=== PATIENT | female | born 1940 | race Caucasian/White ===

== ENCOUNTER 2017-02-20 09:25 | Inpatient (IN) ==
[2017-02-20] MEDS ORDERED: 0.9 % SODIUM CHLORIDE 250 ML IV SCH ×5 (09:45→14:20)
[2017-02-20 10:45] LABS: ALT/SGPT 6 U/l (0-40); Albumin/Globulin Ratio 1.7 (1.0-2.3); Alkaline Phosphatase 66 U/L (39-117); Blood Urea Nitrogen 17 mg/dl (8-23)
[2017-02-20 10:57] LABS: Basophils # (Auto) 0.1 K/mcL (0.0-0.3); Basophils % (Auto) 1.2 % (0.0-2.0); Eosinophils # (Auto) 0.4 K/mcL (0.0-0.7); Eosinophils % (Auto) 5.1 % (0.0-7.0); Granulocytes % (Auto) 75.6 % (38.0-78.0); Lymphocytes # (Auto) 1.1 K/mcL (1.5-4.8); Lymphocytes % (Auto) 15.1 % (15.5-49.0); Mean Cell Volume 95.9 fL (80.0-100.0); Mean Corpuscular HGB Conc 34.6 g/dL (31.0-36.0); Mean Corpuscular Hemoglobin 33.2 pg (26.0-34.0); Monocytes # (Auto) 0.2 K/mcL (0.1-0.9); Platelet Count 273 K/mcL (140-440); RBC 1.51 M/mcL (4.00-5.20); Red Cell Distribution Width 14.7 % (11.5-14.5)
[2017-02-20] MEDS ORDERED: ACETAMINOPHEN 325 MG TABLET PO ONE (11:20)
--- NOTE | 2017-02-20 11:47 | Emergency Department Note ---
Weakness HPI - General Chief complaint: Weakness Stated complaint: Weakness Time Seen by Provider: 02/20/17 09:58 Source: patient Mode of arrival: ambulatory Limitations: no limitations - History of Present Illness HPI Narrative: A 77-year-old female was sent over by nephrology because of a 5 point drop in hemoglobin found at last dialysis. She denies any blood or black stool. Her last labs it is normocytic anemia with a hemoglobin of 5.3 and MCV of 94. She denies any bleeding or bruising anywhere. She is not on a blood thinner. She feels weak and lightheaded since last week. She continues to have IBS symptoms of constipation versus diarrhea. No dysuria belly pain fever chills nausea vomiting. Notable recent kidney biopsy [address] Kuhn. I personally discussed the case with Dr. Harrison, the sequencing machine operator who sent her over - Related Data Home Medications Medication Instructions Recorded Confirmed lorazepam 1 mg tablet 1 mg PO .COMPLEX tab 09/14/14 02/20/17 lovastatin 40 mg tablet 40 mg PO QHS tab 09/14/14 02/20/17 nifedipine ER 30 mg 30 mg PO QDAY tab 09/14/14 02/20/17 tablet,extended release omega-3 fatty acids-fish oil 684 2 cap PO BID cap 09/14/14 02/20/17 mg-1,200 mg capsule,delayed release paroxetine 20 mg tablet 10 mg PO QDAY tab 09/14/14 02/20/17 propranolol 40 mg tablet 60 mg PO BID tab 09/14/14 02/20/17 Doxazosin Mesylate [Cardura] 1 mg PO BID 02/20/17 02/20/17 Omeprazole [PriLOSEC] 20 mg PO BIDAC 02/20/17 02/20/17 cloNIDine HCL [Catapres] 0.05 mg PO BID 02/20/17 02/20/17 Previous Rx's Medication Instructions Recorded enalapril maleate 20 mg tablet 10 mg PO QDAY #45 tab 01/24/16 calcium acetate 667 mg capsule 667 mg PO .TID with meals #270 cap 08/07/16 gabapentin 100 mg capsule 100 mg PO QHS #30 cap 11/09/16 furosemide 20 mg tablet 40 mg PO QDAY 30 Days #60 tab 11/10/16 sodium bicarbonate 650 mg tablet 1,300 mg PO BID 30 Days #120 tab 12/18/16 Allergies Allergy/AdvReac Type Severity Reaction Status Date / Time Tetracycline Allergy Severe Rash Verified 02/20/17 09:34 Hydralazine AdvReac Intermediate Other Verified 02/20/17 09:34 hydrocodone AdvReac Mild Other Verified 02/20/17 09:34 [From Lorcet (hydrocodone)] levofloxacin [From Levaquin] AdvReac Confusion Verified 02/20/17 09:34 Review of Systems All systems ED: reviewed and negative except as stated. Past Medical History - Past Medical History Attestation: Yes: The following information was validated with the patient. Medical history: Reports: arthritis, diabetes, GI bleed, hypertension, renal disease (On dialysis twice per week) Surgical history ED: Reports: cholecystectomy, hysterectomy, other (bladder, recent kidney biopsy) - Social History smoking status: Former smoker Physical Exam No acute distress. Resting comfortably. Normocephalic atraumatic. Conjunctive are clear sclerae nonicteric. No nasal discharge or congestion. Oropharynx is pink and moist. Heart is regular rate and rhythm no murmur appreciated. Lungs are clear to auscultation bilaterally without wheezes rales rhonchi or respiratory distress. Abdomen soft nontender nondistended. No peritoneal signs or guarding. Rectal exam shows old external hemorrhoid not actively bleeding. Fecal occult blood is negative. She has osteoarthritic changes to her hands mild to moderate. No pedal edema. Alert oriented able answer questions appropriately Limitations: no limitations Course Vital Signs Temperature 97.4 F 02/20/17 09:26 Respiratory Rate 14 02/20/17 09:26 Blood Pressure 149/49 02/20/17 09:26 Temperature 99.3 F H 02/21/17 04:01 Pulse Rate 62 02/21/17 06:01 Respiratory Rate 13 02/21/17 06:01 Blood Pressure 159/73 02/21/17 06:01 Pulse Oximetry (%) 99 02/21/17 06:01 Weakness - Lab Data Lab results reviewed: Yes I reviewed the patient's lab results. Result diagrams: 02/21/17 05:35 02/21/17 05:35 Lab Results 02/20/17 02/20/17 02/20/17 Range/Units 09:55 09:55 11:36 WBC 7.0 (4.5-11.0) K/mcL RBC 1.51 L (4.00-5.20) M/mcL Hgb 5.0 L* (12.0-15.0) g/dL Hct 14.4 L* (36.0-48.0) % MCV 95.9 (80.0-100.0) fL MCH 33.2 (26.0-34.0) pg MCHC 34.6 (31.0-36.0) g/dL RDW 14.7 H (11.5-14.5) % Plt Count 273 (140-440) K/mcL MPV 7.6 (7.4-10.4) fL Gran % 75.6 (38.0-78.0) % Lymph % (Auto) 15.1 L (15.5-49.0) % Citrus % (Auto) 3.0 (1.0-12.0) % Eos % (Auto) 5.1 (0.0-7.0) % Baso % (Auto) 1.2 (0.0-2.0) % Gran # 5.3 (1.8-8.0) K/mcL Lymph # (Auto) 1.1 L (1.5-4.8) K/mcL Citrus # (Auto) 0.2 (0.1-0.9) K/mcL Eos # (Auto) 0.4 (0.0-0.7) K/mcL Baso # (Auto) 0.1 (0.0-0.3) K/mcL Sodium 135 (133-145) mmol/L Potassium 3.3 (3.3-5.1) mmol/L Chloride 93 L (96-108) mmol/L Carbon Dioxide 30 (22-30) mmol/L Anion Gap 12.0 (8-16) BUN 17 (8-23) mg/dl Creatinine 1.8 H (0.6-1.1) mg/dl GFR Calculation 27 Glucose 137 H (70-105) mg/dL Calcium 8.3 L (8.6-10.4) mg/dl Total Bilirubin 0.3 (0.0-1.0) mg/dL AST 13 (0-37) U/l ALT 6 (0-40) U/l Alkaline Phosphatase 66 (39-117) U/L Total Protein 6.4 (5.9-8.4) gm/dL Albumin 4.0 (3.2-5.2) gm/dL Globulin 2.4 (2.2-3.7) gm/dL Albumin/Globulin Ratio 1.7 (1.0-2.3) Urine Color Straw Urine Appearance Clear Urine pH 8.0 (5.0-9.0) Ur Specific [place] 1.006 (1.000-1.035) Urine Protein 100 A (NEG) mg/dL Urine Glucose (UA) Negative (NEG) mg/dL Urine Ketones Neg (NEG) mg/dL Urine Occult Blood Neg (<0.03) mg/dL Urine Nitrate Neg (NEG) Urine Bilirubin Neg (NEG) mg/dL Urine Urobilinogen Neg (NEG) mg/dL Ur Leukocyte Esterase Neg (NEG) /uL Urine RBC 0 (0-1) /hpf Urine WBC < 1 (0-4) /hpf Ur Squamous Epith Cells 0 (0-4) /hpf Urine Bacteria 0 (0) /hpf Urine Mucus Few (0) /hpf Ur Culture Indicated? No - Radiology Data Radiology results reviewed: Yes I reviewed the patient's radiology results. Chest x-ray shows minimal vascular congestion CT scan of the abdomen pelvis without contrast shows no acute finding-no internal hemorrhage Disposition Pt seen by DESK REPRESENTATIVE/PA only: No Clinical Impression: Chronic kidney disease, stage IV (severe) Anemia Qualifiers: Anemia type: unspecified type Qualified Code(s): D64.9 - Anemia, unspecified Summary: Initially ordered 4 units of blood type and screen to go ahead and transfuse. We are avoiding using O- blood because the possibility of inducing antibodies, she has a possible donor match for transplant In the meantime we are giving her fluids and doing laboratory Discussed her case with Dr. Deondre Damon, our hospitalist, as well-she agrees to take the patient for further care and evaluation Disposition: Xfer As Inpt ([facility]) Condition: Fair
[2017-02-20 12:10] LABS: Appearance,Urine CLEAR; Bacteria,Urine 0 /hpf (0); Bilirubin,Urine NEG (NEG); Color,Urine STRAW; Glucose,Urine (UA) NEGATIVE (NEG); Leukocyte Esterase,Urine NEG /uL (NEG); Mucus,Urine FEW /hpf (0); Nitrate,Urine NEG (NEG); Protein,Urine 100 mg/dL (NEG); Specific Gravity,Urine 1.006 (1.000-1.035); Urine Blood NEG mg/dL (<0.03); Urine RBC 0 /hpf (0-1); Urine Squamous Epithelial Cell 0 /hpf (0-4); Urine WBC < 1 /hpf (0-4); Urobilinogen,Urine NEG (NEG)
--- NOTE | 2017-02-20 12:30 | Internal Med History&Physical ---
Medical - H&P: HPI Patient information: Note initiated : 02/20/17 at 12:26 pm Service Date, if different from initiated Date: [] Patient: Yessy Valderrama 77 y/o F admitted on for Weakness. Chief Complaint: [] History of present illness: Ms. 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 She had dialysis today, and apparently her labs showed her hemoglobin had dropped from 9 down to 5. Nephrology sent her over to be evaluated and ultimately admitted. The patient notes that she has been feeling quite weak and tired for about 1 week. She also reportedly had a kidney biopsy a few days ago. Her CAT scan from the ER did not show any signs of bleeding. She also reports that she was admitted here to the hospital last month with both diverticulitis and a stomach ulcer, and was started on Prilosec. I have a verbal report that her Epogen was held recently over concerns about possible renal cancer, but the patient is unaware of this. She states she does not take iron anymore. She denies any abdominal pain, nausea or vomiting or hemoptysis, or change in bowel habits. She denies bright red blood per rectum or melena. She says her bowel movements have always been irregular, but they are generally brown, and occur about every other day. She thinks she has been a little more short of breath the last few days, but says she is chronically short of breath with doing things like climbing stairs. Otherwise, she denies recent fever or chills, headaches or dizziness, new eye or ear symptoms, sore throat or cough, swollen glands, chest pain or palpitations, GI symptoms, dysuria. In spite of needing dialysis twice a week, she still drinks a fair amount of fluids during the day, and says she makes good urine. Medical History Prepyloric ulcer diagnosed on January 26, 2017. Diverticulitis (Acute), colon polyps diagnosed on colonoscopy October 19, 2016. Myelodysplastic syndrome. 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- Medicine Pathology, with focal global glomerulosclerosis, moderate tubular atrophy and interstitial fibrosis Edema (Chronic) Renal malignant neoplasm (Suspected) Hyponatremia (Acute) Hypokalemia (Acute) Gastroenteritis (Acute) Chronic kidney disease, stage IV (severe) (Chronic) S.Creat trend over the last one mth is 1.5-1.8-2.4-2.2-2.4-2.6-2.7 bun elevated 97-45-99-59-64-79-80 she has nephrotic range proteinuria she has monoclonal gammopathy and her KATIANA titer was mildly positive, repeat test was negative she also has h/o uncontrolled HTN renal biopsy shows arteriosclerosis from HTN, 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 and IF discussed with the pt renal function stable with no uremic symptoms dialysis options discussed, also discussed transplant options Hypertensive renal disease (Chronic) Diabetes mellitus (Chronic) She is on metformin for insulin resistance Anemia (Chronic)-baseline hemoglobin around 9.5, hematocrit 28 Secondary hyperparathyroidism of renal origin (Chronic) Hypercalcemia (Chronic) improved since indapamide was held she does have monoclonal gammopathy and she is following with oncology for this Hyponatremia (Chronic) intermittent low sodium levels, was severely low when she had vomiting and diarrhea Chronic kidney disease, stage III (moderate) (Chronic) History of bladder surgery (Acute) Renal failure (Acute 06/20/14) Progressive Renal Failure Proteinuria (Chronic 06/20/14) Insulin resistance (Acute)-nephrology reported history of type 2 diabetes, but patient is quite adamant that she just had insulin resistance, which she believes resolved. Hypertension, essential (Chronic 06/20/14) Will benefit from ACEI or ARB to help with proteinuria Surgical History Hx of biopsy (Chronic) 05/09/2015-[facility], Right kidney History of hysterectomy (Acute) History of cholecystectomy (Acute) History of surgery (Chronic 07/11/15) Bilateral upper extremity vein mapping Medication List calcium acetate 667 mg PO .TID with meals clonidine HCl 0.05 mg (1/2 x 0.1 mg) PO TID 30 days doxazosin 3 mg (1.5 x 2 mg) PO QDAY (order 1 mg p.o. twice daily) enalapril maleate 10 mg (1/2 x 20 mg) PO QDAY furosemide 40 mg (2 x 20 mg) PO QDAY 30 days gabapentin 100 mg PO QHS lorazepam 1 mg (patient reports she takes a half of a milligram 5 times a day) lovastatin 40 mg PO QHS nifedipine ER 30 mg PO QDAY omega-3 fatty acids-fish oil 684-1,200 mg 2 caps PO BID paroxetine 20 mg. Patient reports she takes 10 mg every morning, 20 mg nightly. propranolol 60 mg PO BID sodium bicarbonate 1,300 mg (2 x 650 mg) PO BID 30 days Omeprazole 20 mg p.o. twice daily Allergies/Adverse Reactions Tetracycline Allergy (Severe, Verified 02/03/17 09:12) Rash Hydralazine Adverse Reaction (Intermediate, Verified 02/03/17 09:12) Other acetaminophen [From Lorcet (hydrocodone)] Adverse Reaction (Mild, Verified 02/03 09:12) Other hydrocodone [From Lorcet (hydrocodone)] Adverse Reaction (Mild, Verified 09:12) Other levofloxacin [From Levaquin] Adverse Reaction (Verified 02/03/17 09:12) Confusion Family History Maternal Grandfather Chronic Kidney Disease Paternal Grandfather Type 1 diabetes mellitus Acute myocardial infarction Unknown Type 2 diabetes mellitus Father Malignant neoplasm-head and neck Acute myocardial infarction Paternal Grandmother Cerebrovascular accident Mother Cerebrovascular accident Social History Patient has been smoking since around age 32, up to 1 pack per day, she quit 8 months ago. She says she drinks alcohol about once a week. She does not use drugs. She lives alone. She has 2 daughters that live in [place]. Medical - H&P: Meds Home Medications Medication Instructions Recorded Confirmed Type lorazepam 1 mg tablet 1 mg PO .COMPLEX tab 09/14/14 02/20/17 History lovastatin 40 mg tablet 40 mg PO QHS tab 09/14/14 02/20/17 History nifedipine ER 30 mg 30 mg PO QDAY tab 09/14/14 02/20/17 History tablet,extended release omega-3 fatty acids-fish oil 684 2 cap PO BID cap 09/14/14 02/20/17 History mg-1,200 mg capsule,delayed release propranolol 40 mg tablet 60 mg PO BID tab 09/14/14 02/20/17 History enalapril maleate 20 mg tablet 10 mg PO QDAY #45 tab 01/24/16 02/20/17 Rx calcium acetate 667 mg capsule 667 mg PO .TID with meals #270 cap 08/07/1602/20 Rx gabapentin 100 mg capsule 100 mg PO QHS #30 cap 11/09/16 02/20/17 Rx furosemide 20 mg tablet 40 mg PO QDAY 30 Days #60 tab 11/10/16 02/20/17 Rx sodium bicarbonate 650 mg tablet 1,300 mg PO BID 30 Days #120 tab 12/18/1602/20 Rx Doxazosin Mesylate [Cardura] 1 mg PO BID 02/20/17 02/20/17 History Omeprazole [Prilosec] 20 mg PO BIDAC 02/20/17 02/20/17 History Acetaminophen [Tylenol] 650 mg PO Q6HP PRN tablet 02/21/17 Rx LORazepam [Ativan] 0.5 mg PO Q5H tablet 02/21/17 Rx Omeprazole [Prilosec] 20 mg PO BIDAC capsule 02/21/17 Rx PARoxetine HCL [Paxil] 10 mg PO QAM #1 tablet 02/21/17 Rx PARoxetine HCL [Paxil] 20 mg PO QHS #1 tab 02/21/17 Rx cloNIDine HCL [Catapres] 0.05 mg PO TID tablet 02/21/17 Rx Allergies Allergy/AdvReac Type Severity Reaction Status Date / Time Tetracycline Allergy Severe Rash Verified 02/20/17 09:34 Hydralazine AdvReac Intermediate Other Verified 02/20/17 09:34 hydrocodone AdvReac Mild Other Verified 02/20/17 09:34 [From Lorcet (hydrocodone)] levofloxacin [From Levaquin] AdvReac Confusion Verified 02/20/17 09:34 Medical - H&P: Exam - Constitutional Vitals: Temp Pulse Resp BP Pulse Ox 97.4 F 79 16 153/54 91 02/20/17 09:26 02/20/17 12:01 02/20/17 12:01 02/20/17 12:01 02/20/17 12:01 On exam, she is a well-developed well-nourished female in no acute distress. Head: Normocephalic, atraumatic. Eyes: PERRLA, EOMI, anicteric. Ears: TMs and canals are clear. Pharynx: Teeth are in good repair. Pharynx is clear. Mucosa appears normal. Neck: Is supple. She has soft bilateral carotid bruits. Jugular venous pressure is about 5 cm. No thyromegaly or lymphadenopathy is noted. Cardiac exam shows regular rate and rhythm with normal S1 and S2. There is a 2/ 6 systolic murmur noted about midway down the left sternal border. No rubs or gallops are noted. Lungs: She has a few crackles at the left base. She has decreased breath sounds at the right base, with scattered wheezes. Clear above. Abdomen: Is soft and nontender without obvious masses. Bowel sounds are active. There is no guarding or rebound. Extremities: Show no cyanosis, clubbing, edema. There is a small bruise noted over the right lower clark. Neurologic: Patient is alert and oriented, exam is grossly nonfocal. Skin exam does not show any worrisome lesions. Medical - H&P: Reslt - Labs CBC & Chem 7: 02/21/17 10:11 02/21/17 05:35 Labs: Short CBC 02/20/17 Range/Units 09:55 WBC 7.0 (4.5-11.0) K/mcL Hgb 5.0 L* (12.0-15.0) g/dL Hct 14.4 L* (36.0-48.0) % Plt Count 273 (140-440) K/mcL BMP 02/20/17 09:55 Sodium 135 Potassium 3.3 Chloride 93 L Carbon Dioxide 30 BUN 17 Creatinine 1.8 H Glucose 137 H Calcium 8.3 L Liver Function 02/20/17 Range/Units 09:55 Total Bilirubin 0.3 (0.0-1.0) mg/dL AST 13 (0-37) U/l ALT 6 (0-40) U/l Alkaline Phosphatase 66 (39-117) U/L Albumin 4.0 (3.2-5.2) gm/dL Urine 02/20/17 Range/Units 11:36 Urine Color Straw Urine Appearance Clear Urine pH 8.0 (5.0-9.0) Ur Specific [place] 1.006 (1.000-1.035) Urine Protein 100 A (NEG) mg/dL Urine Glucose (UA) Negative (NEG) mg/dL February 20: Chest x-ray: FINDINGS: The heart is mildly enlarged, but unchanged. Mediastinum is unremarkable. Pulmonary vessels are borderline distended and there is minimal interstitial edema. No infiltrates Tiny bilateral pleural effusions noted CT of the abdomen: IMPRESSION: 1. Multiple cysts throughout the kidney: Both are simple but some are hyperdense - as previously seen. There is no evidence of hemorrhage or other complication following CT-guided biopsy of the lesion in the inferior right kidney three days prior. 2. Small ventral hernia, above the symphysis pubis, containing small bowel bowel - as previously seen 3. Sigmoid diverticulosis, but no evidence of diverticulitis February 17: Kidney biopsy, right: Shows hemorrhagic fibrous tissue, suggestive of a cyst with hemorrhagic degeneration. No evidence of malignancy. 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 Hematologic. Patient presents with acute drop in her hemoglobin, associated with mild symptoms of fatigue and dyspnea. Etiology of her anemia is not immediately clear, but likely multifactorial. Probable etiologies include bone marrow dysfunction related to chronic kidney disease, recent peptic ulcer, low iron intake. Stool is currently guaiac negative, so suggest no acute GI bleed. She did have recent colonoscopy and upper endoscopy. -Admit to transfuse to hemoglobin of greater than 7. -Guaiac all stools. [place]-resume proton pump inhibitor. -Consider follow-up with GI, as she says she is due for follow-up upper endoscopy this her next month. 2. Renal. End-stage renal disease. She is followed by nephrology. She may be somewhat volume overloaded at this time. Case was reviewed with Dr. Harrison. We will give 2 units of blood tonight, followed by Jam. We will decide after that if she is handling volume well, and if she should have more blood. 3. CODE STATUS: Patient signed a DNR order recently, but now says she would rather be a full code. She reports her son, Jhonatan, will act as her POA. 4. Cardiac. Chest x-ray suggestive of possible mild pulmonary vascular congestion. We will follow her volume status closely, as above. 5. DVT prophylaxis: In view of her severe anemia, I will withhold heparin at this time. We can use SCDs for now. review with nephrology tomorrow. 6. History of chronic hip and back pain, and what patient describes as a possible neuropathy. Continue gabapentin. 7. Psychiatric. Patient reports history of panic disorder. She is treated with Paxil and scheduled 5 times a day Ativan, which seems an unusual regimen, but the patient is quite insistent that she has been stable on this for a long time. 8. Pulmonary. Chest x-ray suggests pulmonary fibrosis, but patient is quite insistent she does not have this. 9. Reported history of insulin resistance and possible early diabetes. Patient also denies that she is ever been diagnosed with diabetes. 10. Hypertension. Blood pressure is actually running quite high this evening. Continue her usual medications, and add as needed clonidine. This visit took approximately 65 minutes, to review the patient's case with the ER MD, review her old records and test results, interview and examine her, and write orders. I also touched base briefly with Dr. Harrison of nephrology.
[2017-02-20] MEDS ORDERED: ALBUTEROL SULFATE 2.5 MG/3 ML NEBULIZER NEB PRN ×2 (12:56→14:20)
[2017-02-20] MEDS ORDERED: DOCUSATE SODIUM 100 MG CAPSULE PO PRN ×2 (12:56→14:20)
[2017-02-20] MEDS ORDERED: ACETAMINOPHEN 325 MG TABLET PO PRN ×2 (12:56→14:20)
[2017-02-20] MEDS ORDERED: ONDANSETRON 4 MG/2 ML VIAL IV PRN ×2 (12:56→14:20)
[2017-02-20] MEDS ORDERED: FUROSEMIDE 100 MG/10 ML VIAL IV SCH (12:56)
[2017-02-20] MEDS: cloNIDine HCL 0.1 MG TABLET PO SCH ×3 (15:38→22:13)
[2017-02-20] MEDS ORDERED: cloNIDine HCL 0.1 MG TABLET PO PRN (16:28)
[2017-02-20] MEDS: FUROSEMIDE 100 MG/10 ML VIAL IV SCH ×2 (16:44→22:12)
[2017-02-20] MEDS: CALCIUM ACETATE 667 MG CAPSULE PO SCH (16:45)
--- NOTE | 2017-02-20 16:58 | XRay Report ---
CLINICAL INFORMATION: Wheezing and shortness of breath COMPARISON: None. FINDINGS: The heart is mildly enlarged. Mediastinum and pulmonary vessels are normal. The lungs are clear. Small bilateral pleural effusions IMPRESSION: Mild cardiomegaly. Mild bilateral pleural effusions Interpreted and Authenticated by: Sunday Kuhn 02/20/17
--- NOTE | 2017-02-20 17:56 | Cat Scan Report ---
CLINICAL INFORMATION: Three days status post biopsy of lesion - inferior right kidney. Increasing flank pain and decreasing hematocrit COMPARISON: Preprocedure abdomen and pelvic CT from 01/19/2017. TECHNIQUE: 0.625 mm helical slices were obtained from the mid heart through the subtrochanteric regions. Following reconstruction, 2.5 mm sagittal, coronal and axial reformatted images were processed and reviewed at bone and soft tissue windows.The exam was performed using radiation dose optimization techniques including, but not limited to, automated exposure control, adjustment of the mA and/or kV according to patient size and use of iterative reconstruction technique. FINDINGS: Lung bases show no abnormality - no effusion. Visualized heart is mildly enlarged. Images through the abdomen with scattered simple cysts within the noncontrasted liver which are stable. There are multiple cysts throughout both kidneys most of which are simple but some are hyperdense. There are identical to the previous prebiopsy film. There is no evidence of perinephric hemorrhage or other postbiopsy complication. The spleen and pancreas are normal in size and configuration. Heavy calcific plaque noted in the abdominal aorta and branches, but caliber is normal. There is mild left adrenal hyperplasia which is unchanged Stomach, small and large bowel show mild symmetric dilatation compatible with mild ileus. Sigmoid diverticulosis again noted. No free air, adenopathy or free fluid. Pelvic images show hysterectomy changes. There is a 2.5 cm diverticulum projecting the right urinary bladder. Ventral wall abdominal hernia lower pelvic region is unchanged. Bone windows show stable degenerative changes in the lumbar spine IMPRESSION: 1. Multiple cysts throughout the kidney: Both are simple but some are hyperdense - as previously seen. There is no evidence of hemorrhage or other complication following CT-guided biopsy of the lesion in the inferior right kidney three days prior. 2. Small ventral hernia, above the symphysis pubis, containing small bowel bowel - as previously seen 3. Sigmoid diverticulosis, but no evidence of diverticulitis Interpreted and Authenticated by: Sunday Kuhn 02/20/17
[2017-02-20 19:07] LABS: Mean Cell Volume 93.4 fL (80.0-100.0); Mean Corpuscular HGB Conc 34.6 g/dL (31.0-36.0); Mean Corpuscular Hemoglobin 32.3 pg (26.0-34.0); Platelet Count 186 K/mcL (140-440); RBC 1.91 M/mcL (4.00-5.20); Red Cell Distribution Width 15.1 % (11.5-14.5)
[2017-02-20 19:11] LABS: Haptoglobin 169 mg/dl (30-200)
[2017-02-20 19:12] LABS: Anisocytosis FEW (NONE SEEN); Eosinophils % (Manual) 6 % (0-7); Lymphocytes % 13 % (15-49); Monocytes % (Manual) 6 % (1-12); Platelet Estimate NORMAL (NORMAL); RBC Morphology ABNORM (NORMAL); Segmented Neutrophils % 75 % (38-78)
[2017-02-20] MEDS: LORazepam 1 MG TABLET PO SCH (20:19)
[2017-02-20] MEDS: SODIUM BICARBONATE 650 MG TABLET PO SCH (20:19)
[2017-02-20] MEDS: OMEPRAZOLE 20 MG CAPSULE PO SCH (20:19)
[2017-02-20] MEDS: FISH OIL 1,000 MG CAPSULE PO SCH (20:19)
[2017-02-20] MEDS: PROPRANOLOL 40 MG TABLET PO SCH (20:19)
[2017-02-20] MEDS ORDERED: SIMVASTATIN 20 MG TABLET PO SCH (21:00)
[2017-02-20] MEDS ORDERED: GABAPENTIN 100 MG CAPSULE PO SCH (21:00)
[2017-02-20] MEDS ORDERED: HEPARIN 5,000 UNIT/ML VIAL SQ SCH (21:00)
[2017-02-20] MEDS: DOXAZOSIN MESYLATE 1 MG PO SCH (23:54)
[2017-02-21 06:46] LABS: ALT/SGPT 6 U/l (0-40); Albumin 3.5 gm/dL (3.2-5.2); Albumin/Globulin Ratio 1.5 (1.0-2.3); Alkaline Phosphatase 56 U/L (39-117); Bilirubin,Direct 0.2 mg/dL (0.0-0.3); Blood Urea Nitrogen 39 mg/dl (8-23); Gamma Glutamyl Transpeptidase 22 U/L (5-36); Magnesium 1.5 mg/dL (1.6-2.5); Uric Acid 4.6 mg/dL (2.5-8.0)
[2017-02-21 06:59] LABS: Basophils # (Auto) 0.1 K/mcL (0.0-0.3); Basophils % (Auto) 1.8 % (0.0-2.0); Eosinophils # (Auto) 0.5 K/mcL (0.0-0.7); Granulocytes % (Auto) 68.1 % (38.0-78.0); Lymphocytes % (Auto) 14.7 % (15.5-49.0); Mean Cell Volume 92.8 fL (80.0-100.0); Mean Corpuscular HGB Conc 34.1 g/dL (31.0-36.0); Mean Corpuscular Hemoglobin 31.6 pg (26.0-34.0); Monocytes # (Auto) 0.5 K/mcL (0.1-0.9); Monocytes % (Auto) 8.4 % (1.0-12.0); Platelet Count 190 K/mcL (140-440); RBC 2.88 M/mcL (4.00-5.20); Red Cell Distribution Width 14.2 % (11.5-14.5)
[2017-02-21] MEDS ORDERED: OMEPRAZOLE 20 MG CAPSULE PO SCH (07:30)
--- NOTE | 2017-02-21 07:48 | Nephrology Consult Note ---
History of Present Illness - Reason for Consult Patient information: Note initiated : 02/21/17 at 7:42 am Service Date, if different from initiated Date: [] Patient: Yessy Valderrama 77 y/o F admitted on 02/20/17 for Weakness. Chief Complaint: [] - Chief Complaint weakness; symptomatic anemia - History of Present Illness 77 years old female, on in-center hemodialysis, admitted with symptomatic anemia. She reports having EGD and colonoscopy about one month back when she melena. She reported that she was found to have peptic ulcer. She is on PPIs. Her medical record also documents h/o "myelodysplastic syndrome" and monoclonal gammopathy although she denied that she follows with project inspector. She was sent to ER after hemoglobin was noted to be 5.3 g/gl (down from about 10 g/dl in early last month). She denied hematemesis, melena, hematochezia or vaginal bleeding. She also had biopsy of renal cyst last week (no renal cell cancer reported on biopsy, showed hemorrhagic cyst) She is receiving third unit of PRBCs. Yesterday, her post-dialysis weight was about 1 kg above her dry weight target. She was given Lasix iv and has responded to that since she has residual renal function. Review of Systems Constitutional: as per HPI Past History Past medical history: Medical History Prepyloric gastric ulcer. Diverticulitis. Myelodysplastic syndrome. Hypertension. Diabetes mellitus. Anemia. Secondary hyperparathyroidism. Monoclonal gammopathy. Proteinuria. End stage renal disease. Renal cyst Past surgical history: Surgical History / Procedures: Renal biopsy - twice. EGD / colonoscopy. Right arm AV fistula Past family history: Family History Maternal Grandfather Chronic Kidney Disease Paternal Grandfather Type 1 diabetes mellitus Acute myocardial infarction Unknown Type 2 diabetes mellitus Father Malignant neoplasm-head and neck Acute myocardial infarction Paternal Grandmother Cerebrovascular accident Mother Cerebrovascular accident Past social history: Social History Patient has been smoking since around age 32, up to 1 pack per day, she quit 8 months ago. She says she drinks alcohol about once a week. She does not use drugs. She lives alone. She has 2 daughters that live in [place]. Medications and Allergies Home Medications Medication Instructions Recorded Confirmed Type lorazepam 1 mg tablet 1 mg PO .COMPLEX tab 09/14/14 02/20/17 History lovastatin 40 mg tablet 40 mg PO QHS tab 09/14/14 02/20/17 History nifedipine ER 30 mg 30 mg PO QDAY tab 09/14/14 02/20/17 History tablet,extended release omega-3 fatty acids-fish oil 684 2 cap PO BID cap 09/14/14 02/20/17 History mg-1,200 mg capsule,delayed release paroxetine 20 mg tablet 10 mg PO QDAY tab 09/14/14 02/20/17 History propranolol 40 mg tablet 60 mg PO BID tab 09/14/14 02/20/17 History enalapril maleate 20 mg tablet 10 mg PO QDAY #45 tab 01/24/16 02/20/17 Rx calcium acetate 667 mg capsule 667 mg PO .TID with meals #270 cap 08/07/1602/20 Rx gabapentin 100 mg capsule 100 mg PO QHS #30 cap 11/09/16 02/20/17 Rx furosemide 20 mg tablet 40 mg PO QDAY 30 Days #60 tab 11/10/16 02/20/17 Rx sodium bicarbonate 650 mg tablet 1,300 mg PO BID 30 Days #120 tab 12/18/1602/20 Rx Doxazosin Mesylate [Cardura] 1 mg PO BID 02/20/17 02/20/17 History Omeprazole [PriLOSEC] 20 mg PO BIDAC 02/20/17 02/20/17 History cloNIDine HCL [Catapres] 0.05 mg PO BID 02/20/17 02/20/17 History Allergies Allergy/AdvReac Type Severity Reaction Status Date / Time Tetracycline Allergy Severe Rash Verified 02/20/17 09:34 Hydralazine AdvReac Intermediate Other Verified 02/20/17 09:34 hydrocodone AdvReac Mild Other Verified 02/20/17 09:34 [From Lorcet (hydrocodone)] levofloxacin [From Levaquin] AdvReac Confusion Verified 02/20/17 09:34 Exam - Vital Signs Vital signs: Temp Pulse Resp BP Pulse Ox 99.3 F H 62 13 159/73 99 02/21/17 04:01 02/21/17 06:01 02/21/17 06:01 02/21/17 06:01 02/21/17 06:01 - General Appearance General appearance: well-developed, well-nourished, appears started age EENT: PERRL Neck: no JVD, no thyromegaly Cardiology: no murmurs, no rub, no gallops, regular rhythm Gastrointestinal: no tenderness Neurologic: no focal deficit, no asterixis Results - Lab Results 02/21/17 05:35 02/21/17 05:35 Most recent lab results Calcium 8.8 mg/dl (8.6-10.4) 02/21/17 05:35 Phosphorus 4.3 mg/dL (2.7-4.5) 02/21/17 05:35 Magnesium 1.5 mg/dL (1.6-2.5) L 02/21/17 05:35 Assessment and Plan (1) Anemia ESRD: s/p HD yesterday about patient HD center. She has tolerated PRBCs well. No signs or symptoms of fluid overload. Next dialysis planned for 02/23/17 Anemia: she could have low-grade GI blood loss despite negative heme checks vs poor bone marrow response to Aranesp that she receives at dialysis. s/p PRBCs. Hb has improved BP control is acceptable at present Continue Phoslo for control of hyperphosphatemia Stable for discharge from renal stand point. Plan would be for her follow up at dialysis center on 02/23/17. Check H/H. Out patient hematology evaluation Status: Chronic Qualifiers: Anemia type: unspecified type Qualified Code(s): D64.9 - Anemia, unspecified
[2017-02-21] MEDS ORDERED: PARoxetine 20 MG TABLET PO SCH (09:00)
[2017-02-21] MEDS ORDERED: LISINOPRIL 10 MG TABLET PO SCH (09:00)
[2017-02-21] MEDS ORDERED: DOXAZOSIN 4 MG TABLET PO SCH ×2 (09:00→21:00)
[2017-02-21] MEDS ORDERED: NIFEdipine 30 MG TAB.XL.24H PO SCH (09:00)
[2017-02-21] MEDS: cloNIDine HCL 0.1 MG TABLET PO SCH ×2 (09:25→09:34)
[2017-02-21] MEDS ORDERED: DOXAZOSIN 1 MG TABLET PO SCH (09:30)
[2017-02-21] MEDS: PROPRANOLOL 40 MG TABLET PO SCH (09:31)
[2017-02-21] MEDS: FISH OIL 1,000 MG CAPSULE PO SCH (09:32)
[2017-02-21] MEDS: SODIUM BICARBONATE 650 MG TABLET PO SCH (09:33)
[2017-02-21] MEDS: CALCIUM ACETATE 667 MG CAPSULE PO SCH ×2 (09:34→12:44)
[2017-02-21] MEDS: LORazepam 1 MG TABLET PO SCH (09:35)
[2017-02-21] MEDS: OMEPRAZOLE 20 MG CAPSULE PO SCH (09:35)
[2017-02-21] MEDS: DOXAZOSIN MESYLATE 1 MG PO SCH (10:02)
--- NOTE | 2017-02-21 10:13 | XRay Report ---
CLINICAL INFORMATION: CHF COMPARISON: 02/20/2017 FINDINGS: The heart is mildly enlarged, but unchanged. Mediastinum is unremarkable. Pulmonary vessels are borderline distended and there is minimal interstitial edema. No infiltrates Tiny bilateral pleural effusions noted IMPRESSION: Mild CHF or volume overload Interpreted and Authenticated by: Sunday Kuhn 02/21/17
[2017-02-21] MEDS ORDERED: LORazepam 0.5 MG TABLET PO SCH (12:00)
--- NOTE | 2017-02-21 12:34 | Discharge Summary ---
Medical - DS: Prov Patient information: Note initiated : 02/21/17 at 12:21 pm Service Date, if different from initiated Date: [] Patient: Yessy Valderrama 77 y/o F admitted on 02/20/17 for Weakness. Chief Complaint: [] Date of admission: 02/20/17 12:40 Discharge date: 02/21/17 Primary care physician: Vasu Lazo Admitting clinician: Mary Carmen Greene Consults: Dr Harrison, nephrology Attending physician on discharge: Mary Carmen Greene Medical - DS: Meds - Discharge Medications Prescriptions: PARoxetine HCL [Paxil] 20 mg PO QHS #1 tab PARoxetine HCL [Paxil] 10 mg PO QAM #1 tablet Active and Home Medications: Discharge medications: Same as on admission. Continue Prilosec. Consider iron supplementation. Previous home Medications: lorazepam 1 mg tablet 1 mg PO patient reports she takes 1/2 mg 5 times per day lovastatin 40 mg tablet 40 mg PO QHS tab 09/14/14 [History Confirmed 02/20/17 Last Taken 02/20/17] nifedipine ER 30 mg tablet,extended release 30 mg PO QDAY tab 09/14/14 [ History Confirmed 02/20/17 Last Taken 02/20/17] omega-3 fatty acids-fish oil 684 mg-1,200 mg capsule,delayed release 2 cap PO BID cap 09/14/14 [History Confirmed 02/20/17 Last Taken 02/20/17] paroxetine 20 mg tablet --patient reports she takes 10 mg every morning, 20 mg every afternoon propranolol 40 mg tablet 60 mg PO BID tab 09/14/14 [History Confirmed 02/20/17 Last Taken 02/20/17] enalapril maleate 20 mg tablet 10 mg PO QDAY #45 tab 01/24/16 [Rx Confirmed Last Taken 02/20/17] calcium acetate 667 mg capsule 667 mg PO .TID with meals #270 cap 08/07/16 [Rx Confirmed 02/20/17 Last Taken 02/20/17] gabapentin 100 mg capsule 100 mg PO QHS #30 cap 11/09/16 [Rx Confirmed 02/20/17 Last Taken 02/20/17] furosemide 20 mg tablet 40 mg PO QDAY 30 Days #60 tab 11/10/16 [Rx Confirmed Last Taken 02/20/17] sodium bicarbonate 650 mg tablet 1,300 mg PO BID 30 Days #120 tab 12/18/16 [Rx Confirmed 02/20/17 Last Taken 02/20/17] Doxazosin Mesylate [Cardura] 1 mg PO BID 02/20/17 [History Confirmed 02/20/17 Last Taken 02/20/17] Omeprazole [PriLOSEC] 20 mg PO BIDAC 02/20/17 [History Confirmed 02/20/17 Last Taken 02/20/17] cloNIDine HCL [Catapres] 0.05 mg PO BID 02/20/17 [History Confirmed 02/20/17 Last Taken 02/20/17] Medical - DS: Hosp Hospital course: Mr. Valderrama is a 77 year old F February 20, 2017:History of present illness: Ms. 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 She had dialysis today, and apparently her labs showed her hemoglobin had dropped from 9 down to 5. Nephrology sent her over to be evaluated and ultimately admitted. The patient notes that she has been feeling quite weak and tired for about 1 week. She also reportedly had a kidney biopsy a few days ago. Her CAT scan from the ER did not show any signs of bleeding. She also reports that she was admitted here to the hospital last month with both diverticulitis and a stomach ulcer, and was started on Prilosec. I have a verbal report that her Epogen was held recently over concerns about possible renal cancer, but the patient is unaware of this. She states she does not take iron anymore. She denies any abdominal pain, nausea or vomiting or hemoptysis, or change in bowel habits. She denies bright red blood per rectum or melena. She says her bowel movements have always been irregular, but they are generally brown, and occur about every other day. She thinks she has been a little more short of breath the last few days, but says she is chronically short of breath with doing things like climbing stairs. Otherwise, she denies recent fever or chills, headaches or dizziness, new eye or ear symptoms, sore throat or cough, swollen glands, chest pain or palpitations, GI symptoms, dysuria. In spite of needing dialysis twice a week, she still drinks a fair amount of fluids during the day, and says she makes good urine. February 21: Patient was admitted and transfused 3 units of packed red blood cells. She was given 80 mg of Lasix after the first and second units, and responded with good urine output. She diuresed approximately 1800 mL over the last 2 days. Today, she states she is feeling stronger and more like herself. She did not have any apparent reaction to yesterday's treatments. She was also evaluated by Dr. Harrison of nephrology today, and we both feel that she is stable for discharge. Admission hemoglobin was 7.1, with hematocrit of 20.7. She had labs twice today , both showing hemoglobin of 9-9.6 with hematocrit of 27. Stool was guaiac negative. Prilosec was resumed for her recent history of duodenal ulcer. She will be discharged home today. She is to follow-up with nephrology on Wednesday and have a repeat CBC at that time. She should also follow-up with GI as they have discussed possible follow-up upper endoscopy. Nephrology also thought she might warrant hematology evaluation given the severity of her anemia. Today, she denies fever chills, chest pain or shortness of breath, GI or complaints. On exam, she is awake and alert and in good spirits. Cardiac exam shows regular rate and rhythm. Lungs have a few crackles at the bases. Abdomen is soft and nontender. Extremities show no edema. Assessment and plan: #1. Hematologic. Patient presents with acute drop in her hemoglobin, associated with mild symptoms of fatigue and dyspnea. Etiology of her anemia is not immediately clear, but likely multifactorial. Probable etiologies include bone marrow dysfunction related to chronic kidney disease, recent peptic ulcer, low iron intake. Stool is currently guaiac negative, so suggest no acute GI bleed. She did have recent colonoscopy and upper endoscopy. -Status post transfusion 3 units packed red blood cells. -resume proton pump inhibitor. -Consider follow-up with GI, as she says she is due for follow-up upper endoscopy this her next month. 2. Renal. End-stage renal disease. She is followed by nephrology. She appeared somewhat volume overloaded on admission, but responded well to Lasix. BUN and creatinine are increased today. She is to follow-up with nephrology in 2 days. they will recheck her hemoglobin as well. 3. CODE STATUS: Patient signed a DNR order recently, but now says she would rather be a full code. She reports her son, Jhonatan, will act as her POA. 4. Cardiac. Chest x-ray suggestive of possible mild pulmonary vascular congestion. She is clinically euvolemic. 5. DVT prophylaxis: In view of her severe anemia, I held heparin . We can use SCDs for now. 6. History of chronic hip and back pain, and what patient describes as a possible neuropathy. Continue gabapentin. 7. Psychiatric. Patient reports history of panic disorder. She is treated with Paxil and scheduled 5 times a day Ativan, which seems an unusual regimen, but the patient is quite insistent that she has been stable on this for a long time. 8. Pulmonary. Chest x-ray suggests pulmonary fibrosis, but patient is quite insistent she does not have this. 9. Reported history of insulin resistance and possible early diabetes. Patient also denies that she is ever been diagnosed with diabetes. 10. Hypertension. Blood pressure was quite high last night, but is running close to normal this morning. Discharge diagnosis: Severe anemia of uncertain cause. Status post transfusion. Volume overloa - Time Spent with Patient Total time spent providing and/or coordinating discharge services: Greater than 30 minutes Medical - DS: Exam - Constitutional Vitals: Vital Signs Temp Pulse Pulse Resp BP BP Pulse Ox 02/21/17 12:00 98.5 F 21 137/57 94 02/21/17 07:54 98.5 F 60 12 95 02/21/17 07:01 64 19 138/69 98 02/21/17 06:01 62 13 159/73 99 02/21/17 05:00 63 17 155/65 100 02/21/17 04:01 99.3 F H 18 153/66 99 02/21/17 03:01 59 L 16 153/65 100 02/21/17 02:01 14 151/55 02/21/17 01:01 60 16 148/57 97 02/21/17 00:35 60 18 141/50 97 02/21/17 00:23 63 19 138/57 94 02/21/17 00:21 63 16 116/105 95 02/21/17 00:01 98.6 F 62 16 145/53 99 02/20/17 23:01 65 18 144/56 99 02/20/17 22:01 65 18 138/52 99 02/20/17 21:01 68 21 143/53 99 02/20/17 20:01 98.4 F 15 147/56 99 02/20/17 19:01 65 26 H 154/53 96 02/20/17 18:14 70 15 161/56 98 02/20/17 17:35 21 165/54 98 02/20/17 17:32 19 88/45 97 02/20/17 17:01 19 175/75 97 02/20/17 16:31 21 168/71 97 02/20/17 16:06 99.0 F H 20 02/20/17 16:01 20 174/63 02/20/17 15:33 98.3 F 22 161/117 93 02/20/17 15:31 21 180/64 94 02/20/17 15:29 13 180/59 93 02/20/17 15:03 17 161/117 95 02/20/17 14:31 20 165/137 94 02/20/17 14:01 99.0 F H 19 185/70 97 02/20/17 13:31 15 176/64 99 02/20/17 13:14 21 177/67 99 02/20/17 12:56 20 175/66 97 02/20/17 12:53 99.1 F H 79 14 183/65 95 02/20/17 12:40 99.0 F H 70 16 175/66 97 Intake and Output 02/20/17 02/21/17 02/21/17 21:59 05:59 13:59 Intake Total 620 / 620 596 / 596 500 / 500 Output Total 1600 / 1600 950 / 950 1425 / 1425 Balance -980 / -980 -354 / -354 -925 / -925 Intake: IV 500 / 500 Oral 620 / 620 Blood Product 596 / 596 Output: Urine Catheter Amount 1600 / 1600 950 / 950 1425 / 1425 Other: # Bowel Movements 0 Weight 134 lb 6 oz Medical - DS: Data Labs on day of discharge: Labs from last 24 hours 02/21/17 02/21/17 02/21/17 10:11 05:35 05:35 WBC 6.5 RBC 2.88 L Hgb 9.6 L 9.1 L Hct 27.6 L 26.7 L MCV 92.8 MCH 31.6 MCHC 34.1 RDW 14.2 Plt Count 190 MPV 7.8 Gran % 68.1 Lymph % (Auto) 14.7 L [place] % (Auto) 8.4 Eos % (Auto) 7.0 Baso % (Auto) 1.8 Gran # 4.4 Lymph # (Auto) 1.0 L [place] # (Auto) 0.5 Eos # (Auto) 0.5 Baso # (Auto) 0.1 Total Counted Seg Neutrophils % Band Neutrophils % Lymphocytes % Monocytes % (Manual) Eosinophils % (Manual) Platelet Estimate RBC Morphology Anisocytosis Haptoglobin Sodium 139 Potassium 4.0 Chloride 96 Carbon Dioxide 28 Anion Gap 15.0 BUN 39 H Creatinine 3.5 H GFR Calculation 12 Glucose 115 H Uric Acid 4.6 Calcium 8.8 Phosphorus 4.3 Magnesium 1.5 L Total Bilirubin 1.2 H Direct Bilirubin 0.2 GGT 22 AST 12 ALT 6 Alkaline Phosphatase 56 Lactate Dehydrogenase 212 Total Protein 5.8 L Albumin 3.5 Globulin 2.3 Albumin/Globulin Ratio 1.5 Triglycerides 159 H 02/21/17 02/20/17 02/20/17 05:35 23:05 17:58 WBC RBC Hgb TNP 7.1 L Hct Not Reportable 20.7 L* MCV MCH MCHC RDW Plt Count MPV Gran % Lymph % (Auto) [place] % (Auto) Eos % (Auto) Baso % (Auto) Gran # Lymph # (Auto) [place] # (Auto) Eos # (Auto) Baso # (Auto) Total Counted Seg Neutrophils % Band Neutrophils % Lymphocytes % Monocytes % (Manual) Eosinophils % (Manual) Platelet Estimate RBC Morphology Anisocytosis Haptoglobin 169 Sodium Potassium Chloride Carbon Dioxide Anion Gap BUN Creatinine GFR Calculation Glucose Uric Acid Calcium Phosphorus Magnesium Total Bilirubin Direct Bilirubin GGT AST ALT Alkaline Phosphatase Lactate Dehydrogenase Total Protein Albumin Globulin Albumin/Globulin Ratio Triglycerides 02/20/17 02/20/17 17:58 17:58 WBC 5.6 RBC 1.91 L Hgb 6.2 L* TNP Hct 17.8 L* TNP MCV 93.4 MCH 32.3 MCHC 34.6 RDW 15.1 H Plt Count 186 MPV 7.8 Gran % Lymph % (Auto) [place] % (Auto) Eos % (Auto) Baso % (Auto) Gran # Lymph # (Auto) [place] # (Auto) Eos # (Auto) Baso # (Auto) Total Counted 100 Seg Neutrophils % 75 Band Neutrophils % Not Reportable Lymphocytes % 13 L Monocytes % (Manual) 6 Eosinophils % (Manual) 6 Platelet Estimate Normal RBC Morphology Abnorm A Anisocytosis Few A Haptoglobin Sodium Potassium Chloride Carbon Dioxide Anion Gap BUN Creatinine GFR Calculation Glucose Uric Acid Calcium Phosphorus Magnesium Total Bilirubin Direct Bilirubin GGT AST ALT Alkaline Phosphatase Lactate Dehydrogenase Total Protein Albumin Globulin Albumin/Globulin Ratio Triglycerides February 21: Chest x-ray: Continues to suggest mild CHF. February 20: Chest x-ray: FINDINGS: The heart is mildly enlarged, but unchanged. Mediastinum is unremarkable. Pulmonary vessels are borderline distended and there is minimal interstitial edema. No infiltrates Tiny bilateral pleural effusions noted CT of the abdomen: IMPRESSION: 1. Multiple cysts throughout the kidney: Both are simple but some are hyperdense - as previously seen. There is no evidence of hemorrhage or other complication following CT-guided biopsy of the lesion in the inferior right kidney three days prior. 2. Small ventral hernia, above the symphysis pubis, containing small bowel bowel - as previously seen 3. Sigmoid diverticulosis, but no evidence of diverticulitis Urinalysis: Showed 100 mg of protein, but was otherwise normal. Nasal MRSA screen was negative. February 17: Kidney biopsy, right: Shows hemorrhagic fibrous tissue, suggestive of a cyst with hemorrhagic degeneration. No evidence of malignancy. Medical - DS: A/P - Patient/Caregiver Discharge Instructions Activity: increase activity as tolerated Diet: Renal Additional Instructions: 1. Severe anemia. You were given 3 units of red blood cells. Please follow-up with your practice clinician on Wednesday, and have a repeat blood test done. Please continue taking Prilosec for year history of stomach ulcer. Please consider referral to a line maintenance technician to look further into your anemia. Call your doctor or come back to the emergency room for increasing weakness, shortness of breath, signs of bleeding. #2. On admission you had signs of excess fluid in your lungs. Please review with your kidney doctor how much fluid you should drink every day. Please weigh yourself every morning after emptying your bladder and keep a diary. Take this with you to your doctor's appointments. Notify your doctors of more than a 2 pound weight gain. Prescriptions: PARoxetine HCL [Paxil] 20 mg PO QHS #1 tab PARoxetine HCL [Paxil] 10 mg PO QAM #1 tablet - Problem Maintenance (1) Acute pure red cell anemia Status: Acute (2) Pulmonary vascular congestion Status: Acute (3) Chronic kidney disease, stage IV (severe) Status: Chronic Comment: From nephrology:S.Creat trend over the last one mth is 1.5-1.8-2.4-2.2-2.4-2.6-2.7 bun elevated 50-27-75-59-64-79-80 she has nephrotic range proteinuria she has monoclonal gammopathy and her KATIANA titer was mildly positive, repeat test was negative she also has h/o uncontrolled HTN renal biopsy shows arteriosclerosis from HTN, 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 and IF discussed with the pt renal function stable with no uremic symptoms dialysis options discussed, also discussed transplant options advised home HD nurse to call the pt and educate about options will cut back on lasix and follow in 4 weeks (4) Insulin resistance Status: Acute (5) Hypertension, essential Status: Chronic Comment: BPs overall better Pt will keep a BP log and bring along to next visit no med changes at this time Will benefit from ACEI or ARB to help with proteinuria - Follow up Plan Follow up with: Emanuel Harrison MD [Physician] - Vasu Lazo MD [Primary Care Provider] - Disposition: Home, Self-Care Prognosis: Good Rehab Potential: Good I certify that the patient requires SNF services: No Overall status at discharge: patient is progressing back to baseline Medical - DS: Qual - VTE Deep Vein Thrombosis/Pulmonary Embolism Present on Admission: No
== END 2017-02-21 15:00 | disposition home or self-care (01) | DRG 808 ==
LOC: ED 09:25 → ICU 12:40
PROVIDERS: ADMIT Internal Medicine; ATTEND Internal Medicine

== ENCOUNTER 2017-12-08 08:29 | Inpatient (IN) ==
[2017-12-08] MEDS ORDERED: DOXAZOSIN 1 MG TABLET PO SCH (09:00)
--- NOTE | 2017-12-08 09:05 | Emergency Department Note ---
General Adult HPI - General Chief complaint: Weakness Stated complaint: Weakness Time Seen by Provider: 12/08/17 08:55 Source: EMS Mode of arrival: EMS Limitations: no limitations - History of Present Illness HPI Narrative: This is a dialysis patient of Dr. Champagne who did have her last dialysis yesterday and since then has developed some black diarrhea and feels extremely weak. She feels weak to the point it is hard to walk. She did start Coumadin a month or so ago for a pulmonary embolus. Her stool is black and guaiac positive. She has no abdominal pain. No nausea or vomiting. She has slight but minimal shortness of breath and minimal cough. - Related Data Home Medications Medication Instructions Recorded Confirmed lovastatin 40 mg tablet 40 mg PO QHS tab 09/14/14 12/08/17 nifedipine ER 30 mg 30 mg PO QDAY tab 09/14/14 12/08/17 tablet,extended release omega-3 fatty acids-fish oil 684 2 cap PO BID cap 09/14/14 12/08/17 mg-1,200 mg capsule,delayed release Doxazosin Mesylate [Cardura] 1 mg PO BID 02/20/17 12/08/17 paroxetine 20 mg tablet 30 mg PO QDAY tab 06/22/17 12/08/17 omeprazole 20 mg capsule,delayed 20 mg PO QDAY cap 10/05/17 12/08/17 release propranolol 40 mg tablet 30 mg PO BID tab 11/25/17 12/08/17 Previous Rx's Medication Instructions Recorded gabapentin 100 mg capsule 100 mg PO QHS #30 cap 11/09/16 Acetaminophen [Tylenol] 650 mg PO Q6HP PRN tab 02/21/17 LORazepam [Ativan] 0.5 mg PO Q5H tab 02/21/17 calcium acetate 667 mg capsule 667 mg PO .TID with meals #270 cap 09/13/17 sodium bicarbonate 650 mg tablet 1,300 mg PO BID 30 Days #120 tab 10/05/17 clonidine HCl 0.1 mg tablet 0.05 mg PO TID tab 11/01/17 Warfarin [Coumadin] 5 mg PO DAILY #15 tab 11/22/17 furosemide 80 mg tablet 80 mg PO QDAY #30 tab 11/25/17 Allergies Allergy/AdvReac Type Severity Reaction Status Date / Time Tetracycline Allergy Severe Rash Verified 12/08/17 08:30 Hydralazine AdvReac Intermediate Other Verified 12/08/17 08:30 hydrocodone AdvReac Mild Other Verified 12/08/17 08:30 [From Lorcet (hydrocodone)] levofloxacin [From Levaquin] AdvReac Confusion Verified 12/08/17 08:30 Review of Systems All systems ED: reviewed and negative except as stated. 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) Nephrosclerosis (Chronic) Edema (Chronic) Renal malignant neoplasm (Suspected) Hyponatremia (Acute) Hypokalemia (Acute) Gastroenteritis (Acute) Chronic kidney disease, stage IV (severe) (Chronic) Hypertensive renal disease (Chronic) Diabetes mellitus (Chronic) Anemia (Chronic) Secondary hyperparathyroidism of renal origin (Chronic) Hypercalcemia (Chronic) Hyponatremia (Chronic) Chronic kidney disease, stage III (moderate) (Chronic) History of bladder surgery (Acute) Renal failure (Acute 06/20/14) Proteinuria (Chronic 06/20/14) Insulin resistance (Acute) Hypertension, essential (Chronic 06/20/14) Past Surgical History (Last Reviewed 11/25/17 @ 16:00 by Ekaterina Mijares MD) Hx of biopsy (Chronic) History of hysterectomy (Acute) History of cholecystectomy (Acute) History of surgery (Chronic 07/11/15) Family History (Last Reviewed 11/25/17 @ 16:00 by Ekaterina Mijares MD) Maternal Grandfather Chronic Kidney Disease Paternal Grandfather Type 1 diabetes mellitus Acute myocardial infarction Unknown Type 2 diabetes mellitus Father Malignant neoplasm Acute myocardial infarction Paternal Grandmother Cerebrovascular accident Mother Cerebrovascular accident Medical history: Reports: DM, hypertension, renal disease Surgical history ED: Reports: cholecystectomy, hysterectomy, other (bladder, recent kidney biopsy) - Social History smoking status: Current every day smoker Physical Exam Limitations: no limitations General appearance: alert Head: atraumatic Eye: Present: normal appearance ENT: normal exam, mucous membranes moist Neck: Present: normal inspection Chest: Present: normal inspection Respiratory: Present: normal lung sounds bilaterally Cardiovascular: Present: regular rate, normal rhythm, normal heart sounds Abdominal: Present: soft. Absent: distention, tenderness Rectal: Present: normal inspection, normal rectal tone, heme (+) stool, black stool. Absent: hemorrhoids, mass, tenderness Neurological: Present: alert Psychiatric: Present: normal affect, normal mood Skin: Present: warm, dry, intact Course Vital Signs Temperature 96.9 F L 12/08/17 08:30 Pulse Rate 74 12/08/17 08:30 Respiratory Rate 14 12/08/17 08:30 Blood Pressure 120/50 12/08/17 08:30 Pulse Oximetry (%) 100 12/08/17 08:30 Temperature 96.9 F L 12/08/17 08:30 Pulse Rate 80 12/08/17 10:47 Respiratory Rate 19 12/08/17 10:46 Blood Pressure 129/49 12/08/17 10:46 Pulse Oximetry (%) 94 12/08/17 10:47 Medical Decision Making - [facility] Narrative Medical decision making narrative: This patient has a GI bleed and will be admitted to the hospital by the hospitalist with Dr. Hernandez and Dr. Mijares consulting. We will reverse her INR with vitamin K and 2 units of FFP. She will be given Protonix IV 80 mg and a drip. Will type and cross 3 units of packed red cells for transfusion. - Lab Data Lab results reviewed: Yes I reviewed the patient's lab results. Result diagrams: 12/08/17 08:51 12/08/17 08:51 Lab Results 12/08/17 12/08/17 12/08/17 Range/Units 08:51 08:51 08:51 WBC 9.9 (4.5-11.0) K/mcL RBC 1.45 L (4.00-5.20) M/mcL Hgb 4.7 L* (12.0-15.0) g/dL Hct 14.0 L* (36.0-48.0) % MCV 96.3 (80.0-100.0) fL MCH 32.6 (26.0-34.0) pg MCHC 33.8 (31.0-36.0) g/dL RDW 13.3 (11.5-14.5) % Plt Count 257 (140-440) K/mcL MPV 8.2 (7.4-10.4) fL Gran % 75.8 (38.0-78.0) % Lymph % (Auto) 12.6 L (15.5-49.0) % [place] % (Auto) 8.8 (1.0-12.0) % Eos % (Auto) 1.7 (0.0-7.0) % Baso % (Auto) 1.1 (0.0-2.0) % Gran # 7.5 (1.8-8.0) K/mcL Lymph # (Auto) 1.2 L (1.5-4.8) K/mcL [place] # (Auto) 0.9 (0.1-0.9) K/mcL Eos # (Auto) 0.2 (0.0-0.7) K/mcL Baso # (Auto) 0.1 (0.0-0.3) K/mcL PT 40.8 H (11.9-14.5) sec INR 4.1 H (0.9-1.1) Sodium 136 (133-145) mmol/L Potassium 4.1 (3.3-5.1) mmol/L Chloride 97 (96-108) mmol/L Carbon Dioxide 22 (22-30) mmol/L Anion Gap 17.0 H (8-16) BUN 69 H (8-23) mg/dl Creatinine 3.1 H (0.6-1.1) mg/dl GFR Calculation 14 Glucose 126 H (70-105) mg/dL Calcium 8.4 L (8.6-10.4) mg/dl Total Bilirubin 0.3 (0.0-1.0) mg/dL AST 19 (0-37) U/l ALT 12 (0-40) U/l Alkaline Phosphatase 42 (39-117) U/L Total Protein 5.5 L (5.9-8.4) gm/dL Albumin 3.2 (3.2-5.2) gm/dL Globulin 2.3 (2.2-3.7) gm/dL Albumin/Globulin Ratio 1.4 (1.0-2.3) Disposition Pt seen by TAX [employer]M 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
[2017-12-08 09:49] LABS: ALT/SGPT 12 U/l (0-40); Albumin 3.2 gm/dL (3.2-5.2); Albumin/Globulin Ratio 1.4 (1.0-2.3); Alkaline Phosphatase 42 U/L (39-117); Blood Urea Nitrogen 69 mg/dl (8-23)
[2017-12-08 10:31] LABS: Basophils # (Auto) 0.1 K/mcL (0.0-0.3); Basophils % (Auto) 1.1 % (0.0-2.0); Eosinophils # (Auto) 0.2 K/mcL (0.0-0.7); Eosinophils % (Auto) 1.7 % (0.0-7.0); Granulocytes % (Auto) 75.8 % (38.0-78.0); Lymphocytes # (Auto) 1.2 K/mcL (1.5-4.8); Lymphocytes % (Auto) 12.6 % (15.5-49.0); Mean Cell Volume 96.3 fL (80.0-100.0); Mean Corpuscular HGB Conc 33.8 g/dL (31.0-36.0); Mean Corpuscular Hemoglobin 32.6 pg (26.0-34.0); Monocytes # (Auto) 0.9 K/mcL (0.1-0.9); Monocytes % (Auto) 8.8 % (1.0-12.0); Platelet Count 257 K/mcL (140-440); RBC 1.45 M/mcL (4.00-5.20); Red Cell Distribution Width 13.3 % (11.5-14.5)
[2017-12-08] MEDS ORDERED: 0.9 % SODIUM CHLORIDE 250 ML IV SCH ×2 (10:45→11:00)
[2017-12-08] MEDS ORDERED: PHYTONADIONE 10 MG in 0.9 % SODIUM CHLORIDE 50 ML IV ONE ×3 (10:47→12:15)
[2017-12-08] MEDS ORDERED: PANTOPRAZOLE 40 MG VIAL IV ONE (11:17)
[2017-12-08] MEDS ORDERED: PANTOPRAZOLE 80 MG in 0.9 % SODIUM CHLORIDE 100 ML IV SCH (11:30)
[2017-12-08] MEDS ORDERED: PHYTONADIONE 10 MG/ML AMPUL SQ ONE (12:04)
[2017-12-08 12:11] LABS: Appearance,Urine CLEAR; Bacteria,Urine FEW /hpf (0); Bilirubin,Urine NEG (NEG); Color,Urine STRAW; Glucose,Urine (UA) NEGATIVE (NEG); Leukocyte Esterase,Urine NEG /uL (NEG); Mucus,Urine FEW /hpf (0); Protein,Urine 100 mg/dL (NEG); Specific Gravity,Urine 1.009 (1.000-1.035); Urine Blood NEG mg/dL (<0.03); Urine RBC < 1 /hpf (0-1); Urine Squamous Epithelial Cell 1 /hpf (0-4); Urine Transitional Epi Cells < 1 /hpf (0-2); Urine WBC 1 /hpf (0-4); Urobilinogen,Urine NEG (NEG)
[2017-12-08] MEDS ORDERED: ACETAMINOPHEN 325 MG TABLET PO PRN (12:30)
[2017-12-08] MEDS ORDERED: CALCIUM ACETATE 667 MG PO SCH ×2 (12:30→13:08)
[2017-12-08] MEDS ORDERED: LORazepam 0.5 MG TABLET PO SCH (12:30)
--- NOTE | 2017-12-08 12:48 | Internal Med History&Physical ---
<ManidrissRamiro - Last Filed: 12/08/17 13:44> Medical - H&P: HPI Patient information: Note initiated : 12/08/17 at 12:36 pm Service Date, if different from initiated Date: [] Patient: Yessy Valderrama 77 y/o F admitted on for Weakness. Chief Complaint: ["I feel so weak I can barely get up"] History of present illness: Ms. Valderrama is a 77 year old F with a past medical history of smoking, probable pulmonary embolism diagnosed and treated less than a month ago, rheumatoid arthritis, chronic kidney disease, diverticulitis and gastric ulcers. Pt presented to the ED today for extreme weakness which began yesterday upon standing up after her dialysis appointment. Pt stated that when she stood up she felt dizzy, lightheaded and had a hard time walking. While at the dialysis center she was given iron and 2 electrolyte drinks which she said normally give her diarrhea. Pt had difficulty getting to her car but was able to get home and stayed in bed because she felt too weak to get up. Pt currently lives alone and is normally very active and tends a garden daily. Pt rated her weakness at a 9/ 10 without improvement since yesterday. Pt had also been having some diarrhea since yesterday after her dialysis appointment. Pt described diarrhea as dark and tarry. Pt labs were significant for a Hgb of 4.7. ED performed a guaiac test which was positive for occult blood. This clinical picture is consistent with an active upper GI bleed. Pt said she had had some changes in vision and dizziness in connection with feeling weak. Pt said she had had some palpitations this morning and had been thirsty. Pt has anxiety, joint pain, chronic cough due to smoking, but denied any dyspnea, nausea, vomiting, belly pain or chest pain. Pt also denied any use of NSAID medications. Pt will be admitted to the hospital in consult with GI due to probable GI bleed and critically low H&H which are likely precipitating her weakness. Review of systems: Positive as stated in HPI but was otherwise negative for the 13 systems reviewed. 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) Nephrosclerosis (Chronic) Edema (Chronic) Renal malignant neoplasm (Suspected) Hyponatremia (Acute) Hypokalemia (Acute) Gastroenteritis (Acute) Chronic kidney disease, stage IV (severe) (Chronic) Hypertensive renal disease (Chronic) Diabetes mellitus (Chronic) Anemia (Chronic) Secondary hyperparathyroidism of renal origin (Chronic) Hypercalcemia (Chronic) Hyponatremia (Chronic) Chronic kidney disease, stage III (moderate) (Chronic) History of bladder surgery (Acute) Renal failure (Acute 06/20/14) Proteinuria (Chronic 06/20/14) Insulin resistance (Acute) Hypertension, essential (Chronic 06/20/14) Anxiety Surgical history: Past Surgical History (Last Reviewed 11/25/17 @ 16:00 by Ekaterina Mijares MD) Hx of biopsy (Chronic) History of hysterectomy (Acute) History of cholecystectomy (Acute) History of surgery (Chronic 07/11/15) Surgical bladder sling implantation Pertinent family history: Family History (Last Reviewed 11/25/17 @ 16:00 by Ekaterina Mijares MD) Maternal Grandfather Chronic Kidney Disease Paternal Grandfather Type 1 diabetes mellitus Acute myocardial infarction Unknown Type 2 diabetes mellitus Father Malignant neoplasm Acute myocardial infarction Paternal Grandmother Cerebrovascular accident Mother Cerebrovascular accident Social history: Social History (Last Reviewed 11/25/17 @ 16:00 by Ekaterina Mijares MD) Pt smokes about .5 packs/day Social EtOH use , lives with daughter who is PICU nurse Functional capacity: independent ambulation Drug use: none Medical - H&P: Meds Home Medications Medication Instructions Recorded Confirmed Type lovastatin 40 mg tablet 40 mg PO QHS tab 09/14/14 12/08/17 History nifedipine ER 30 mg 30 mg PO QDAY tab 09/14/14 12/08/17 History tablet,extended release omega-3 fatty acids-fish oil 684 2 cap PO BID cap 09/14/14 12/08/17 History mg-1,200 mg capsule,delayed release gabapentin 100 mg capsule 100 mg PO QHS #30 cap 11/09/16 12/08/17 Rx Doxazosin Mesylate [Cardura] 1 mg PO BID 02/20/17 12/08/17 History Acetaminophen [Tylenol] 650 mg PO Q6HP PRN tab 02/21/17 12/08/17 Rx LORazepam [Ativan] 0.5 mg PO Q5H tab 02/21/17 12/08/17 Rx paroxetine 20 mg tablet 30 mg PO QDAY tab 06/22/17 12/08/17 History calcium acetate 667 mg capsule 667 mg PO .TID with meals #270 cap 09/13/1712/08 Rx omeprazole 20 mg capsule,delayed 20 mg PO QDAY cap 10/05/17 12/08/17 History release sodium bicarbonate 650 mg tablet 1,300 mg PO BID 30 Days #120 tab 10/05/1712/08 Rx clonidine HCl 0.1 mg tablet 0.05 mg PO TID tab 11/01/17 12/08/17 Rx Warfarin [Coumadin] 5 mg PO DAILY #15 tab 11/22/17 12/08/17 Rx furosemide 80 mg tablet 80 mg PO QDAY #30 tab 11/25/17 12/08/17 Rx propranolol 40 mg tablet 30 mg PO BID tab 11/25/17 12/08/17 History Allergies Allergy/AdvReac Type Severity Reaction Status Date / Time Tetracycline Allergy Severe Rash Verified 12/08/17 08:30 Hydralazine AdvReac Intermediate Other Verified 12/08/17 08:30 hydrocodone AdvReac Mild Other Verified 12/08/17 08:30 [From Lorcet (hydrocodone)] levofloxacin [From Levaquin] AdvReac Confusion Verified 12/08/17 08:30 Medical - H&P: Exam - Constitutional Vitals: Temp Pulse Resp BP Pulse Ox 96.9 F L 83 20 122/84 96 12/08/17 08:30 12/08/17 12:11 12/08/17 12:11 12/08/17 12:11 12/08/17 12:11 Exam: General: Mrs. Valderrama is a pleasant appearing 77yo F who appears pale and tired. She is A&Ox4 and appears in NO acute distress. - Head Head exam: Present: atraumatic, normal inspection, normocephalic - Eye Eye exam: Present: PERRL Pupils: Present: PERRL Additional comments: Pale conjunctiva - ENT ENT exam: Present: mucous membranes moist - Expanded ENT Exam Mouth exam: Present: normal external inspection Teeth exam: Present: normal external inspection - Neck Additional comments: Trachea is midline with no lymphadenopathy or thyromegaly. - Respiratory Respiratory exam: Present: normal respiratory exam, CTAB - Cardiovascular Cardiovascular exam: Present: RRR Additional comments: No murmurs were appreciated - GI/Abdominal Additional comments: Soft, NTND, no guarding or pain on light or deep palpation. Bowel sounds in all 4 quadrants. - Rectal Additional comments: Per ED: positive guaiac test for occult blood and in stool - Extremities Exam Additional comments: 2+ peripheral pulses in upper and lower extremities. - Neurological Exam Neurological exam: Present: alert, CN II-XII intact, oriented X3 Medical - H&P: Reslt - Labs CBC & Chem 7: 12/08/17 08:51 12/08/17 08:51 Labs: Short CBC 12/08/17 Range/Units 08:51 WBC 9.9 (4.5-11.0) K/mcL Hgb 4.7 L* (12.0-15.0) g/dL Hct 14.0 L* (36.0-48.0) % Plt Count 257 (140-440) K/mcL BMP 12/08/17 08:51 Sodium 136 Potassium 4.1 Chloride 97 Carbon Dioxide 22 BUN 69 H Creatinine 3.1 H Glucose 126 H Calcium 8.4 L Liver Function 12/08/17 Range/Units 08:51 Total Bilirubin 0.3 (0.0-1.0) mg/dL AST 19 (0-37) U/l ALT 12 (0-40) U/l Alkaline Phosphatase 42 (39-117) U/L Albumin 3.2 (3.2-5.2) gm/dL Urine 12/08/17 Range/Units 11:15 Urine Color Straw Urine Appearance Clear Urine pH 7.0 (5.0-9.0) Ur Specific [place] 1.009 (1.000-1.035) Urine Protein 100 A (NEG) mg/dL Urine Glucose (UA) Negative (NEG) mg/dL Medical - H&P: A/P - Narrative A/P Narrative: Assessment 1) GI bleed - likely upper GI due to history and clinical presentation 2) Anemia, acute - secondary to blood loss 3) Weakness/Fatigue secondary to anemia/blood loss 4) HTN 5) Anxiety 6) End stage renal disease - Followed by Dr. Mijares 7) Tobacco use disorder Plan 1) Transfuse with blood products, 3 units ordered, monitor fluid balance closely , give Lasix between units, follow with H&H. 1) Medical management with PPI 1) Consult GI for endoscopy 1) Coumadin held, follow up coags, DVT prophylaxis SCD while IR subtherapeutic 2) Same as 1 3) Same as 1 & 2. 4) Manage with current HTN Meds 5) Treat anxiety prn 6) Followed by Dr. Mijares 7) [place] Pt on smoking cessation <José Luis Mcdonnell - Last Filed: 12/08/17 14:07> Medical - H&P: HPI Patient information: Note initiated : 12/08/17 at 1:37 pm Service Date, if different from initiated Date: [] Patient: Yessy Valderrama 77 y/o F admitted on 12/08/17 for Weakness. Chief Complaint: [] History of present illness: Ms. Valderrama is a 77 year old F Medical - H&P: Exam - Constitutional Vitals: Temp Pulse Resp BP Pulse Ox 98.5 F 79 9 L 138/63 91 12/08/17 12:21 12/08/17 13:00 12/08/17 13:00 12/08/17 13:00 12/08/17 13:00 Medical - H&P: Reslt - Labs CBC & Chem 7: 12/08/17 08:51 12/08/17 08:51 Labs: Short CBC 12/08/17 Range/Units 08:51 WBC 9.9 (4.5-11.0) K/mcL Hgb 4.7 L* (12.0-15.0) g/dL Hct 14.0 L* (36.0-48.0) % Plt Count 257 (140-440) K/mcL BMP 12/08/17 08:51 Sodium 136 Potassium 4.1 Chloride 97 Carbon Dioxide 22 BUN 69 H Creatinine 3.1 H Glucose 126 H Calcium 8.4 L Liver Function 12/08/17 Range/Units 08:51 Total Bilirubin 0.3 (0.0-1.0) mg/dL AST 19 (0-37) U/l ALT 12 (0-40) U/l Alkaline Phosphatase 42 (39-117) U/L Albumin 3.2 (3.2-5.2) gm/dL Urine 12/08/17 Range/Units 11:15 Urine Color Straw Urine Appearance Clear Urine pH 7.0 (5.0-9.0) Ur Specific [place] 1.009 (1.000-1.035) Urine Protein 100 A (NEG) mg/dL Urine Glucose (UA) Negative (NEG) mg/dL Medical - H&P: A/P - Narrative A/P Narrative: ppx: SCD
[2017-12-08] MEDS ORDERED: LORazepam 0.5 MG TABLET PO ONE (13:49)
[2017-12-08] MEDS ORDERED: 0.9 % SODIUM CHLORIDE 10 ML SYRINGE IV SCH (14:00)
[2017-12-08] MEDS ORDERED: cloNIDine HCL 0.1 MG TABLET PO SCH (15:00)
[2017-12-08] MEDS ORDERED: FUROSEMIDE 20 MG/2 ML VIAL IV ONE (15:38)
[2017-12-08] MEDS: 0.9 % SODIUM CHLORIDE 10 ML SYRINGE IV SCH ×2 (15:39→21:40)
[2017-12-08] MEDS: cloNIDine HCL 0.1 MG TABLET PO SCH ×2 (15:40→21:05)
[2017-12-08] MEDS ORDERED: KETAMINE 10 MG/ML ML IV PRN (15:57)
[2017-12-08] MEDS ORDERED: PROPOFOL 200 MG/20 ML VIAL IV SCH (16:00)
[2017-12-08] MEDS ORDERED: MIDAZOLAM 2 MG/2 ML VIAL IV SCH (16:00)
--- NOTE | 2017-12-08 16:32 | Nephrology Consult Note ---
History of Present Illness - Reason for Consult Patient information: Note initiated : 12/08/17 at 4:28 pm Service Date, if different from initiated Date: [] Patient: Yessy Valderrama 77 y/o F admitted on 12/08/17 for Weakness. Chief Complaint: [] Consult date: 12/08/17 end stage renal disease Requesting physician: Jhonatan Muñoz - Chief Complaint weakness - History of Present Illness Patient is a 77 y/o pleasant white female with PMH of ESRD with non compliance to dialysis who is admitted with severe anemia, UGI bleed Patient has been feeling weak, progressive over days, called EMS today and was profoundly weak, on evaluation was found to have Hb of 4.7 and positive guaic stools Patient was seen in the ER last month and was started on coumadin for probable PE, VQ scan with intermediate probability She reported to our lens cementer yesterday that she has been taking high dose aspirin for aches and pain (which she refused today but did say she took some this morning) she has been non compliant to dialysis but did go yesterday where she received IV iron and aranesp for her anemia of CKD she denies worsening SOB, CP, no edema her INR was at 4.0 today she will get hospitalised, requested Dr Muñoz to call GI given her history and positive sandra history she will get RBC transfusion and ffp as well Review of Systems All systems PM: reviewed and no additional remarkable complaints except as stated (as in HPI) Past History Past medical history: dm TYPE 2 HTN ESRD from above 2 anemia of CKD secondary hyperparathyroidism COPD chronic arthritis, low back pain IBS Past surgical history: h/o hystrectomy, h/o cholecystectomy h/o AVF surgery Past family history: father had malignancy, CAD, mother had CVA Past social history: Lives alone smokes cig, drinks alcohol few times a week Medications and Allergies Home Medications Medication Instructions Recorded Confirmed Type lovastatin 40 mg tablet 40 mg PO QHS tab 09/14/14 12/08/17 History nifedipine ER 30 mg 30 mg PO QDAY tab 09/14/14 12/08/17 History tablet,extended release omega-3 fatty acids-fish oil 684 2 cap PO BID cap 09/14/14 12/08/17 History mg-1,200 mg capsule,delayed release gabapentin 100 mg capsule 100 mg PO QHS #30 cap 11/09/16 12/08/17 Rx Doxazosin Mesylate [Cardura] 1 mg PO BID 02/20/17 12/08/17 History Acetaminophen [Tylenol] 650 mg PO Q6HP PRN tab 02/21/17 12/08/17 Rx LORazepam [Ativan] 0.5 mg PO Q5H tab 02/21/17 12/08/17 Rx paroxetine 20 mg tablet 30 mg PO QDAY tab 06/22/17 12/08/17 History calcium acetate 667 mg capsule 667 mg PO .TID with meals #270 cap 09/13/1712/08 Rx omeprazole 20 mg capsule,delayed 20 mg PO QDAY cap 10/05/17 12/08/17 History release sodium bicarbonate 650 mg tablet 1,300 mg PO BID 30 Days #120 tab 10/05/1712/08 Rx clonidine HCl 0.1 mg tablet 0.05 mg PO TID tab 11/01/17 12/08/17 Rx Warfarin [Coumadin] 5 mg PO DAILY #15 tab 11/22/17 12/08/17 Rx furosemide 80 mg tablet 80 mg PO QDAY #30 tab 11/25/17 12/08/17 Rx propranolol 40 mg tablet 30 mg PO BID tab 11/25/17 12/08/17 History Allergies Allergy/AdvReac Type Severity Reaction Status Date / Time Tetracycline Allergy Mild Rash Verified 12/08/17 16:03 Hydralazine AdvReac Intermediate Tingling Verified 12/08/17 16:03 hydrocodone AdvReac Mild "makes me Verified 12/08/17 16:03 [From Lorcet (hydrocodone)] hyper" levofloxacin [From Levaquin] AdvReac Mild Confusion Verified 12/08/17 16:03 Exam - Vital Signs Vital signs: Temp Pulse Resp BP Pulse Ox 100.0 F H 81 16 95/52 92 12/08/17 15:31 12/08/17 16:08 12/08/17 16:08 12/08/17 16:04 12/08/17 16:08 - General Appearance General appearance: appears started age, chronically ill, frail EENT: mucous membranes moist Neck: no JVD Respiratory: clear Cardiology: no rub, no edema, regular rate, regular rhythm Gastrointestinal: no tenderness, no guarding Integumentary: warm and dry Neurologic: alert and oriented x3 Musculoskeletal: no erythema Psychiatric: mood/affect appropriate Results - Lab Results 12/08/17 08:51 12/08/17 08:51 Most recent lab results Calcium 8.4 mg/dl (8.6-10.4) L 12/08/17 08:51 Assessment and Plan (1) Anemia severe anemia from UGI bleed receiving prbc transfusion, EGD willbe done as well BP fluctuating ESRD: no acute indication for dialysis if issues with volume overload please inform and will dialyse elevated INR: will receive FFP for this Will request Dr Boyd to follow from tomorrow Status: Acute (2) Upper GI bleed Status: Acute
[2017-12-08] MEDS ORDERED: PROPOFOL 20 ML IV ONE (16:38)
[2017-12-08] MEDS ORDERED: PROPOFOL 0 ML IV ONE (16:38)
[2017-12-08] MEDS ORDERED: MIDAZOLAM 2 MG/2 ML VIAL ONE (16:39)
--- NOTE | 2017-12-08 16:54 | Event Note ---
discuss with patient regarding CTA to confirm or rule out PE in hopes to avoid further anticoagulation. CTA could be performed just prior to hemodialysis.
[2017-12-08] MEDS: LORazepam 0.5 MG TABLET PO SCH ×2 (18:22→22:59)
[2017-12-08] MEDS: CALCIUM ACETATE 667 MG CAPSULE PO SCH (18:23)
[2017-12-08] MEDS: ACETAMINOPHEN 325 MG TABLET PO PRN (20:58)
[2017-12-08] MEDS ORDERED: PROPRANOLOL 40 MG TABLET PO SCH (21:00)
[2017-12-08] MEDS ORDERED: LOVASTATIN 40 MG PO SCH (21:00)
[2017-12-08] MEDS ORDERED: DOXAZOSIN MESYLATE 1 MG PO SCH (21:00)
[2017-12-08] MEDS ORDERED: GABAPENTIN 100 MG CAPSULE PO SCH (21:00)
[2017-12-08] MEDS ORDERED: SODIUM BICARBONATE 650 MG TABLET PO SCH (21:00)
[2017-12-08] MEDS: GABAPENTIN 100 MG CAPSULE PO SCH (21:03)
[2017-12-08] MEDS: SODIUM BICARBONATE 650 MG TABLET PO SCH (21:03)
[2017-12-08] MEDS: SIMVASTATIN 20 MG TABLET PO SCH (21:03)
[2017-12-08] MEDS: DOXAZOSIN 1 MG TABLET PO SCH (21:09)
[2017-12-08] MEDS: PROPRANOLOL 40 MG TABLET PO SCH (21:15)
[2017-12-09] MEDS: LORazepam 0.5 MG TABLET PO SCH ×4 (03:52→19:09)
[2017-12-09] MEDS: 0.9 % SODIUM CHLORIDE 10 ML SYRINGE IV SCH ×5 (05:48→23:00)
[2017-12-09 06:10] LABS: ALT/SGPT 13 U/l (0-40); Albumin/Globulin Ratio 1.4 (1.0-2.3); Alkaline Phosphatase 42 U/L (39-117); Bilirubin,Direct 0.2 mg/dL (0.0-0.3); Blood Urea Nitrogen 70 mg/dl (8-23); Gamma Glutamyl Transpeptidase 20 U/L (5-36); Uric Acid 5.4 mg/dL (2.5-8.0)
[2017-12-09 07:14] LABS: Basophils # (Auto) 0.1 K/mcL (0.0-0.3); Basophils % (Auto) 1.3 % (0.0-2.0); Eosinophils # (Auto) 0.1 K/mcL (0.0-0.7); Eosinophils % (Auto) 1.9 % (0.0-7.0); Granulocytes % (Auto) 69.8 % (38.0-78.0); Lymphocytes # (Auto) 1.2 K/mcL (1.5-4.8); Lymphocytes % (Auto) 16.6 % (15.5-49.0); Mean Cell Volume 91.3 fL (80.0-100.0); Mean Corpuscular HGB Conc 31.8 g/dL (31.0-36.0); Mean Corpuscular Hemoglobin 29.1 pg (26.0-34.0); Monocytes # (Auto) 0.7 K/mcL (0.1-0.9); Monocytes % (Auto) 10.4 % (1.0-12.0); Platelet Count 207 K/mcL (140-440); Red Cell Distribution Width 16.8 % (11.5-14.5)
--- NOTE | 2017-12-09 07:23 | Internal Med Progress Note ---
Medical - PN: Subj Patient information: Note initiated : 12/09/17 at 7:14 am Service Date, if different from initiated Date: [] Patient: Yessy Valderrmaa a 77 y/o F admitted on 12/08/17 for Weakness. Chief Complaint: [] Interval history: Ms. Valderrama is a 77 year old F with a past medical history of smoking, probable pulmonary embolism diagnosed and treated less than a month ago, rheumatoid arthritis, chronic kidney disease, diverticulitis and gastric ulcers. Pt presented to the ED today for extreme weakness which began yesterday upon standing up after her dialysis appointment. Pt stated that when she stood up she felt dizzy, lightheaded and had a hard time walking. While at the dialysis center she was given iron and 2 electrolyte drinks which she said normally give her diarrhea. Pt had difficulty getting to her car but was able to get home and stayed in bed because she felt too weak to get up. Pt currently lives alone and is normally very active and tends a garden daily. Pt rated her weakness at a 9/ 10 without improvement since yesterday. Pt had also been having some diarrhea since yesterday after her dialysis appointment. Pt described diarrhea as dark and tarry. Pt labs were significant for a Hgb of 4.7. ED performed a guaiac test which was positive for occult blood. This clinical picture is consistent with an active upper GI bleed. 12/09 EGD last night found large diverticulum likely source but unable to find any active bleeding. No bleeding overnight. Occasional headache not unusual for her. Weakness. Review of Systems: denies fever/chills/nausea/vomiting/chest or abdominal pain/cough/dyspnea/ diarrhea. Otherwise see above. - Constitutional Vitals: Vital Signs Temp Pulse Resp BP Pulse Ox 98.6 F 72 15 137/94 93 12/09/17 04:03 12/09/17 06:05 12/09/17 02:32 12/09/17 04:03 12/09/17 06:05 Period Temp Pulse Resp BP Sys/Gallardo Pulse Ox Last 24 Hr 96.9 F-100.0 F 51-87 9-28 74-163/40-106 81-100 Intake and Output 12/08/17 12/09/17 12/09/17 21:59 05:59 13:59 Intake Total 868 / 868 925 / 925 Output Total 550 / 550 1150 / 1150 Balance 318 / 318 -225 / -225 Weight 56.518 kg 56.518 kg Intake & Output: Intake & Output 12/08/17 12/09/17 12/09/17 21:59 05:59 13:59 Intake Total 868 / 868 925 / 925 Output Total 550 / 550 1150 / 1150 Balance 318 / 318 -225 / -225 Weight 56.518 kg 56.518 kg Intake: Oral 600 / 600 Blood Product 868 / 868 325 / 325 Output: Urine Catheter Amount 550 / 550 1150 / 1150 Other: Urine Appearance Clear Clear Uretheral (Ybarra) Clear Clear Urine Color Pale Pale Uretheral (Ybarra) Pale Pale Urine Odor Normal Exam: General: Alert, Awake, No acute Distress HEENT: EOMI, CV: RRR, No murmurs, normal s1/s2 Pulm: Clear b/l, no wheezing/rhonchi/rales Abd: soft, nontender, +BS x4 Ext: no clubbing/cyanosis/edema Neuro: Alert, no focal deficits, moves all extremities Skin: warm/dry, pale Medical - PN: Obj Da - Labs CBC & Chem 7: 12/09/17 03:58 12/09/17 03:58 Labs: Abnormal Lab Results 12/09/17 12/08/17 12/08/17 03:58 11:15 08:51 RBC Hgb Hct Lymph % (Auto) Lymph # (Auto) PT 40.8 H INR 4.1 H Anion Gap BUN 70 H Creatinine 3.5 H Glucose Calcium Phosphorus 4.8 H Total Bilirubin 1.4 H Total Protein 5.1 L Albumin 3.0 L Globulin 2.1 L Triglycerides 176 H Urine Protein 100 A Urine Bacteria Few A 12/08/17 12/08/17 08:51 08:51 RBC 1.45 L Hgb 4.7 L* Hct 14.0 L* Lymph % (Auto) 12.6 L Lymph # (Auto) 1.2 L PT INR Anion Gap 17.0 H BUN 69 H Creatinine 3.1 H Glucose 126 H Calcium 8.4 L Phosphorus Total Bilirubin Total Protein 5.5 L Albumin Globulin Triglycerides Urine Protein Urine Bacteria Meds: Medications Acetaminophen (Tylenol) 650 mg PO Q6HP PRN PRN Reason: PAIN/FEVER > 101 Last Admin: 12/08/17 20:58 Dose: 650 mg Calcium Acetate (Phoslo) 667 mg PO TIDCC [facility] Last Admin: 12/08/17 18:23 Dose: Not Given Clonidine HCl (Catapres) 0.05 mg PO TID [facility] Last Admin: 12/08/17 21:05 Dose: 0.05 mg Doxazosin Mesylate (Cardura) 2 mg PO HS [facility] Last Admin: 12/08/17 21:09 Dose: 2 mg Doxazosin Mesylate (Cardura) 1 mg PO DAILY [facility] Furosemide (Lasix) 80 mg PO QDAY [facility] Gabapentin (Neurontin) 100 mg PO QHS [facility] Last Admin: 12/08/17 21:03 Dose: 100 mg Lorazepam (Ativan) 0.5 mg PO Q5H [facility] Last Admin: 12/09/17 03:52 Dose: 0.5 mg Nifedipine (Procardia Xl) 30 mg PO QDAY [facility] Pantoprazole Sodium (Protonix) 40 mg IV DAILY [facility] Paroxetine HCl (Paxil) 30 mg PO QDAY [facility] Pneumococcal Polyvalent Vaccine (Pneumovax 23) 0.5 ml IM .ONCE ONE Stop: 12/09/17 10:01 Propranolol HCl (Inderal) 30 mg PO BID [facility] Last Admin: 12/08/17 21:15 Dose: 30 mg Simvastatin (Zocor) 20 mg PO HS [facility] Last Admin: 12/08/17 21:03 Dose: 20 mg Sodium Bicarbonate (Sodium Bicarbonate) 1,300 mg PO BID [facility] Last Admin: 12/08/17 21:03 Dose: 1,300 mg Sodium Chloride (Saline Flush) 10 ml IV Q8 [facility] Last Admin: 12/09/17 05:48 Dose: 10 ml Medical - PN: A/P - Time Spent With Patient Total time spent is greater than 50% in coordination of care (as documented) at patient's floor/unit and/or counseling patient: - Narrative A/P Narrative: Assessment 1) GI bleed - likely upper GI due to history and clinical presentation 2) Anemia, acute - secondary to blood loss -7.6 <s/p 3 PRBC (12/08)< 4.7 3) Weakness/Fatigue secondary to anemia/blood loss 4) HTN 5) Anxiety 6) End stage renal disease - Followed by Dr. Mijares 7) Tobacco use disorder ) PE diagnosis recently via V/Q "intermediate" but CT noted to have chronic bronchitis findings Plan -monitor H&H -GI following -ppi -discuss with pt doing CTA just prior to HD to determine PE status - Coumadin held - Manage with current HTN Meds - Treat anxiety prn - Followed by Dr. Mijares - [place] Pt on smoking cessation -ppx: [facility] - PN: Qual - VTE Deep Vein Thrombosis/Pulmonary Embolism Present on Admission: No
--- NOTE | 2017-12-09 07:24 | Nephrology Progress Note ---
Subjective Patient information: Note initiated : 12/09/17 at 7:22 am Yessy Valderrama is a 77-year-old female admitted on 12/08/17. Chief Complaint: Weakness Principal diagnosis: End stage renal disease Interval history: Last hemodialysis on 12/07/17 Pertinent ROS: No melena overnight No shortness of breath No edema Ybarra catheter Pale skin No confusion Objective - Vital Signs Vital signs: Vital Signs Temp Pulse Pulse Resp BP BP Pulse Ox 12/09/17 06:05 72 93 12/09/17 04:03 98.6 F 76 137/94 93 12/09/17 02:56 74 141/70 95 12/09/17 02:32 74 15 133/106 97 12/09/17 01:04 77 16 145/62 93 12/09/17 00:20 78 18 126/78 95 12/09/17 00:00 96 12/08/17 22:04 80 18 132/65 94 12/08/17 21:53 80 94 12/08/17 21:45 83 123/66 95 12/08/17 21:19 85 120/58 92 12/08/17 20:58 85 16 125/94 93 12/08/17 20:16 82 24 H 131/63 94 12/08/17 20:01 98.9 F 81 20 131/61 93 12/08/17 19:46 81 17 120/64 94 12/08/17 19:32 81 22 132/55 96 12/08/17 19:16 81 18 134/57 95 12/08/17 19:06 80 93 12/08/17 19:01 84 19 132/70 96 12/08/17 18:53 83 23 H 93 12/08/17 18:46 79 20 121/61 93 12/08/17 18:31 77 22 118/65 93 12/08/17 18:16 78 24 H 90/68 95 12/08/17 18:01 14 114/73 12/08/17 17:46 22 120/83 12/08/17 17:35 87 18 112/65 97 12/08/17 17:26 100.0 F H 80 20 112/65 96 12/08/17 17:20 77 20 90/58 100 12/08/17 17:05 81 20 119/60 92 12/08/17 17:01 80 20 122/56 93 12/08/17 16:52 80 23 H 128/65 94 12/08/17 16:51 83 13 163/59 94 12/08/17 16:49 83 131/66 93 12/08/17 16:46 80 22 101/51 92 18 16:31 105/82 12/08/17 16:16 80 22 103/55 91 12/08/17 16:08 81 16 92 12/08/17 16:04 19 95/52 12/08/17 16:01 17 74/63 12/08/17 15:53 86 20 119/60 99 12/08/17 15:46 51 L 20 80/70 81 L 12/08/17 15:31 100.0 F H 80 20 110/52 94 12/08/17 15:16 80 19 107/57 96 12/08/17 15:02 81 89/42 94 12/08/17 15:01 83 80/52 93 12/08/17 14:47 81 28 H 91 12/08/17 14:31 83 13 109/57 90 12/08/17 14:16 81 25 H 106/49 95 12/08/17 14:01 87 15 91/73 96 12/08/17 13:46 80 18 103/61 95 12/08/17 13:31 81 22 111/63 93 12/08/17 13:24 81 20 98/53 97 12/08/17 13:10 98.5 F 84 17 98/53 92 12/08/17 13:05 98.8 F 81 20 98/53 94 12/08/17 13:01 99.5 F H 80 11 L 89/44 90 12/08/17 13:00 79 9 L 138/63 91 12/08/17 12:55 79 9 L 138/63 91 18 12:31 80 138/63 92 12/08/17 12:16 83 18 142/57 94 12/08/17 12:11 83 20 122/84 96 12/08/17 12:01 81 18 122/84 95 12/08/17 11:46 79 14 137/94 95 12/08/17 11:31 77 17 136/64 97 12/08/17 11:18 79 17 134/52 95 12/08/17 11:16 81 15 134/52 95 12/08/17 11:12 81 18 145/49 95 12/08/17 10:47 80 94 12/08/17 10:46 76 19 129/49 92 12/08/17 10:31 76 21 103/88 90 12/08/17 10:16 81 21 131/49 93 12/08/17 10:01 79 24 H 129/44 90 12/08/17 09:47 19 119/40 12/08/17 09:31 74 17 133/43 95 12/08/17 09:17 73 22 121/44 94 12/08/17 09:01 18 141/41 12/08/17 08:46 22 137/48 12/08/17 08:42 21 12/08/17 08:41 23 H 120/50 12/08/17 08:30 96.9 F L 74 14 120/50 100 Intake and Output 12/08/17 12/09/17 12/09/17 21:59 05:59 13:59 Intake Total 868 / 868 925 / 925 Output Total 550 / 550 1150 / 1150 Balance 318 / 318 -225 / -225 Intake: Oral 600 / 600 Blood Product 868 / 868 325 / 325 Output: Urine Catheter Amount 550 / 550 1150 / 1150 Other: Urine Appearance Clear Clear Uretheral (Ybarra) Clear Clear Urine Color Pale Pale Uretheral (Ybarra) Pale Pale Urine Odor Normal Weight 124 lb 9.6 oz 124 lb 9.6 oz Intake & Output: Intake & Output 12/08/17 12/09/17 12/09/17 21:59 05:59 13:59 Intake Total 868 / 868 925 / 925 Output Total 550 / 550 1150 / 1150 Balance 318 / 318 -225 / -225 Weight 124 lb 9.6 oz 124 lb 9.6 oz Intake: Oral 600 / 600 Blood Product 868 / 868 325 / 325 Output: Urine Catheter Amount 550 / 550 1150 / 1150 Other: Urine Appearance Clear Clear Uretheral (Ybarra) Clear Clear Urine Color Pale Pale Uretheral (Ybarra) Pale Pale Urine Odor Normal - General Appearance General appearance: appears started age, fatigue EENT: mucous membranes moist Neck: supple Respiratory: clear Cardiology: no edema, regular rate, regular rhythm Gastrointestinal: no tenderness Integumentary: no rash, warm and dry, ecchymotic Neurologic: no focal deficit, alert and oriented x3 Musculoskeletal: no deformities Psychiatric: mood/affect appropriate, cooperative - Lab 12/09/17 03:58 12/09/17 03:58 Most recent lab results Calcium 8.6 mg/dl (8.6-10.4) 12/09/17 03:58 Phosphorus 4.8 mg/dL (2.7-4.5) H 12/09/17 03:58 Magnesium 1.7 mg/dL (1.6-2.5) 12/09/17 03:58 Assessment and Plan (1) ESRD (end stage renal disease) on dialysis Yessy Valderrama is a 77-year-old female with end-stage renal disease on chronic hemodialysis (through right arm AV fistula, at [facility], on Wednesday and Saturdays, followed by Dr. Mijares), secondary hyperparathyroidism of renal origin, chronic anemia due to kidney disease, admitted on 12/08/17. Plan: Next hemodialysis tomorrow Status: Chronic Priority: Medium (2) Acute on chronic blood loss anemia Acute blood loss anemia from gastrointestinal bleeding associated with Coumadin anticoagulation on chronic anemia due to renal failure Received 3 units PRBC and 2 units FFP Plan: Keep Hb >7 Status: Acute Priority: Medium
[2017-12-09] MEDS: CALCIUM ACETATE 667 MG CAPSULE PO SCH ×3 (08:11→17:21)
[2017-12-09] MEDS: PANTOPRAZOLE 40 MG VIAL IV SCH (08:14)
[2017-12-09] MEDS ORDERED: FUROSEMIDE 80 MG TABLET PO SCH (09:00)
[2017-12-09] MEDS ORDERED: PARoxetine 20 MG TABLET PO SCH (09:00)
[2017-12-09] MEDS ORDERED: NIFEdipine 30 MG TAB.XL.24H PO SCH (09:00)
[2017-12-09] MEDS: cloNIDine HCL 0.1 MG TABLET PO SCH ×3 (09:13→20:30)
[2017-12-09] MEDS: ACETAMINOPHEN 325 MG TABLET PO PRN ×2 (09:14→19:19)
[2017-12-09] MEDS: DOXAZOSIN 1 MG TABLET PO SCH ×2 (09:15→20:39)
[2017-12-09] MEDS: NIFEdipine 30 MG TAB.XL.24H PO SCH (09:23)
[2017-12-09] MEDS: FUROSEMIDE 80 MG TABLET PO SCH (09:23)
[2017-12-09] MEDS: PARoxetine 20 MG TABLET PO SCH (09:23)
[2017-12-09] MEDS: SODIUM BICARBONATE 650 MG TABLET PO SCH ×2 (09:23→20:30)
[2017-12-09] MEDS: PROPRANOLOL 40 MG TABLET PO SCH ×2 (09:24→20:29)
[2017-12-09] MEDS ORDERED: methylPREDNISolone SOD SUCC 125 MG/2 ML VIAL IV ONE (09:54)
--- NOTE | 2017-12-09 09:56 | Operative Note ---
DATE OF OPERATION: 12/08/2017 PROCEDURE: Esophagogastroduodenoscopy. [employer]IST[employer] MANAGER: Sunday Mora MD ANESTHETIC USED: Propofol 110 mg IV, Versed 1 mg IV. HISTORY OF PRESENT ILLNESS: A 77-year-old white female with end-stage renal disease who has been on dialysis for more than a year now. The nephrology note is acknowledged in which patient is described as being somewhat noncompliant with her treatment. In any event, about a month ago she was thought to have had a pulmonary embolism based on an intermediate probability VQ scan. I believe there was no other corroborating evidence of the pulmonary embolism but in any event, the patient was started on warfarin therapy at that time. I see that she has baseline hemoglobin of about 9.5. She did go to dialysis yesterday and was very weak. She received intravenous iron and Aranesp at dialysis. However, she called the ambulance service and was brought in from home today because she had developed such severe weakness. Her hemoglobin was found to be only 4.7 today with INR 4. She denies abdominal pain. In the last day or two she has had black tarry stool. She tells me that she had an ulcer maybe a year or so ago, but does not remember having any obvious bleeding with that or this current sense of severe weakness. I believe she has had her prior endoscopy by Dr. Cooper. Again, she has no abdominal pain, no hematemesis, and no bright red blood per rectum. The patient is currently receiving the second of three planned packed red blood cell unit transfusion. She received 10 mg of vitamin K in the emergency room several hours ago, probably late morning. PREOPERATIVE DIAGNOSIS: POSTOPERATIVE DIAGNOSIS: A very large duodenal diverticulum with some altered blood around it, but no active bleeding identified, otherwise normal EGD. INFORMED CONSENT: Prior to the procedure the patient provided her own informed consent. The patient was evaluated and considered medically fit for endoscopy. DESCRIPTION OF PROCEDURE: With the patient in the left lateral decubitus position in the Intensive Care Unit, a gastroscope was advanced via the mouth to the esophagus under direct vision. The esophagus appears normal throughout its length without ulcer, stricture, mass, hiatal hernia, or varices. No Veronica-Kay tear. The stomach was endoscopically normal including retroflexed view. No arteriovenous malformations were seen. The pylorus is patent. The duodenal bulb appears normal. However, as I advanced the scope into the second and third portion of the duodenum, there are stringy strands of altered blood. The blood is actually in small quantity. It is mostly mixed with mucus and appears dark red and altered. There were no large clots. I irrigated the duodenum as best I could and found no active bleeding. At the second portion of the duodenum there is a massive diverticulum. This is perhaps 4 cm in diameter. It is a bit difficult access at first. When I did manage to advance the scope into the lumen of this large diverticulum there was more of the blood bloody mucus and strands of blood. I irrigated the lumen of the diverticulum completely and found no active bleeding from the site. It is not clear whether the blood originated from the diverticulum or whether the blood collected in the diverticulum. After several minutes of observation of the duodenum to the third portion and irrigation, I was satisfied that there is no further active bleeding. I did not see any definite arteriovenous malformations to the extent of the exam. COMPLICATIONS: None immediate. RECOMMENDATIONS AND FOLLOWUP: It is okay with GI if the proton pump inhibitor drip is discontinued in favor of once daily dosing. I will advance to full liquid diet, observe for further bleeding. Regarding the anticoagulation with Coumadin, perhaps a more definitive diagnosis of pulmonary embolism can be obtained before making a decision on further anticoagulation. We will have to review Dr. Pike's records regarding prior colonoscopies. JCM:kh Job ID: [id number] Doc ID: [id number] Sunday Mijares MD
[2017-12-09] MEDS ORDERED: PNEUMOCOCCAL 23-VAL P-SAC VAC 0.5 ML VIAL IM ONE (10:00)
[2017-12-09] MEDS: SIMVASTATIN 20 MG TABLET PO SCH (20:30)
[2017-12-09] MEDS: GABAPENTIN 100 MG CAPSULE PO SCH (20:30)
[2017-12-10] MEDS: LORazepam 0.5 MG TABLET PO SCH ×4 (01:11→14:58)
[2017-12-10] MEDS: ACETAMINOPHEN 325 MG TABLET PO PRN ×2 (04:15→10:54)
[2017-12-10] MEDS: 0.9 % SODIUM CHLORIDE 10 ML SYRINGE IV SCH (05:37)
[2017-12-10 05:44] LABS: ALT/SGPT 14 U/l (0-40); Albumin 3.3 gm/dL (3.2-5.2); Albumin/Globulin Ratio 1.4 (1.0-2.3); Alkaline Phosphatase 46 U/L (39-117); Bilirubin,Direct < 0.2 mg/dL (0.0-0.3); Blood Urea Nitrogen 69 mg/dl (8-23); Gamma Glutamyl Transpeptidase 22 U/L (5-36); Uric Acid 7.1 mg/dL (2.5-8.0)
--- NOTE | 2017-12-10 07:05 | Nephrology Progress Note ---
Subjective Patient information: Note initiated : 12/10/17 at 7:03 am Yessy Valderrama is a 77-year-old female admitted on 12/08/17 Chief Complaint: Weakness Principal diagnosis: End stage renal disease Interval history: Last hemodialysis on 12/07/17 Pertinent ROS: No melena overnight No shortness of breath No edema Ybarra catheter Pale skin No confusion Objective - Vital Signs Vital signs: Vital Signs Temp Pulse Resp BP Pulse Ox 12/10/17 06:11 67 15 97 12/10/17 06:01 65 16 146/80 96 12/10/17 05:07 17 12/10/17 05:01 71 18 145/67 98 12/10/17 04:07 66 20 98 12/10/17 04:01 98.8 F 19 159/74 98 12/10/17 03:12 66 13 100 12/10/17 03:03 66 16 151/74 100 12/10/17 02:02 67 17 131/67 99 12/10/17 01:15 72 18 100 12/10/17 01:01 71 17 153/78 100 12/10/17 00:01 99.1 F H 68 18 133/86 100 12/09/17 23:29 68 24 H 99 12/09/17 23:00 70 23 H 141/70 100 12/09/17 22:54 68 14 99 12/09/17 22:01 18 131/82 99 12/09/17 21:57 68 29 H 97 12/09/17 20:10 73 17 153/76 98 12/09/17 20:01 73 16 98 12/09/17 20:00 98.5 F 12/09/17 19:27 74 21 99 12/09/17 19:13 77 18 137/76 97 12/09/17 18:13 77 17 150/76 97 12/09/17 17:02 80 20 167/48 95 12/09/17 16:01 98.4 F 20 146/65 95 12/09/17 15:02 76 21 150/56 97 12/09/17 14:20 77 20 134/115 96 12/09/17 13:02 23 H 107/88 95 12/09/17 13:00 95 12/09/17 12:02 99.1 F H 73 21 152/54 93 12/09/17 11:01 67 20 142/53 94 12/09/17 10:01 69 18 150/57 95 12/09/17 09:02 73 18 164/57 91 12/09/17 08:46 18 167/58 93 12/09/17 08:42 74 91 Intake and Output 12/09/17 12/10/17 12/10/17 21:59 05:59 13:59 Intake Total 575 / 575 Output Total 698 / 698 490 / 490 40 / 40 Balance -123 / -123 -490 / -490 -40 / -40 Intake: Oral 575 / 575 Output: Urine Catheter Amount 548 / 548 490 / 490 40 / 40 Stool 150 / 150 Other: Meal Dinner Percent of Meal Consumed 100% Urine Appearance Clear Clear Clear Uretheral (Ybarra) Clear Urine Color Bright Yellow Pale Pale Uretheral (Ybarra) Pale Stool Color Black Stool Consistency Liquid Weight 123 lb 3.2 oz Intake & Output: Intake & Output 12/09/17 12/10/17 12/10/17 21:59 05:59 13:59 Intake Total 575 / 575 Output Total 698 / 698 490 / 490 40 / 40 Balance -123 / -123 -490 / -490 -40 / -40 Weight 123 lb 3.2 oz Intake: Oral 575 / 575 Output: Urine Catheter Amount 548 / 548 490 / 490 40 / 40 Stool 150 / 150 Other: Meal Dinner Percent of Meal Consumed 100% Urine Appearance Clear Clear Clear Uretheral (Ybarra) Clear Urine Color Bright Yellow Pale Pale Uretheral (Ybarra) Pale Stool Color Black Stool Consistency Liquid - General Appearance General appearance: chronically ill, fatigue EENT: mucous membranes moist Neck: supple Respiratory: clear Cardiology: no edema Gastrointestinal: no tenderness Integumentary: ecchymotic Neurologic: no focal deficit, alert and oriented x3 Musculoskeletal: no deformities Psychiatric: mood/affect appropriate, cooperative - Lab 12/10/17 03:53 12/10/17 03:53 Most recent lab results Calcium 9.5 mg/dl (8.6-10.4) 12/10/17 03:53 Phosphorus 5.2 mg/dL (2.7-4.5) H 12/10/17 03:53 Magnesium 1.6 mg/dL (1.6-2.5) 12/10/17 03:53 Assessment and Plan (1) ESRD (end stage renal disease) on dialysis Yessy Valderrama is a 77-year-old female with end-stage renal disease on chronic hemodialysis (through right arm AV fistula, at [facility], on Wednesday and Saturdays, followed by Dr. Mijares), secondary hyperparathyroidism of renal origin, chronic anemia due to kidney disease, admitted on 12/08/17. Plan: Hemodialysis today with Revaclear 400 dialyzer for 2.5 hours, QB/QD 400/ 800, dialysate (Potassium 3, Bicarbonate 33, Calcium 2.5, Sodium 140), UF None, Heparin None. The patient seen and evaluated during dialysis at 11:10. Status: Chronic Priority: Medium (2) Acute on chronic blood loss anemia Acute blood loss anemia from gastrointestinal bleeding associated with Coumadin anticoagulation on chronic anemia due to renal failure Received 3 units PRBC and 2 units FFP Plan: Keep Hb >7 Status: Acute Priority: Medium
--- NOTE | 2017-12-10 07:19 | Internal Med Progress Note ---
Medical - PN: Subj Patient information: Note initiated : 12/10/17 at 7:17 am Service Date, if different from initiated Date: [] Patient: Yessy Valderrama a 77 y/o F admitted on 12/08/17 for Weakness. Chief Complaint: [] Interval history: Ms. Valderrama is a 77 year old F with a past medical history of smoking, probable pulmonary embolism diagnosed and treated less than a month ago, rheumatoid arthritis, chronic kidney disease, diverticulitis and gastric ulcers. Pt presented to the ED today for extreme weakness which began yesterday upon standing up after her dialysis appointment. Pt stated that when she stood up she felt dizzy, lightheaded and had a hard time walking. While at the dialysis center she was given iron and 2 electrolyte drinks which she said normally give her diarrhea. Pt had difficulty getting to her car but was able to get home and stayed in bed because she felt too weak to get up. Pt currently lives alone and is normally very active and tends a garden daily. Pt rated her weakness at a 9/ 10 without improvement since yesterday. Pt had also been having some diarrhea since yesterday after her dialysis appointment. Pt described diarrhea as dark and tarry. Pt labs were significant for a Hgb of 4.7. ED performed a guaiac test which was positive for occult blood. This clinical picture is consistent with an active upper GI bleed. 12/09 EGD last night found large diverticulum likely source but unable to find any active bleeding. No bleeding overnight. Occasional headache not unusual for her. Weakness. 12/10 - Constitutional Vitals: Vital Signs Temp Pulse Resp BP Pulse Ox 98.8 F 67 15 146/80 97 12/10/17 04:01 12/10/17 06:11 12/10/17 06:11 12/10/17 06:01 12/10/17 06:11 Period Temp Pulse Resp BP Sys/Gallardo Pulse Ox Last 24 Hr 98.4 F-99.1 F 65-80 13-29 107-167/48-115 91-100 Intake and Output 12/09/17 12/10/17 12/10/17 21:59 05:59 13:59 Intake Total 575 / 575 Output Total 698 / 698 490 / 490 40 / 40 Balance -123 / -123 -490 / -490 -40 / -40 Weight 55.883 kg Intake & Output: Intake & Output 12/09/17 12/10/17 12/10/17 21:59 05:59 13:59 Intake Total 575 / 575 Output Total 698 / 698 490 / 490 40 / 40 Balance -123 / -123 -490 / -490 -40 / -40 Weight 55.883 kg Intake: Oral 575 / 575 Output: Urine Catheter Amount 548 / 548 490 / 490 40 / 40 Stool 150 / 150 Other: Meal Dinner Percent of Meal Consumed 100% Urine Appearance Clear Clear Clear Uretheral (Ybarra) Clear Urine Color Bright Yellow Pale Pale Uretheral (Ybarra) Pale Stool Color Black Stool Consistency Liquid Exam: General: Alert, Awake, No acute Distress HEENT: EOMI, CV: RRR, No murmurs, normal s1/s2 Pulm: Clear b/l, no wheezing/rhonchi/rales Abd: soft, nontender, +BS x4 Ext: no clubbing/cyanosis/edema Neuro: Alert, no focal deficits, moves all extremities Skin: warm/dry, pale Medical - PN: Obj Da - Labs CBC & Chem 7: 12/10/17 03:53 12/10/17 03:53 Labs: Abnormal Lab Results 12/10/17 12/10/17 12/09/17 03:53 03:53 03:58 RBC Hgb 8.8 L Hct 23.0 L RDW Lymph % (Auto) Lymph # (Auto) PT INR Anion Gap BUN 69 H 70 H Creatinine 3.9 H 3.5 H Glucose 126 H Calcium Phosphorus 5.2 H 4.8 H Total Bilirubin 1.4 H Total Protein 5.7 L 5.1 L Albumin 3.0 L Globulin 2.1 L Triglycerides 176 H Urine Protein Urine Bacteria 12/09/17 12/08/17 12/08/17 03:58 11:15 08:51 RBC 2.60 L Hgb 7.6 L Hct 23.8 L RDW 16.8 H Lymph % (Auto) Lymph # (Auto) 1.2 L PT 40.8 H INR 4.1 H Anion Gap BUN Creatinine Glucose Calcium Phosphorus Total Bilirubin Total Protein Albumin Globulin Triglycerides Urine Protein 100 A Urine Bacteria Few A 12/08/17 12/08/17 08:51 08:51 RBC 1.45 L Hgb 4.7 L* Hct 14.0 L* RDW Lymph % (Auto) 12.6 L Lymph # (Auto) 1.2 L PT INR Anion Gap 17.0 H BUN 69 H Creatinine 3.1 H Glucose 126 H Calcium 8.4 L Phosphorus Total Bilirubin Total Protein 5.5 L Albumin Globulin Triglycerides Urine Protein Urine Bacteria Meds: Medications Acetaminophen (Tylenol) 650 mg PO Q6HP PRN PRN Reason: PAIN/FEVER > 101 Last Admin: 12/10/17 04:15 Dose: 650 mg Calcium Acetate (Phoslo) 667 mg PO TIDCC [facility] Last Admin: 12/09/17 17:21 Dose: 667 mg Clonidine HCl (Catapres) 0.05 mg PO TID [facility] Last Admin: 12/09/17 20:30 Dose: 0.05 mg Doxazosin Mesylate (Cardura) 2 mg PO HS [facility] Last Admin: 12/09/17 20:39 Dose: 2 mg Doxazosin Mesylate (Cardura) 1 mg PO DAILY [facility] Last Admin: 12/09/17 09:15 Dose: 1 mg Furosemide (Lasix) 80 mg PO QDAY [facility] Last Admin: 12/09/17 09:23 Dose: 80 mg Gabapentin (Neurontin) 100 mg PO QHS [facility] Last Admin: 12/09/17 20:30 Dose: 100 mg Lisinopril (Zestril) 10 mg PO DAILY [facility] Lorazepam (Ativan) 0.5 mg PO Q5H [facility] Last Admin: 12/10/17 04:45 Dose: 0.5 mg Nifedipine (Procardia Xl) 30 mg PO QDAY [facility] Last Admin: 12/09/17 09:23 Dose: 30 mg Pantoprazole Sodium (Protonix) 40 mg IV DAILY [facility] Last Admin: 12/09/17 08:14 Dose: 40 mg Paroxetine HCl (Paxil) 30 mg PO QDAY [facility] Last Admin: 12/09/17 09:23 Dose: 30 mg Propranolol HCl (Inderal) 30 mg PO BID [facility] Last Admin: 12/09/17 20:29 Dose: 30 mg Simvastatin (Zocor) 20 mg PO HS [facility] Last Admin: 12/09/17 20:30 Dose: 20 mg Sodium Bicarbonate (Sodium Bicarbonate) 1,300 mg PO BID [facility] Last Admin: 12/09/17 20:30 Dose: 1,300 mg Sodium Chloride (Saline Flush) 10 ml IV Q8 [facility] Last Admin: 12/10/17 05:37 Dose: 10 ml Medical - PN: A/P - Time Spent With Patient Total time spent is greater than 50% in coordination of care (as documented) at patient's floor/unit and/or counseling patient: - Narrative A/P Narrative: Assessment 1) GI bleed: EGD with large duodenal diverticulum likely source 2) Anemia, acute - secondary to blood loss -8.8<7.6 <s/p 3 PRBC (12/08)< 4.7 3) Weakness/Fatigue secondary to anemia/blood loss 4) HTN 5) Anxiety 6) End stage renal disease - Followed by Dr. Mijares 7) Tobacco use disorder ) PE diagnosis recently via V/Q "intermediate" but CT noted to have chronic bronchitis findings Plan -monitor H&H -GI following -ppi -CTA just prior to HD today to determine PE status - Coumadin held - Manage with current HTN Meds - Treat anxiety prn - Nephro following - [place] Pt on smoking cessation -pt/ot -ppx: [facility] Medical - PN: Qual - VTE Deep Vein Thrombosis/Pulmonary Embolism Present on Admission: No
[2017-12-10] MEDS ORDERED: IOPAMIDOL 100 ML BOTTLE IV ONE (08:13)
--- NOTE | 2017-12-10 08:30 | Cat Scan Report ---
CLINICAL INFORMATION: Weakness COMPARISON: Previous chest CT scan dated 11/22/2017. Abdominal CT scan dated 11/17/2017. TECHNIQUE: Axial images obtained through the chest. 65 mL intravenous contrast was administered, and scanning was performed during pulmonary arterial phase. Sagittally and coronally reformatted images were obtained. MIP reformatted images. FINDINGS: Very small left pleural effusion. This is decreased since previous examination. There is minimal dependent atelectasis. Lungs are otherwise negative. No parenchymal consolidation. No evidence for pneumonia. No pulmonary parenchymal mass. There is no emphysema or honeycombing. No bronchiectasis. No pulmonary infarction Main pulmonary artery, right pulmonary artery, left pulmonary artery are negative. No intraluminal filling defects. No lobar, segmental, or subsegmental abnormalities. Examination is negative for pulmonary embolism. Thoracic aorta is negative. There is calcification. No aneurysmal dilatation. There is extensive coronary artery calcification. No pericardial effusion. No mediastinal or hilar adenopathy. No axillary adenopathy. Upper abdomen is abnormal. There are multiple low-density lesions in the liver. These were evaluated on 11/17/2017) are unchanged. These are felt to be hepatic cysts. No thoracic compression fracture. No lytic lesion. Sternum and ribs are negative. IMPRESSION: 1. Negative pulmonary CTA 2. There is small left pleural effusion, decreased 3. Extensive atherosclerotic calcifications including coronary artery calcification The exam was performed using radiation dose optimization techniques including, but not limited to, automated exposure control, adjustment of the mA and/or kV according to patient size and use of iterative reconstruction technique. Interpreted and Authenticated by: Sunday Moulton 12/10/17
[2017-12-10] MEDS: CALCIUM ACETATE 667 MG CAPSULE PO SCH ×2 (08:52→14:58)
[2017-12-10] MEDS ORDERED: LISINOPRIL 10 MG TABLET PO SCH (09:00)
[2017-12-10] MEDS ORDERED: ENALAPRIL 10 MG PO SCH (09:00)
[2017-12-10] MEDS ORDERED: FISH OIL 1,000 MG CAPSULE PO SCH (09:00)
[2017-12-10] MEDS ORDERED: PROPRANOLOL 40 MG TABLET PO SCH (09:00)
[2017-12-10] MEDS: DOXAZOSIN 1 MG TABLET PO SCH (09:04)
[2017-12-10] MEDS: cloNIDine HCL 0.1 MG TABLET PO SCH ×2 (09:04→14:59)
--- NOTE | 2017-12-10 09:04 | Internal Med Progress Note ---
Medical - PN: Subj Patient information: Note initiated : 12/10/17 at 9:02 am Service Date, if different from initiated Date: [] Patient: Yessy Valderrama a 77 y/o F admitted on 12/08/17 for Weakness. Chief Complaint: [] Interval history: Ms. Valderrama is a 77 year old F with a past medical history of smoking, probable pulmonary embolism diagnosed and treated less than a month ago, rheumatoid arthritis, chronic kidney disease, diverticulitis and gastric ulcers. Pt presented to the ED today for extreme weakness which began yesterday upon standing up after her dialysis appointment. Pt stated that when she stood up she felt dizzy, lightheaded and had a hard time walking. While at the dialysis center she was given iron and 2 electrolyte drinks which she said normally give her diarrhea. Pt had difficulty getting to her car but was able to get home and stayed in bed because she felt too weak to get up. Pt currently lives alone and is normally very active and tends a garden daily. Pt rated her weakness at a 9/ 10 without improvement since yesterday. Pt had also been having some diarrhea since yesterday after her dialysis appointment. Pt described diarrhea as dark and tarry. Pt labs were significant for a Hgb of 4.7. ED performed a guaiac test which was positive for occult blood. This clinical picture is consistent with an active upper GI bleed. 12/09 EGD last night found large diverticulum likely source but unable to find any active bleeding. No bleeding overnight. Occasional headache not unusual for her. Weakness. 12/10 Patient doing well no diarrhea no new complaints. Review of Systems: denies fever/chills/nausea/vomiting/chest or abdominal pain/cough/dyspnea/ diarrhea. Otherwise see above. - Constitutional Vitals: Vital Signs Temp Pulse Resp BP Pulse Ox 98.4 F 61 18 160/67 94 12/10/17 07:39 12/10/17 07:39 12/10/17 07:39 12/10/17 07:39 12/10/17 07:39 Period Temp Pulse Resp BP Sys/Gallardo Pulse Ox Last 24 Hr 98.4 F-99.1 F 61-80 13-29 107-167/48-115 93-100 Intake and Output 12/09/17 12/10/17 12/10/17 21:59 05:59 13:59 Intake Total 575 / 575 Output Total 698 / 698 490 / 490 165 / 165 Balance -123 / -123 -490 / -490 -165 / -165 Weight 55.883 kg Intake & Output: Intake & Output 12/09/17 12/10/17 12/10/17 21:59 05:59 13:59 Intake Total 575 / 575 Output Total 698 / 698 490 / 490 165 / 165 Balance -123 / -123 -490 / -490 -165 / -165 Weight 55.883 kg Intake: Oral 575 / 575 Output: Urine Catheter Amount 548 / 548 490 / 490 165 / 165 Stool 150 / 150 Other: Meal Dinner Percent of Meal Consumed 100% Urine Appearance Clear Clear Clear Uretheral (Ybarra) Clear Urine Color Bright Yellow Pale Pale Uretheral (Ybarra) Pale Stool Color Black Stool Consistency Liquid Exam: General: Alert, Awake, No acute Distress HEENT: EOMI, CV: RRR, No murmurs, normal s1/s2 Pulm: Clear b/l, no wheezing/rhonchi/rales Abd: soft, nontender, +BS x4 Ext: no clubbing/cyanosis/edema Neuro: Alert, no focal deficits, moves all extremities Skin: warm/dry, Medical - PN: Obj Da - Labs CBC & Chem 7: 12/10/17 03:53 12/10/17 03:53 Labs: Abnormal Lab Results 12/10/17 12/10/17 12/09/17 03:53 03:53 03:58 RBC Hgb 8.8 L Hct 23.0 L RDW Lymph % (Auto) Lymph # (Auto) PT INR Anion Gap BUN 69 H 70 H Creatinine 3.9 H 3.5 H Glucose 126 H Calcium Phosphorus 5.2 H 4.8 H Total Bilirubin 1.4 H Total Protein 5.7 L 5.1 L Albumin 3.0 L Globulin 2.1 L Triglycerides 176 H Urine Protein Urine Bacteria 12/09/17 12/08/17 12/08/17 03:58 11:15 08:51 RBC 2.60 L Hgb 7.6 L Hct 23.8 L RDW 16.8 H Lymph % (Auto) Lymph # (Auto) 1.2 L PT 40.8 H INR 4.1 H Anion Gap BUN Creatinine Glucose Calcium Phosphorus Total Bilirubin Total Protein Albumin Globulin Triglycerides Urine Protein 100 A Urine Bacteria Few A 12/08/17 12/08/17 08:51 08:51 RBC 1.45 L Hgb 4.7 L* Hct 14.0 L* RDW Lymph % (Auto) 12.6 L Lymph # (Auto) 1.2 L PT INR Anion Gap 17.0 H BUN 69 H Creatinine 3.1 H Glucose 126 H Calcium 8.4 L Phosphorus Total Bilirubin Total Protein 5.5 L Albumin Globulin Triglycerides Urine Protein Urine Bacteria Meds: Medications Acetaminophen (Tylenol) 650 mg PO Q6HP PRN PRN Reason: PAIN/FEVER > 101 Last Admin: 12/10/17 04:15 Dose: 650 mg Calcium Acetate (Phoslo) 667 mg PO TIDCC [facility] Last Admin: 12/10/17 08:52 Dose: 667 mg Clonidine HCl (Catapres) 0.05 mg PO TID [facility] Last Admin: 12/09/17 20:30 Dose: 0.05 mg Doxazosin Mesylate (Cardura) 2 mg PO HS [facility] Last Admin: 12/09/17 20:39 Dose: 2 mg Doxazosin Mesylate (Cardura) 1 mg PO DAILY [facility] Last Admin: 12/09/17 09:15 Dose: 1 mg Fish Oil (Fish Oil) 1,000 mg PO BID [facility] Furosemide (Lasix) 80 mg PO QDAY [facility] Last Admin: 12/09/17 09:23 Dose: 80 mg Gabapentin (Neurontin) 100 mg PO QHS [facility] Lisinopril (Zestril) 10 mg PO DAILY [facility] Lorazepam (Ativan) 0.5 mg PO Q5H [facility] Last Admin: 12/10/17 04:45 Dose: 0.5 mg Nifedipine (Procardia Xl) 30 mg PO QDAY [facility] Last Admin: 12/09/17 09:23 Dose: 30 mg Omeprazole (Prilosec) 20 mg PO ACB [facility] Pantoprazole Sodium (Protonix) 40 mg IV DAILY [facility] Last Admin: 12/09/17 08:14 Dose: 40 mg Paroxetine HCl (Paxil) 30 mg PO QDAY [facility] Last Admin: 12/09/17 09:23 Dose: 30 mg Propranolol HCl (Inderal) 60 mg PO BID [facility] Simvastatin (Zocor) [address] [facility] Last Admin: 12/09/17 20:30 Dose: 20 mg Sodium Bicarbonate (Sodium Bicarbonate) 1,300 mg PO BID [facility] Last Admin: 12/09/17 20:30 Dose: 1,300 mg Sodium Chloride (Saline Flush) 10 ml IV Q8 [facility] Last Admin: 12/10/17 05:37 Dose: 10 ml Medical - PN: A/P - Time Spent With Patient Total time spent is greater than 50% in coordination of care (as documented) at patient's floor/unit and/or counseling patient: - Narrative A/P Narrative: ssessment 1) GI bleed: EGD with large duodenal diverticulum likely source 2) Anemia, acute - secondary to blood loss -8.8<7.6 <s/p 3 PRBC (12/08)< 4.7 3) Weakness/Fatigue secondary to anemia/blood loss 4) HTN 5) Anxiety 6) End stage renal disease - Followed by Dr. Mijares 7) Tobacco use disorder ) PE diagnosis recently via V/Q "intermediate" but CT noted to have chronic bronchitis findings Plan -monitor H&H -GI following -ppi -CTA negative for PE no need to resume Coumadin - Manage with current HTN Meds - Treat anxiety prn - Nephro following - [place] Pt on smoking cessation -ppx: [facility] Medical - PN: Qual - VTE Deep Vein Thrombosis/Pulmonary Embolism Present on Admission: No
[2017-12-10] MEDS: PANTOPRAZOLE 40 MG VIAL IV SCH (09:06)
--- NOTE | 2017-12-10 09:06 | Discharge Summary ---
Medical - DS: Prov Patient information: Note initiated : 12/10/17 at 9:04 am Service Date, if different from initiated Date: [] Patient: Yessy Valderrama 77 y/o F admitted on 12/08/17 for Weakness. Chief Complaint: [] Date of admission: 12/08/17 13:05 Discharge date: 12/10/17 Primary care physician: Vasu Lazo Consults: 12/08/17 Consult to Physician [CONS] Stat Comment: Consulting Provider: Ekaterina Mijares Reason For Exam: Physician to Consult Consult to Physician [CONS] Stat Comment: Consulting Provider: José Luis Mcdonnell Reason For Exam: Physician to Consult Consult to Physician [CONS] Stat Comment: Consulting Provider: Sunday oMra Reason For Exam: Physician to Consult Medical - DS: Meds - Discharge Medications Active and Home Medications: Home Medications lovastatin 40 mg tablet 40 mg PO QHS tab 09/14/14 [History Confirmed 12/08/17 Last Taken 02/20/17] nifedipine ER 30 mg tablet,extended release 30 mg PO QDAY tab 09/14/14 [ History Confirmed 12/08/17 Last Taken 04/08/17] omega-3 fatty acids-fish oil 684 mg-1,200 mg capsule,delayed release 2 cap PO BID cap 09/14/14 [History Confirmed 12/08/17 Last Taken 02/20/17] Doxazosin Mesylate [Cardura] 1 mg PO BID 02/20/17 [History Confirmed 12/08/17 Last Taken 02/20/17] Acetaminophen [Tylenol] 650 mg PO Q6HP PRN tab 02/21/17 [Rx Confirmed 12/08/17 Last Taken Unknown] LORazepam [Ativan] 0.5 mg PO Q5H tab 02/21/17 [Rx Confirmed 12/08/17 Last Taken Unknown] paroxetine 20 mg tablet 30 mg PO QDAY tab 06/22/17 [History Confirmed 12/08/17 Last Taken Unknown] calcium acetate 667 mg capsule 667 mg PO .TID with meals #270 cap 09/13/17 [Rx Confirmed 12/08/17 Last Taken Unknown] omeprazole 20 mg capsule,delayed release 20 mg PO QDAY cap 10/05/17 [History Confirmed 12/08/17 Last Taken Unknown] sodium bicarbonate 650 mg tablet 1,300 mg PO BID 30 Days #120 tab 10/05/17 [Rx Confirmed 12/08/17 Last Taken Unknown] clonidine HCl 0.1 mg tablet 0.05 mg PO TID tab 11/01/17 [Rx Confirmed 12/08/17 Last Taken Unknown] Warfarin [Coumadin] 5 mg PO DAILY #15 tab 11/22/17 [Rx Confirmed 12/08/17 Last Taken Unknown] furosemide 80 mg tablet 80 mg PO QDAY #30 tab 11/25/17 [Rx Confirmed 12/08/17 Last Taken Unknown] Enalapril [Vasotec] 10 mg PO DAILY 12/09/17 [History Confirmed 12/09/17 Last Taken Unknown] Propranolol [Inderal] 60 mg PO BID 12/09/17 [History Confirmed 12/09/17 Last Taken Unknown] gabapentin 100 mg capsule 100 mg PO QHS #30 cap 12/09/17 [Rx Confirmed 12/09/17 Last Taken Unknown] Medical - DS: Hosp Hospital course: Ms. Valderrama is a 77 year old F with a past medical history of smoking, probable pulmonary embolism diagnosed and treated less than a month ago, rheumatoid arthritis, chronic kidney disease, diverticulitis and gastric ulcers. Pt presented to the ED today for extreme weakness which began yesterday upon standing up after her dialysis appointment. Pt stated that when she stood up she felt dizzy, lightheaded and had a hard time walking. While at the dialysis center she was given iron and 2 electrolyte drinks which she said normally give her diarrhea. Pt had difficulty getting to her car but was able to get home and stayed in bed because she felt too weak to get up. Pt currently lives alone and is normally very active and tends a garden daily. Pt rated her weakness at a 9/ 10 without improvement since yesterday. Pt had also been having some diarrhea since yesterday after her dialysis appointment. Pt described diarrhea as dark and tarry. Pt labs were significant for a Hgb of 4.7. ED performed a guaiac test which was positive for occult blood. This clinical picture is consistent with an active upper GI bleed. 12/09 EGD last night found large diverticulum likely source but unable to find any active bleeding. No bleeding overnight. Occasional headache not unusual for her. Weakness. 12/10 Patient doing well no diarrhea no new complaints. Stable for discharge Discharge diagnosis: GI bleed and anemia weakness fatigue - Time Spent with Patient Total time spent providing and/or coordinating discharge services: Greater than 30 minutes Medical - DS: Exam - Constitutional Vitals: Vital Signs Temp Pulse Resp BP Pulse Ox 12/10/17 07:39 98.4 F 61 18 160/67 94 12/10/17 06:11 67 15 97 12/10/17 06:01 65 16 146/80 96 12/10/17 05:07 17 12/10/17 05:01 71 18 145/67 98 12/10/17 04:07 66 20 98 12/10/17 04:01 98.8 F 19 159/74 98 12/10/17 03:12 66 13 100 12/10/17 03:03 66 16 151/74 100 12/10/17 02:02 67 17 131/67 99 12/10/17 01:15 72 18 100 12/10/17 01:01 71 17 153/78 100 12/10/17 00:01 99.1 F H 68 18 133/86 100 12/09/17 23:29 68 24 H 99 12/09/17 23:00 70 23 H 141/70 100 12/09/17 22:54 68 14 99 12/09/17 22:01 18 131/82 99 12/09/17 21:57 68 29 H 97 12/09/17 20:10 73 17 153/76 98 12/09/17 20:01 73 16 98 12/09/17 20:00 98.5 F 12/09/17 19:27 74 21 99 12/09/17 19:13 77 18 137/76 97 12/09/17 18:13 77 17 150/76 97 12/09/17 17:02 80 20 167/48 95 12/09/17 16:01 98.4 F 20 146/65 95 12/09/17 15:02 76 21 150/56 97 12/09/17 14:20 77 20 134/115 96 12/09/17 13:02 23 H 107/88 95 12/09/17 13:00 95 12/09/17 12:02 99.1 F H 73 21 152/54 93 12/09/17 11:01 67 20 142/53 94 12/09/17 10:01 69 18 150/57 95 Intake and Output 09/13/18 09/14/18 09/14/18 21:59 05:59 13:59 Intake Total 575 / 575 Output Total 698 / 698 490 / 490 165 / 165 Balance -123 / -123 -490 / -490 -165 / -165 Intake: Oral 575 / 575 Output: Urine Catheter Amount 548 / 548 490 / 490 165 / 165 Stool 150 / 150 Other: Meal Dinner Percent of Meal Consumed 100% Urine Appearance Clear Clear Clear Uretheral (Ybarra) Clear Urine Color Bright Yellow Pale Pale Uretheral (Ybarra) Pale Stool Color Black Stool Consistency Liquid Weight 55.883 kg Medical - DS: Data Labs on day of discharge: Labs from last 24 hours 12/10/17 12/10/17 03:53 03:53 Hgb 8.8 L Hct 23.0 L Sodium 142 Potassium 3.8 Chloride 102 Carbon Dioxide 25 Anion Gap 15.0 BUN 69 H Creatinine 3.9 H GFR Calculation 11 Glucose 126 H Uric Acid 7.1 Calcium 9.5 Phosphorus 5.2 H Magnesium 1.6 Total Bilirubin 0.6 Direct Bilirubin < 0.2 GGT 22 AST 17 ALT 14 Alkaline Phosphatase 46 Lactate Dehydrogenase 216 Total Protein 5.7 L Albumin 3.3 Globulin 2.4 Albumin/Globulin Ratio 1.4 Triglycerides 135 Medical - DS: A/P - Patient/Caregiver Discharge Instructions Activity: increase activity as tolerated Diet: Renal - Follow up Plan Follow up with: Vasu Lazo MD [Primary Care Provider] - Ekaterina Mijares MD [Physician] - Disposition: Home, Self-Care Prognosis: Fair Rehab Potential: Fair Medical - DS: Qual - VTE Deep Vein Thrombosis/Pulmonary Embolism Present on Admission: No
[2017-12-10] MEDS: PARoxetine 20 MG TABLET PO SCH (09:09)
[2017-12-10] MEDS: FUROSEMIDE 80 MG TABLET PO SCH (09:10)
[2017-12-10] MEDS: NIFEdipine 30 MG TAB.XL.24H PO SCH (09:10)
[2017-12-10] MEDS: SODIUM BICARBONATE 650 MG TABLET PO SCH (09:11)
[2017-12-10] MEDS ORDERED: GABAPENTIN 100 MG CAPSULE PO SCH (21:00)
[2017-12-11] MEDS ORDERED: OMEPRAZOLE 20 MG CAPSULE PO SCH (07:30)
== END 2017-12-10 15:16 | disposition home or self-care (01) | DRG 377 ==
LOC: ED 08:29 → ICU 13:00
PROVIDERS: ADMIT Internal Medicine; ATTEND Internal Medicine

== ENCOUNTER 2018-08-10 16:24 | Observation (INO) ==
[2018-08-10] MEDS ORDERED: 0.9 % SODIUM CHLORIDE 250 ML IV SCH (17:00)
[2018-08-10] MEDS ORDERED: 0.9 % SODIUM CHLORIDE 1,000 ML IV ONE (17:10)
[2018-08-10 17:23] LABS: Basophils # (Auto) 0.1 K/mcL (0.0-0.3); Basophils % (Auto) 1.3 % (0.0-2.0); Eosinophils # (Auto) 0.1 K/mcL (0.0-0.7); Eosinophils % (Auto) 1.9 % (0.0-7.0); Granulocytes % (Auto) 70.9 % (38.0-78.0); Lymphocytes % (Auto) 17.1 % (15.5-49.0); Mean Cell Volume 97.6 fL (80.0-100.0); Mean Corpuscular HGB Conc 33.9 g/dL (31.0-36.0); Monocytes # (Auto) 0.5 K/mcL (0.1-0.9); Monocytes % (Auto) 8.8 % (1.0-12.0); Platelet Count 298 K/mcL (140-440); RBC 2.34 M/mcL (4.00-5.20); Red Cell Distribution Width 17.3 % (11.5-14.5)
[2018-08-10 17:50] LABS: ALT/SGPT 7 U/l (0-40); Albumin/Globulin Ratio 1.1 (1.0-2.3); Alkaline Phosphatase 104 U/L (39-117); Blood Urea Nitrogen 82 mg/dl (8-23)
--- NOTE | 2018-08-10 18:10 | Emergency Department Note ---
GI Bleed HPI - General Chief complaint: Rectal Bleed Stated complaint: low Hgb, rectal bleeding Time Seen by Provider: 08/10/18 18:06 Source: patient Mode of arrival: ambulatory Limitations: no limitations - History of Present Illness HPI Narrative: This pleasant 78-year-old female comes emergency room with concern regarding rectal bleeding there is been persistent as well as weakness that is been progressive over the last 1 to 2 weeks. She has a history of her bowels bleeding from the lower bowel. She has a history of prolapse. She has had onset of worsening it seems of the prolapse for 4 days and continuing with protrusions including 3 days ago and bleeding ever since then. The prolapse comes in and out. There is some accompanying low back pain. She reports recently being on dialysis times the last 1 month getting peritoneal dialysis guided by Dr. Boyd, with the last being done today. She has some mild discomfort in her abdomen centrally. She feels quite thirsty. Her pain has at times been bad in the abdomen. REVIEW OF SYSTEMS: No fevers or chills. No chest pain No shortness of breath except with order related to the weakness. No nausea or vomiting has had a little looser stools recently. No dysuria. Does produce some urine. Has some chronic low back pain but has been worse of recent. Weakness has been quite significant but not specific lightheadedness or dizziness. Has some chronic anxiety and is treated for depression but does not feel depressed currently. - Related Data Home Medications Medication Instructions Recorded Confirmed lovastatin 40 mg tablet 40 mg PO QHS tab 09/14/14 08/08/18 nifedipine ER 30 mg 30 mg PO QDAY tab 09/14/14 08/08/18 tablet,extended release omega-3 fatty acids-fish oil 684 2 cap PO BID cap 09/14/14 08/08/18 mg-1,200 mg capsule,delayed release paroxetine 20 mg tablet 30 mg PO QDAY tab 06/22/17 08/08/18 omeprazole 20 mg capsule,delayed 20 mg PO QDAY cap 10/05/17 08/08/18 release Enalapril [Vasotec] 10 mg PO DAILY 12/09/17 08/08/18 Propranolol [Inderal] 60 mg PO BID 12/09/17 08/08/18 Previous Rx's Medication Instructions Recorded Acetaminophen [Tylenol] 650 mg PO Q6HP PRN tab 02/21/17 LORazepam [Ativan] 0.5 mg PO Q5H tab 02/21/17 gentamicin 0.1 % topical ointment 1 applic TOPICAL QDAY #30 g 04/01/18 clonidine HCl 0.1 mg tablet 0.05 mg PO TID #45 tab 04/26/18 gabapentin 100 mg capsule 100 mg PO QHS #30 cap 06/28/18 calcium acetate 667 mg capsule 667 mg PO .TID with meals #270 cap 07/06/18 levofloxacin 250 mg tablet 250 mg PO Q48H #4 tab 07/17/18 doxazosin 2 mg tablet See Rx Instructions .ROUTE 07/25/18 .COMPLEX #135 tab furosemide 80 mg tablet 80 mg PO QDAY #90 tab 07/25/18 sodium bicarbonate 650 mg tablet 1,300 mg PO BID #120 tab 07/26/18 Allergies Allergy/AdvReac Type Severity Reaction Status Date / Time tetracycline [Tetracycline] Allergy Mild Rash Verified 08/10/18 16:27 Hydralazine AdvReac Intermediate Tingling Verified 08/10/18 16:27 hydrocodone AdvReac Mild "makes me Verified 08/10/18 16:27 [From Lorcet (hydrocodone)] hyper" Past Medical History - Past Medical History [facility] Narrative: Medical History (Last Reviewed 08/08/18 @ 11:36 by Shelli Rose CMA) Interstitial fibrosis (Chronic) 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) Nephrosclerosis (Chronic) Edema (Chronic) Renal malignant neoplasm (Suspected) Hyponatremia (Acute) Hypokalemia (Acute) Gastroenteritis (Acute) Chronic kidney disease, stage IV (severe) (Chronic) Hypertensive renal disease (Chronic) Diabetes mellitus (Chronic) Anemia (Chronic) Secondary hyperparathyroidism of renal origin (Chronic) Hypercalcemia (Chronic) Hyponatremia (Chronic) Chronic kidney disease, stage III (moderate) (Chronic) History of hysterectomy (Acute) Renal failure (Acute 06/20/14) Proteinuria (Chronic 06/20/14) Insulin resistance (Acute) Hypertension, essential (Chronic 06/20/14) Past Surgical History (Last Updated 08/08/18 @ 11:39 by Shelli Rose CMA) Hx of biopsy (Chronic) History of cholecystectomy (Acute) History of bladder surgery (Acute) History of peritoneal dialysis (Acute) History of surgery (Chronic 07/11/15) Family History (Last Updated 08/08/18 @ 11:41 by Shelli Rose [facility]) Maternal Grandfather Chronic Kidney Disease Paternal Grandfather Type 1 diabetes mellitus Acute myocardial infarction Unknown Type 2 diabetes mellitus Father Malignant neoplasm Acute myocardial infarction Paternal Grandmother Cerebrovascular accident Hypertension Mother Cerebrovascular accident Hypertension Medical history: Reports: DM, hypertension, renal disease Psychiatric history: Reports: no psych history [employer] history: Reports: non-contributory Surgical history ED: Reports: cholecystectomy, hysterectomy, other (bladder, recent kidney biopsy) - Social History smoking status: Current every day smoker Physical Exam Limitations: no limitations General appearance: alert, in no apparent distress Head: atraumatic, normocephalic Eye: Present: EOMI Neck: Present: trachea midline. Absent: lymphadenopathy, thyromegaly Chest: Present: symmetric chest wall rise Respiratory: Present: normal lung sounds bilaterally. Absent: respiratory distress, wheezes, stridor, accessory muscle use, prolonged expiratory phase Cardiovascular: Present: regular rate, normal rhythm, irregular rhythm (at times.). Absent: systolic murmur, diastolic murmur Abdominal: Present: soft, tenderness. Absent: distention, guarding, rebound, rigidity, organomegaly, mass Abdominal tenderness: Present: epigastrium, dean umbilical, mild, moderate Rectal: Present: normal rectal tone, heme (+) stool. Absent: fecal impaction, hemorrhoids, mass, tenderness Extremities: Absent: pedal edema, pretibial edema, calf tenderness Back: Absent: CVA tenderness (R), CVA tenderness (L), spinous process tenderness Neurological: Present: alert, oriented X3 Psychiatric: Present: normal affect, normal mood Skin: Present: warm, dry Course Vital Signs Temperature 97.9 F 08/10/18 16:24 Pulse Rate 86 08/10/18 16:24 Respiratory Rate 20 08/10/18 16:24 Blood Pressure 170/68 08/10/18 16:24 Pulse Oximetry (%) 94 08/10/18 16:24 Temperature 97.9 F 08/10/18 16:24 Pulse Rate 91 H 08/10/18 21:07 Respiratory Rate 20 08/10/18 16:24 Blood Pressure 166/60 08/10/18 21:03 Pulse Oximetry (%) 91 08/10/18 21:07 GI Bleed - [facility] Narrative Medical decision making narrative: Patient with chronic renal failure and severe anemia coming in because of bleeding rectally and weakness. Multiple labs. Is demonstrating some significant abdominal pain but only on exam. White count is normal. Does not look acutely ill or of major concern in general appearance, able to smile and be appropriate and interactive chest pale. Type and cross for 2 units. 8:46 PM - Patient's abdominal pain has been significant intermittent but rather significant and severe. Because of this adding lactate CRP and CT scan without contrast. Daughter also reports that the abdominal pain has been there for a few days. She has a CT scan ordered outpatient tomorrow, ordered by Dr. Vigil. She has been so weak in the past day or 2 that she cannot even get up to go to the bathroom. Daughter has had to stay with her several times. Patient is requesting consideration to need to be longer-term cared for inpatient. 10:45 PM - I spoke with Dr. Hernandez regarding patient's bleeding at the request of hospitalist. He points out that she is quite stable including her average hemoglobin over the last last years been in the lower 8.2 range, she is hypertensive rather than hypotensive, and her amount of bleeding has been minimal. She has also had colonoscopies in the last year and a half with limited findings as well as an upper GI with a healed gastric ulcer. Therefore she is rather stable and he can assist in follow-up as needed without urgent intervention or preparation for colonoscopy overnight. 10:55 PM - hospitalist agrees to accept patient considering her self-care deficits and needing to be monitored on her weakness after replacement of blood. - Medical Records Medical records reviewed: Yes I reviewed the patient's medical records. - Lab Data Lab results reviewed: Yes I reviewed the patient's lab results. Result diagrams: 08/10/18 16:52 08/10/18 16:52 Lab Results 08/10/18 08/10/18 08/10/18 Range/Units 16:52 16:52 21:10 WBC 5.6 (4.5-11.0) K/mcL RBC 2.34 L (4.00-5.20) M/mcL Hgb 7.7 L (12.0-15.0) g/dL Hct 22.8 L (36.0-48.0) % POC Hct 22.0 L (36.0-48.0) % MCV 97.6 (80.0-100.0) fL MCH 33.1 (26.0-34.0) pg MCHC 33.9 (31.0-36.0) g/dL RDW 17.3 H (11.5-14.5) % Plt Count 298 (140-440) K/mcL MPV 8.0 (7.4-10.4) fL Gran % 70.9 (38.0-78.0) % Lymph % (Auto) 17.1 (15.5-49.0) % [place] % (Auto) 8.8 (1.0-12.0) % Eos % (Auto) 1.9 (0.0-7.0) % Baso % (Auto) 1.3 (0.0-2.0) % Gran # 4.0 (1.8-8.0) K/mcL Lymph # (Auto) 1.0 L (1.5-4.8) K/mcL [place] # (Auto) 0.5 (0.1-0.9) K/mcL Eos # (Auto) 0.1 (0.0-0.7) K/mcL Baso # (Auto) 0.1 (0.0-0.3) K/mcL VBG Lactic Acid 0.5 (0.5-2.0) mmol/L POC Sodium 134 (133-145) mmol/L Sodium 132 L (133-145) mmol/L POC Potassium 3.6 (3.3-5.1) mmol/L Potassium 3.7 (3.3-5.1) mmol/L POC Chloride 94 L (96-108) mmol/L Chloride 92 L (96-108) mmol/L Carbon Dioxide 24 (22-30) mmol/L POC Total CO2 24 (22-30) mmol/L Anion Gap 16.0 (8-16) POC BUN 84 H (8-23) mg/dl BUN 82 H (8-23) mg/dl Creatinine 6.2 H* (0.6-1.1) mg/dl POC Creatinine 6.9 H* (0.6-1.1) mg/dl GFR Calculation 6 Glucose 87 (70-105) mg/dL POC Glucose 82 (70-105) mg/dL Calcium 8.8 (8.6-10.4) mg/dl POC WB Ioniz Calcium 1.10 L (1.16-1.32) mmol/L Total Bilirubin 0.2 (0.0-1.0) mg/dL AST 11 (0-37) U/l ALT 7 (0-40) U/l Alkaline Phosphatase 104 (39-117) U/L C-Reactive Protein (0.0-0.8) mg/dl Total Protein 5.8 L (5.9-8.4) gm/dL Albumin 3.0 L (3.2-5.2) gm/dL Globulin 2.8 (2.2-3.7) gm/dL Albumin/Globulin Ratio 1.1 (1.0-2.3) 08/10/18 Range/Units 21:10 WBC (4.5-11.0) K/mcL RBC (4.00-5.20) M/mcL Hgb (12.0-15.0) g/dL Hct (36.0-48.0) % POC Hct 22.0 L (36.0-48.0) % MCV (80.0-100.0) fL MCH (26.0-34.0) pg MCHC (31.0-36.0) g/dL RDW (11.5-14.5) % Plt Count (140-440) K/mcL MPV (7.4-10.4) fL Gran % (38.0-78.0) % Lymph % (Auto) (15.5-49.0) % [place] % (Auto) (1.0-12.0) % Eos % (Auto) (0.0-7.0) % Baso % (Auto) (0.0-2.0) % Gran # (1.8-8.0) K/mcL Lymph # (Auto) (1.5-4.8) K/mcL [place] # (Auto) (0.1-0.9) K/mcL Eos # (Auto) (0.0-0.7) K/mcL Baso # (Auto) (0.0-0.3) K/mcL VBG Lactic Acid (0.5-2.0) mmol/L POC Sodium 135 (133-145) mmol/L Sodium (133-145) mmol/L POC Potassium 3.6 (3.3-5.1) mmol/L Potassium (3.3-5.1) mmol/L POC Chloride 98 (96-108) mmol/L Chloride (96-108) mmol/L Carbon Dioxide (22-30) mmol/L POC Total CO2 24 (22-30) mmol/L Anion Gap (8-16) POC BUN 83 H (8-23) mg/dl BUN (8-23) mg/dl Creatinine (0.6-1.1) mg/dl POC Creatinine 6.5 H* (0.6-1.1) mg/dl GFR Calculation Glucose (70-105) mg/dL POC Glucose 80 (70-105) mg/dL Calcium (8.6-10.4) mg/dl POC WB Ioniz Calcium 1.12 L (1.16-1.32) mmol/L Total Bilirubin (0.0-1.0) mg/dL AST (0-37) U/l ALT (0-40) U/l Alkaline Phosphatase (39-117) U/L C-Reactive Protein 1.3 H (0.0-0.8) mg/dl Total Protein (5.9-8.4) gm/dL Albumin (3.2-5.2) gm/dL Globulin (2.2-3.7) gm/dL Albumin/Globulin Ratio (1.0-2.3) - Radiology Data Radiology results reviewed: Yes I reviewed the patient's radiology results. - EKG Data EKG results narrative: No acute coronary syndrome findings. Borderline left axis deviation and borderline prolonged QT interval. This ECG will be read by a window shade cutter. Disposition Pt seen by ENGINEERING ILLUSTRATOR/PA only: No Clinical Impression: Pelvic pain, Chronic kidney disease with peritoneal dialysis as preferred modality, stage 5, Rectal bleeding, Rectal prolapse Anemia Qualifiers: Anemia type: due to chronic kidney disease Chronic kidney disease stage: on chronic dialysis Qualified Code(s): N18.6 - End stage renal disease; D63.1 - Anemia in chronic kidney disease; Z99.2 - Dependence on renal dialysis Disposition: Xfer As Inpt ([facility]) Condition: Fair Referrals: Vasu Lazo MD [Primary Care Provider] -
[2018-08-10] MEDS ORDERED: HYDROcodone/APAP 5/325MG TABLET PO ONE (18:53)
[2018-08-10] MEDS ORDERED: PROPRANOLOL 60 MG CAP.XL.24H PO ONE (21:46)
[2018-08-10 22:12] LABS: C-Reactive Protein 1.3 mg/dl (0.0-0.8)
[2018-08-10] MEDS ORDERED: LISINOPRIL 20 MG TABLET PO ONE (22:39)
--- NOTE | 2018-08-10 22:56 | Internal Med History&Physical ---
Medical - H&P: [facility] Patient information: Note initiated : 08/10/18 at 10:50 pm Service Date, if different from initiated Date: [] Patient: Yessy Valderrama a 78 y/o F admitted on for low Hgb, rectal bleeding. Chief Complaint: [] History of present illness: Ms. 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 Mccoy for low hemoglobin. Patient also has a headache history of rectal prolapse and follows with Dr. Vigil. she has been feeling very fatigued lately. She has bright red blood per rectum. 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 Patient says she has some bleeding from her right rectum daily for the past 3 to 4 days and she is been feeling weaker. Hemoglobin is checked several times and it remained stable in the upper sevens. She is getting blood in the ER. Blood pressure stable, only a little blood noted in the ED. Case was discussed with Dr. Hernandez from the ED. Patient denies any lightheadedness or chest pain or shortness of breath. CT abdomen pelvis is pending and patient was transferred over the floor pending the results of the CT; if there is anything concerning on the CT this will need to be further pursued before transferring over or discussed with the surgeon. Review of Systems: Pertinent positives as above. Denies headache/fever /chills/nausea/vomiting/chest or abdominal pain/cough/dyspnea/. 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) Nephrosclerosis (Chronic) Edema (Chronic) Renal malignant neoplasm (Suspected) Hyponatremia (Acute) Hypokalemia (Acute) Gastroenteritis (Acute) Chronic kidney disease, stage IV (severe) (Chronic) Hypertensive renal disease (Chronic) Diabetes mellitus (Chronic) Anemia (Chronic) Secondary hyperparathyroidism of renal origin (Chronic) Hypercalcemia (Chronic) Hyponatremia (Chronic) Chronic kidney disease, stage III (moderate) (Chronic) History of hysterectomy (Acute) Renal failure (Acute 06/20/14) Proteinuria (Chronic 06/20/14) Insulin resistance (Acute) Hypertension, essential (Chronic 06/20/14) Past Surgical History (Last Updated 08/08/18 @ 11:39 by Shelli Rose CMA) Hx of biopsy (Chronic) History of cholecystectomy (Acute) History of bladder surgery (Acute) History of peritoneal dialysis (Acute) History of surgery (Chronic 07/11/15) Family History (Last Updated 08/08/18 @ 11:41 by Shelli Rose CMA) Maternal Grandfather Chronic Kidney Disease Paternal Grandfather Type 1 diabetes mellitus Acute myocardial infarction Unknown Type 2 diabetes mellitus Father Malignant neoplasm Acute myocardial infarction Paternal Grandmother Cerebrovascular accident Hypertension Mother Cerebrovascular accident Hypertension Social History (Last Updated 08/10/18 @ 11:59 by Mimi Vigil MD) Patient smokes half pack of cigarettes per day Drinks alcohol socially And was with a cane Lives alone Medical - H&P: Meds Home Medications Medication Instructions Recorded Confirmed Type lovastatin 40 mg tablet 40 mg PO QHS tab 09/14/14 08/08/18 History nifedipine ER 30 mg 30 mg PO QDAY tab 09/14/14 08/08/18 History tablet,extended release omega-3 fatty acids-fish oil 684 2 cap PO BID cap 09/14/14 08/08/18 History mg-1,200 mg capsule,delayed release Acetaminophen [Tylenol] 650 mg PO Q6HP PRN tab 02/21/17 08/08/18 Rx LORazepam [Ativan] 0.5 mg PO Q5H tab 02/21/17 08/08/18 Rx paroxetine 20 mg tablet 30 mg PO QDAY tab 06/22/17 08/08/18 History omeprazole 20 mg capsule,delayed 20 mg PO QDAY cap 10/05/17 08/08/18 History release Enalapril [Vasotec] 10 mg PO DAILY 12/09/17 08/08/18 History Propranolol [Inderal] 60 mg PO BID 12/09/17 08/08/18 History gentamicin 0.1 % topical ointment 1 applic TOPICAL QDAY #30 g 04/01/18 08/08/18 Rx clonidine HCl 0.1 mg tablet 0.05 mg PO TID #45 tab 04/26/18 08/08/18 Rx gabapentin 100 mg capsule 100 mg PO QHS #30 cap 06/28/18 08/08/18 Rx calcium acetate 667 mg capsule 667 mg PO .TID with meals #270 cap 07/06/18 08/08/18 Rx levofloxacin 250 mg tablet 250 mg PO Q48H #4 tab 07/17/18 08/08/18 Rx doxazosin 2 mg tablet See Rx Instructions .ROUTE 07/25/18 08/08/18 Rx .COMPLEX #135 tab furosemide 80 mg tablet 80 mg PO QDAY #90 tab 07/25/18 08/08/18 Rx sodium bicarbonate 650 mg tablet 1,300 mg PO BID #120 tab 07/26/18 08/08/18 Rx Allergies Allergy/AdvReac Type Severity Reaction Status Date / Time tetracycline [Tetracycline] Allergy Mild Rash Verified 08/10/18 16:27 Hydralazine AdvReac Intermediate Tingling Verified 08/10/18 16:27 hydrocodone AdvReac Mild "makes me Verified 08/10/18 16:27 [From Lorcet (hydrocodone)] hyper" Medical - H&P: Exam - Constitutional Vitals: Temp Pulse Resp BP Pulse Ox 97.9 F 91 H 20 166/60 91 08/10/18 16:24 08/10/18 21:07 08/10/18 16:24 08/10/18 21:03 08/10/18 21:07 Exam: General: Alert, Awake, No acute Distress Eyes/N/T: EOMI, PEERL, DMM Head/Neck: neck supple, normocephalic atraumatic CV: RRR, No murmurs, normal s1/s2 Pulm: Clear b/l, no wheezing/rhonchi/rales Abd: soft, nontender, +BS x4 Ext: no clubbing/cyanosis/edema Neuro: Alert, no focal deficits, moves all extremities, CN 2-12 grossly intact, symmetrical strength b/l upper/lower, sensations intact b/l upper/lower Skin: warm/dry, pale Medical - H&P: Reslt - Labs CBC & Chem 7: 08/10/18 16:52 08/10/18 16:52 Labs: Short CBC 08/10/18 Range/Units 16:52 WBC 5.6 (4.5-11.0) K/mcL Hgb 7.7 L (12.0-15.0) g/dL Hct 22.8 L (36.0-48.0) % Plt Count 298 (140-440) K/mcL BMP 08/10/18 16:52 Sodium 132 L Potassium 3.7 Chloride 92 L Carbon Dioxide 24 BUN 82 H Creatinine 6.2 H* Glucose 87 Calcium 8.8 Liver Function 08/10/18 Range/Units 16:52 Total Bilirubin 0.2 (0.0-1.0) mg/dL AST 11 (0-37) U/l ALT 7 (0-40) U/l Alkaline Phosphatase 104 (39-117) U/L Albumin 3.0 L (3.2-5.2) gm/dL Medical - H&P: A/P - Narrative A/P Narrative: A: *Generalized weakness/deconditioning/inability to care for self: *Bright red blood per rectum: Hemodynamically stable *Anemia, acute on chronic from acute blood loss: Baseline hemoglobin runs 8-9's *History of rectal prolapse with bleeding: Follows with Dr. Vigil *ESRD: Peritoneal dialysis with Dr. Mendez *HYponatremia *HTN: *Anxiety/depression: *Tobacco abuse: *GERD: * P: -PRBC given in ED -monitor H&H -Monitor vital signs closely -Case was discussed with GI in the ED -We will talk with Dr. Vigil tomorrow -CT abdomen pending -Dr. Boyd for dialysis -Transfer to [facility] inpatient pending CT abdomen results -pt/ot -Case management for likely SNF placement -Smoking cessation counseling -ppx: [facility]
[2018-08-11] MEDS ORDERED: ONDANSETRON 4 MG/2 ML VIAL IV PRN (01:02)
[2018-08-11] MEDS ORDERED: PROMETHAZINE 25 MG TABLET PO PRN (01:02)
[2018-08-11] MEDS ORDERED: IPRATROPIUM/ALBUTEROL 3 ML AMPUL.NEB NEB PRN (01:02)
[2018-08-11] MEDS ORDERED: LABETALOL 5 MG/ML ML IV ONE ×3 (01:33→04:59)
[2018-08-11] MEDS: 0.9 % SODIUM CHLORIDE 10 ML SYRINGE IV SCH ×4 (01:40→20:27)
[2018-08-11] MEDS: LABETALOL 5 MG/ML ML IV PRN ×4 (01:40→05:38)
--- NOTE | 2018-08-11 06:30 | Nephrology Consult Note ---
History of Present Illness - Reason for Consult Patient information: Note initiated : 08/11/18 at 6:28 am Patient: Yessy Valderrama 78 y/o F admitted on 08/11/18 for low Hgb, rectal bleeding. Consult date: 08/11/18 end stage renal disease Requesting physician: José Luis Mcdonnell - Chief Complaint Rectal prolapse and bleeding - History of Present Illness Yessy Valderrama is a 78-year-old female with end stage renal disease due to diabetic nephropathy and hypertensive nephrosclerosis by kidney biopsy admitted on 08/10/18 for recurrent rectal prolapse associated with pain and bleeding. Review of Systems Constitutional: fatigue, no fever(s), no weight loss Nose, mouth and throat: no nasal congestion, no sore throat Cardiovascular: no chest pain, no palpatations Respiratory: no cough, no dyspnea Gastrointestinal: no abdominal pain, no nausea Genitourinary: no dysuria, no hematuria Musculoskeletal: no back pain, no joint swelling Integumentary: no rash, no wounds Neurological: no confusion, no focal weakness Psychiatric: no anxiety, no panic attacks Endocrine: no cold intolerance, no heat intolerance Hematologic/Lymphatic: no easy bleeding, no easy bruising Allergic/Immunologic: no tongue swelling, no uticaria Past History Past medical history: Medical History (Last Reviewed 08/08/18 @ 11:36 by Shelli Rose CMA) Interstitial fibrosis (Chronic) 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) Nephrosclerosis (Chronic) Edema (Chronic) Renal malignant neoplasm (Suspected) Hyponatremia (Acute) Hypokalemia (Acute) Gastroenteritis (Acute) Chronic kidney disease, stage IV (severe) (Chronic) Hypertensive renal disease (Chronic) Diabetes mellitus (Chronic) Anemia (Chronic) Secondary hyperparathyroidism of renal origin (Chronic) Hypercalcemia (Chronic) Hyponatremia (Chronic) Chronic kidney disease, stage III (moderate) (Chronic) History of hysterectomy (Acute) Renal failure (Acute 06/20/14) Proteinuria (Chronic 06/20/14) Insulin resistance (Acute) Hypertension, essential (Chronic 06/20/14) Past surgical history: Past Surgical History (Last Updated 08/08/18 @ 11:39 by Shelli Rose CMA) Hx of biopsy (Chronic) History of cholecystectomy (Acute) History of bladder surgery (Acute) History of peritoneal dialysis (Acute) History of surgery (Chronic 07/11/15) Past family history: Family History (Last Updated 08/08/18 @ 11:41 by Shelli Rose CMA) Maternal Grandfather Chronic Kidney Disease Paternal Grandfather Type 1 diabetes mellitus Acute myocardial infarction Unknown Type 2 diabetes mellitus Father Malignant neoplasm Acute myocardial infarction Paternal Grandmother Cerebrovascular accident Hypertension Mother Cerebrovascular accident Hypertension Past social history: Social History Current every day smoker Medications and Allergies Home Medications Medication Instructions Recorded Confirmed Type lovastatin 40 mg tablet 40 mg PO QHS tab 09/14/14 08/11/18 History nifedipine ER 30 mg 30 mg PO QDAY tab 09/14/14 08/11/18 History tablet,extended release omega-3 fatty acids-fish oil 684 2 cap PO BID cap 09/14/14 08/08/18 History mg-1,200 mg capsule,delayed release Acetaminophen [Tylenol] 650 mg PO Q6HP PRN tab 02/21/17 08/11/18 Rx paroxetine 20 mg tablet 30 mg PO QDAY tab 06/22/17 08/11/18 History omeprazole 20 mg capsule,delayed 20 mg PO QDAY cap 10/05/17 08/11/18 History release Enalapril [Vasotec] 10 mg PO DAILY 12/09/17 08/11/18 History Propranolol [Inderal] 60 mg PO BID 12/09/17 08/11/18 History gentamicin 0.1 % topical ointment 1 applic TOPICAL QDAY #30 g 04/01/18 08/11/18 Rx clonidine HCl 0.1 mg tablet 0.05 mg PO TID #45 tab 04/26/18 08/11/18 Rx gabapentin 100 mg capsule 100 mg PO QHS #30 cap 06/28/18 08/11/18 Rx calcium acetate 667 mg capsule 667 mg PO .TID with meals #270 cap 07/06/18 08/11/18 Rx levofloxacin 250 mg tablet 250 mg PO Q48H #4 tab 07/17/18 08/11/18 Rx doxazosin 2 mg tablet See Rx Instructions .ROUTE 07/25/18 08/11/18 Rx .COMPLEX #135 tab furosemide 80 mg tablet 80 mg PO QDAY #90 tab 07/25/18 08/11/18 Rx sodium bicarbonate 650 mg tablet 1,300 mg PO BID #120 tab 07/26/18 08/11/18 Rx LORazepam [Ativan] 0.5 mg PO 5XD 08/11/18 08/11/18 History Allergies Allergy/AdvReac Type Severity Reaction Status Date / Time tetracycline [Tetracycline] Allergy Mild Rash Verified 08/10/18 16:27 Hydralazine AdvReac Intermediate Tingling Verified 08/10/18 16:27 Exam - Vital Signs Vital signs: Temp Pulse Resp BP Pulse Ox 99.0 F 74 20 165/56 95 08/11/18 04:01 08/11/18 05:31 08/11/18 01:14 08/11/18 05:31 08/11/18 05:31 - General Appearance General appearance: appears started age, fatigue EENT: mucous membranes moist Neck: supple Cardiology: no edema, regular rate Gastrointestinal: no tenderness Integumentary: warm and dry Neurologic: no focal deficit, alert and oriented x3 Musculoskeletal: no deformities Psychiatric: mood/affect appropriate, cooperative Results - Lab Results 08/11/18 04:10 08/11/18 04:10 Most recent lab results Calcium 8.8 mg/dl (8.6-10.4) 08/10/18 16:52 Assessment and Plan (1) ESRD (end stage renal disease) on dialysis End stage renal disease. She has been switching from hemodialysis to peritoneal dialysis. Currently has been doing 2 CAPD exchanges at home. Plan: Renal replacement therapy will be continued during hospital stay with icodextrin 7.5% 2000 ml twice daily 8-16 hours dwells. Status: Chronic Priority: Medium (2) Anemia in ESRD (end-stage renal disease) The patient received Aranesp and [facility]le[facility] and 2 units PRBC in ED. Status: Chronic Priority: Medium
--- NOTE | 2018-08-11 06:31 | Cat Scan Report ---
CLINICAL INFORMATION: Diffuse lower abdominal pain. Rectal flow prolapse and history of GI bleed COMPARISON: 05/04/2012 and 03/18/[address]s TECHNIQUE: 0.625 mm helical slices were obtained from the mid heart through the subtrochanteric regions. Following reconstruction, 2.5 mm sagittal, coronal and axial reformatted images were processed and reviewed at bone and soft tissue windows.The exam was performed using radiation dose optimization techniques including, but not limited to, automated exposure control, adjustment of the mA and/or kV according to patient size and use of iterative reconstruction technique. FINDINGS: Lung bases show minimal atelectasis. There are no effusions. The visualized heart remains mildly enlarged. Images through the abdomen shows scattered simple hepatic cysts ranging up to 3.5 cm in the left hepatic lobe which demonstrate long-term stability. No significant hepatic lesion. The gallbladder is surgically absent. The common bile duct is mildly dilated but unchanged: 8 mm. Findings compatible with post cholecystectomy state. The noncontrasted pancreas, and spleen are unremarkable. Mild bilateral adrenal hyperplasia is stable since 2013. Multiple simple and hyperdense cysts throughout both kidneys, ranging up to 7.3 cm inferior pole left kidney, are unchanged from the most recent CT. There is moderate perinephric fluid bilaterally with thickening of the Gerotas' fascia is stable since the CTs dating back to 2012. The aorta is normal in diameter: 20 mm. There is extraordinarily heavy calcific plaque within the abdominal aorta. In the mid abdominal aorta, the calcific plaque nearly obliterates the aortic lumen suggesting a critical stenosis. Images through the pelvis show hysterectomy/oophorectomy changes. Ybarra catheter is properly positioned urinary bladder. The urinary bladder is grossly normal. A peritoneal dialysis catheter enters through the right mid abdominal wall and descends through the mesenteric cavity into the right true pelvis were is coiled and unchanged in position. A small amount of simple free fluid in the true pelvis parahepatic region, likely represents dialysate, but has increased slightly from the previous CT. There is a now small amount of free intraperitoneal air over the anterior liver surface with a tiny amount in the perigastric region. Few sigmoid diverticula noted. The stomach, small and large bowel show mild symmetric dilatation compatible with mild ileus. Bone windows degenerative changes in the lumbar spine are stable. No focal osseous lesions. IMPRESSION: 1. Small amount of free intraperitoneal air in the anterior perihepatic region - new from prior CT. While this is likely atmospheric contaminant from the peritoneal dialysis catheter, GI tract rupture is not absolutely excluded - particularly in the presence of acute abdominal pain. Consider either endoscopy or repeat upper abdomen/pelvic CT with copious oral contrast to exclude extravasation into the peritoneal cavity. 2. Extraordinarily heavy calcific plaque in the abdominal aorta. In the mid abdominal aorta, this heavy plaque appears to nearly obliterate the aortic lumen suggesting critical aortic stenosis. Patient is at risk for Leriche's syndrome. Is there history of bilateral lower extremity claudication or rest pain?. 3. Multiple simple and hyperdense cysts on both kidneys ranging up to 7.3 cm in the inferior left kidney. They are unchanged from the most recent CT. Perinephric stranding and thickening is a chronic, stable finding. 4. Mild ileus 5. Moderate edema within the subcutaneous fat of the abdomen and pelvic wall most prominent in the flank regions. With history of renal failure, this likely indicates volume overload or, possibly, CHF. Suggest: Chest x-ray to exclude CHF and abdominal ultrasound to evaluate the abdominal aorta for the presence of critical stenosis and also to reevaluate the renal cysts to ensure the absence of solid lesions representing renal malignancy. Interpreted and Authenticated by: Sunday Kuhn 08/11/18
[2018-08-11 06:45] LABS: ALT/SGPT 6 U/l (0-40); Albumin 2.7 gm/dL (3.2-5.2); Albumin/Globulin Ratio 1.1 (1.0-2.3); Alkaline Phosphatase 84 U/L (39-117); Bilirubin,Direct < 0.2 mg/dL (0.0-0.3); Blood Urea Nitrogen 81 mg/dl (8-23); Gamma Glutamyl Transpeptidase 12 U/L (5-36); Uric Acid 5.3 mg/dL (2.5-8.0)
[2018-08-11 06:51] LABS: Basophils # (Auto) 0.1 K/mcL (0.0-0.3); Basophils % (Auto) 1.1 % (0.0-2.0); Eosinophils # (Auto) 0.2 K/mcL (0.0-0.7); Granulocytes % (Auto) 69.9 % (38.0-78.0); Lymphocytes % (Auto) 16.4 % (15.5-49.0); Mean Cell Volume 90.5 fL (80.0-100.0); Mean Corpuscular HGB Conc 34.5 g/dL (31.0-36.0); Monocytes # (Auto) 0.6 K/mcL (0.1-0.9); Monocytes % (Auto) 9.6 % (1.0-12.0); Platelet Count 245 K/mcL (140-440); Red Cell Distribution Width 16.5 % (11.5-14.5)
[2018-08-11] MEDS ORDERED: ACETAMINOPHEN 325 MG TABLET PO PRN (07:12)
[2018-08-11] MEDS ORDERED: cloNIDine HCL 0.1 MG TABLET PO PRN (07:15)
--- NOTE | 2018-08-11 07:20 | Internal Med Progress Note ---
Medical - PN: Subj Patient information: Note initiated : 08/11/18 at 7:14 am Service Date, if different from initiated Date: [] Patient: Yessy Valderrama a 78 y/o F admitted on 08/11/18 for low Hgb, rectal bleeding. Chief Complaint: [] Interval history: Ms. Valderrama is a 78 year old F Who was sent in by her speed reading teacher Dr. Mccoy for low hemoglobin. Patient also has a headache history of rectal prolapse and follows with Dr. Vigil. she has been feeling very fatigued lately. She has bright red blood per rectum. 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 Patient says she has some bleeding from her right rectum daily for the past 3 to 4 days and she is been feeling weaker. Hemoglobin is checked several times and it remained stable in the upper sevens. She is getting blood in the ER. Blood pressure stable, only a little blood noted in the ED. Case was discussed with Dr. Hernandez from the ED. Patient denies any lightheadedness or chest pain or shortness of breath. CT abdomen pelvis is pending and patient was transferred over the floor pending the results of the CT; if there is anything concerning on the CT this will need to be further pursued before transferring over or discussed with the surgeon. 08/11 Still very weak but states little better than when she came to the ED. Took a while for her to fall asleep but finally fell asleep and slept okay. No other issues. Nursing note did report bright red blood. Some lower abdominal discomfort. Review of Systems: denies headache/fever/chills/nausea/vomiting/chest pain/cough/dyspnea. Otherwise see above. - Constitutional Vitals: Vital Signs Temp Pulse Resp BP Pulse Ox 99.0 F 74 20 165/56 95 08/11/18 04:01 08/11/18 05:31 08/11/18 01:14 08/11/18 05:31 08/11/18 05:31 Period Temp Pulse Resp BP Sys/Gallardo Pulse Ox Last 24 Hr 97.9 F-99.0 F 74-98 20-20 100-187/51-98 89-96 Intake and Output 08/10/18 08/11/18 08/11/18 21:59 05:59 13:59 Intake Total 1000 706 Output Total 1450 Balance 1000 -744 Weight 63.503 kg 61.887 kg Intake & Output: Intake & Output 08/10/18 08/11/18 08/11/18 21:59 05:59 13:59 Intake Total 1000 706 Output Total 1450 Balance 1000 -744 Weight 63.503 kg 61.887 kg Intake: IV 1000 56 Sodium Chloride 0.9% 1,000 ml @ 1000 Wide Open IV BOLUS ONE Rx#: [id number] Sodium Chloride 0.9% 250 ml @ 56 20 mls/hr IV .[id number] [facility] Rx#: [id number] Blood Product 650 Output: Urine Catheter Amount 1450 Other: Urine Appearance Clear Uretheral (Ybarra) Clear Clear Urine Color Bright Yellow Uretheral (Ybarra) Straw Bright Yellow Stool Color Bright Red Blood Exam: General: Alert, Awake, No acute Distress Eyes/N/T: EOMI, Head/Neck: neck supple, CV: RRR, No murmurs, Pulm: Clear b/l, no wheezing/rhonchi/rales Abd: soft, +BS x4 Ext: no clubbing/cyanosis/edema Neuro: Alert, no focal deficits, moves all extremities, Skin: warm/dry, pale Medical - PN: Obj Da - Labs CBC & Chem 7: 08/11/18 04:10 08/11/18 04:10 Labs: Abnormal Lab Results 08/11/18 08/11/18 08/10/18 04:10 04:10 21:10 RBC 3.20 L Hgb 10.0 L Hct 28.9 L POC Hct 22.0 L RDW 16.5 H Lymph # (Auto) 1.0 L Sodium POC Chloride Chloride Carbon Dioxide 21 L POC BUN 83 H BUN 81 H Creatinine 6.0 H* POC Creatinine 6.5 H* Calcium 8.1 L POC WB Ioniz Calcium 1.12 L Phosphorus 5.3 H Magnesium 1.2 L C-Reactive Protein 1.3 H Total Protein 5.2 L Albumin 2.7 L 08/10/18 08/10/18 16:52 16:52 RBC 2.34 L Hgb 7.7 L Hct 22.8 L POC Hct 22.0 L RDW 17.3 H Lymph # (Auto) 1.0 L Sodium 132 L POC Chloride 94 L Chloride 92 L Carbon Dioxide POC BUN 84 H BUN 82 H Creatinine 6.2 H* POC Creatinine 6.9 H* Calcium POC WB Ioniz Calcium 1.10 L Phosphorus Magnesium C-Reactive Protein Total Protein 5.8 L Albumin 3.0 L Meds: Medications Acetaminophen (Tylenol) 650 mg PO Q6HP PRN PRN Reason: PAIN/FEVER > 101 Acetaminophen (Tylenol) 650 mg PO Q6HP PRN PRN Reason: PAIN/FEVER > 101 Albuterol/Ipratropium (Duoneb) 3 ml NEB Q4HP PRN PRN Reason: Shortness Of Breath Clonidine HCl (Catapres) 0.05 mg PO TID DENY Furosemide (Lasix) 80 mg PO QDAY DENY Gabapentin (Neurontin) 100 mg PO QHS DENY Labetalol HCl (Trandate) 0 mg IV Q10M PRN PRN Reason: htn Last Admin: 08/11/18 05:38 Dose: 10 mg Documented by: Lorazepam (Ativan) 0.5 mg PO Q5H DENY Nifedipine (Procardia Xl) 30 mg PO QDAY [facility] Non-Formulary Medication (Calcium Acetate) 667 mg PO .TID with meals DENY Non-Formulary Medication (Doxazosin Mesylate [Cardura]) 0 mg .ROUTE .COMPLEX [facility] Non-Formulary Medication (Enalapril) 10 mg PO DAILY [facility] Non-Formulary Medication (Gentamicin Sulfate) 1 applic TOPICAL QDAY [facility] Non-Formulary Medication (Lovastatin) 40 mg PO QHS [facility] Ondansetron HCl (Zofran) 4 mg IV Q4HP PRN PRN Reason: Nausea And Vomiting Pantoprazole Sodium (Protonix) 40 mg IV QAMAC [facility] Paroxetine HCl (Paxil) 30 mg PO QDAY [facility] Promethazine HCl (Phenergan) 0 mg PO Q6HP PRN PRN Reason: Nausea And Vomiting Propranolol HCl (Inderal) 60 mg PO BID [facility] Sodium Bicarbonate (Sodium Bicarbonate) 1,300 mg PO BID [facility] Sodium Chloride (Saline Flush) 10 ml IV Q8 [facility] Last Admin: 08/11/18 05:39 Dose: 10 ml Documented by: Medical - PN: A/P - Time Spent With Patient Total time spent is greater than 50% in coordination of care (as documented) at patient's floor/unit and/or counseling patient: - Narrative A/P Narrative: A: *Generalized weakness/deconditioning/inability to care for self: *Bright red blood per rectum with rectal prolaps: Hemodynamically stable *Anemia, acute on chronic from acute blood loss: Baseline hemoglobin runs 8-9's -received 2 PRBC in ED (08/10) *History of rectal prolapse with bleeding: Follows with Dr. Vigil *ESRD: Peritoneal dialysis with Dr. Boyd *HYponatremia: improved *hypomag: *HTN: *Anxiety/depression: *Tobacco abuse: *GERD: * P: -monitor H&H -Case was discussed with GI in the ED - consult -Dr. Boyd for dialysis/electrolyte abnormalities -cont home clonidine/enalapril/nifedipine/propranolol/doxazosin, prn clonidine and labetalol -pt/ot -Case management for likely SNF placement upon d/c -Smoking cessation counseling -ppx: [facility] - PN: Qual - VTE Deep Vein Thrombosis/Pulmonary Embolism Present on Admission: No
[2018-08-11] MEDS: PANTOPRAZOLE 40 MG VIAL IV SCH (07:51)
[2018-08-11] MEDS ORDERED: LORazepam 0.5 MG TABLET PO SCH ×3 (08:00)
[2018-08-11] MEDS ORDERED: MAGNESIUM OXIDE 400 MG TABLET PO ONE (08:25)
[2018-08-11] MEDS ORDERED: GENTAMICIN CRM 0.1% TUBE 15GM TOPICAL SCH (09:00)
[2018-08-11] MEDS ORDERED: PROPRANOLOL 20 MG TABLET PO SCH (09:00)
[2018-08-11] MEDS: LORazepam 0.5 MG TABLET PO SCH ×5 (09:40→20:25)
[2018-08-11] MEDS: CALCIUM ACETATE 667 MG CAPSULE PO SCH ×3 (09:40→17:21)
[2018-08-11] MEDS: cloNIDine HCL 0.1 MG TABLET PO SCH ×3 (09:41→20:26)
[2018-08-11] MEDS: DOXAZOSIN 1 MG TABLET PO SCH (09:41)
[2018-08-11] MEDS: FUROSEMIDE 80 MG TABLET PO SCH (09:41)
[2018-08-11] MEDS: NIFEdipine 30 MG TAB.XL.24H PO SCH (09:42)
[2018-08-11] MEDS: PARoxetine 20 MG TABLET PO SCH (09:42)
[2018-08-11] MEDS: SODIUM BICARBONATE 650 MG TABLET PO SCH ×2 (09:42→20:26)
[2018-08-11] MEDS: GENTAMICIN 0.1% TOPICAL SCH (09:45)
[2018-08-11] MEDS: PROPRANOLOL 40 MG TABLET PO SCH ×2 (09:45→20:27)
[2018-08-11] MEDS: ACETAMINOPHEN 325 MG TABLET PO PRN (17:21)
[2018-08-11] MEDS ORDERED: MAGNESIUM SULFATE 2 GM/50 ML BAG IV ONE ×2 (20:07→21:55)
[2018-08-11] MEDS ORDERED: PROPRANOLOL 60 MG CAP.XL.24H PO ONE ×2 (20:21→21:24)
[2018-08-11] MEDS ORDERED: GABAPENTIN 100 MG CAPSULE PO SCH (21:00)
[2018-08-11] MEDS ORDERED: DOXAZOSIN 1 MG TABLET PO SCH (21:00)
[2018-08-11] MEDS ORDERED: ATORVASTATIN 20 MG TABLET PO SCH (21:00)
[2018-08-12] MEDS: 0.9 % SODIUM CHLORIDE 10 ML SYRINGE IV SCH ×2 (05:17→14:12)
[2018-08-12 07:02] LABS: Basophils # (Auto) 0.1 K/mcL (0.0-0.3); Basophils % (Auto) 1.3 % (0.0-2.0); Eosinophils # (Auto) 0.1 K/mcL (0.0-0.7); Eosinophils % (Auto) 2.1 % (0.0-7.0); Granulocytes % (Auto) 72.2 % (38.0-78.0); Mean Cell Volume 90.8 fL (80.0-100.0); Mean Corpuscular HGB Conc 33.8 g/dL (31.0-36.0); Monocytes # (Auto) 0.6 K/mcL (0.1-0.9); Monocytes % (Auto) 9.4 % (1.0-12.0); Platelet Count 268 K/mcL (140-440); RBC 3.38 M/mcL (4.00-5.20); Red Cell Distribution Width 17.1 % (11.5-14.5)
[2018-08-12] MEDS: PANTOPRAZOLE 40 MG VIAL IV SCH (07:12)
[2018-08-12 07:36] LABS: ALT/SGPT 6 U/l (0-40); Albumin 2.4 gm/dL (3.2-5.2); Albumin/Globulin Ratio 0.8 (1.0-2.3); Alkaline Phosphatase 83 U/L (39-117); Bilirubin,Direct < 0.2 mg/dL (0.0-0.3); Blood Urea Nitrogen 71 mg/dl (8-23); Gamma Glutamyl Transpeptidase 13 U/L (5-36); Uric Acid 5.3 mg/dL (2.5-8.0)
--- NOTE | 2018-08-12 07:36 | Internal Med Progress Note ---
Medical - PN: Subj Patient information: Note initiated : 08/12/18 at 7:32 am Service Date, if different from initiated Date: [] Patient: Yessy Valderrama a 78 y/o F admitted on 08/11/18 for low Hgb, rectal bleeding. Chief Complaint: [] Interval history: Ms. Valderrama is a 78 year old F Who was sent in by her buckler and lacer Dr. Mccoy for low hemoglobin. Patient also has a headache history of rectal prolapse and follows with Dr. Vigil. she has been feeling very fatigued lately. She has bright red blood per rectum. 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 Patient says she has some bleeding from her right rectum daily for the past 3 to 4 days and she is been feeling weaker. Hemoglobin is checked several times and it remained stable in the upper sevens. She is getting blood in the ER. Blood pressure stable, only a little blood noted in the ED. Case was discussed with Dr. Hernandez from the ED. Patient denies any lightheadedness or chest pain or shortness of breath. CT abdomen pelvis is pending and patient was transferred over the floor pending the results of the CT; if there is anything concerning on the CT this will need to be further pursued before transferring over or discussed with the surgeon. 08/11 Still very weak but states little better than when she came to the ED. Took a while for her to fall asleep but finally fell asleep and slept okay. No other issues. Nursing note did report bright red blood. Some lower abdominal discomfort. 08/12 Feeling better. Wants to go home. Mild headache but otherwise no complaints. Nursing notes report stool was brown. Review of Systems: denies fever/chills/nausea/vomiting/chest pain/cough/dyspnea. Otherwise see above. - Constitutional Vitals: Vital Signs Temp Pulse Resp BP Pulse Ox 98.2 F 72 18 136/71 92 08/12/18 04:01 08/11/18 09:31 08/12/18 04:01 08/12/18 05:01 08/11/18 09:31 Period Temp Pulse Resp BP Sys/Gallardo Pulse Ox Last 24 Hr 96.7 F-99.2 F 72-75 18-20 133-188/51-130 92-98 Intake and Output 08/11/18 08/12/1808/12/19 21:59 05:59 13:59 Intake Total 260 Output Total 1100 725 Balance -840 -725 Weight 61.887 kg Intake & Output: Intake & Output 08/11/18 08/12/18 08/12/18 21:59 05:59 13:59 Intake Total 260 Output Total 1100 725 Balance -840 -725 Weight 61.887 kg Intake: Nourishment/Supplement quantity 60 (ml) Oral 200 Output: Urine Catheter Amount 1100 725 Other: Meal Dinner Percent of Meal Consumed 75% Nourishment/Supplement name nepro Urine Appearance Clear Uretheral (Ybarra) Clear Urine Color Bright Yellow Uretheral (Ybarra) Bright Yellow Urine Odor Normal Stool Size Moderate Stool Color Brown Stool Consistency Loose # Bowel Movements 1 Exam: General: Alert, Awake, No acute Distress Eyes/N/T: EOMI, Head/Neck: neck supple, CV: RRR, No murmurs, Pulm: Clear b/l, no wheezing/rhonchi/rales Abd: soft, +BS x4 Ext: no clubbing/cyanosis/edema Neuro: Alert, no focal deficits, moves all extremities, Skin: warm/dry, pale Medical - PN: Obj Da - Labs CBC & Chem 7: 08/12/18 04:25 08/12/18 04:25 Labs: Abnormal Lab Results 08/12/18 08/11/18 08/11/18 04:25 04:10 04:10 RBC 3.38 L 3.20 L Hgb 10.4 L 10.0 L Hct 30.7 L 28.9 L POC Hct RDW 17.1 H 16.5 H Lymph % (Auto) 15.0 L Lymph # (Auto) 1.0 L 1.0 L Sodium POC Chloride Chloride Carbon Dioxide 21 L POC BUN BUN 81 H Creatinine 6.0 H* POC Creatinine Calcium 8.1 L POC WB Ioniz Calcium Phosphorus 5.3 H Magnesium 1.2 L C-Reactive Protein Total Protein 5.2 L Albumin 2.7 L 08/10/18 08/10/18 08/10/18 21:10 16:52 16:52 RBC 2.34 L Hgb 7.7 L Hct 22.8 L POC Hct 22.0 L 22.0 L RDW 17.3 H Lymph % (Auto) Lymph # (Auto) 1.0 L Sodium 132 L POC Chloride 94 L Chloride 92 L Carbon Dioxide POC BUN 83 H 84 H BUN 82 H Creatinine 6.2 H* POC Creatinine 6.5 H* 6.9 H* Calcium POC WB Ioniz Calcium 1.12 L 1.10 L Phosphorus Magnesium C-Reactive Protein 1.3 H Total Protein 5.8 L Albumin 3.0 L Meds: Medications Acetaminophen (Tylenol) 650 mg PO Q6HP PRN PRN Reason: PAIN/FEVER > 101 Last Admin: 08/11/18 17:21 Dose: 650 mg Documented by: Acetaminophen (Tylenol) 650 mg PO Q6HP PRN PRN Reason: PAIN/FEVER > 101 Albuterol/Ipratropium (Duoneb) 3 ml NEB Q4HP PRN PRN Reason: Shortness Of Breath Atorvastatin Calcium (Lipitor) 10 mg PO [facility] Last Admin: 08/11/18 20:26 Dose: 10 mg Documented by: Calcium Acetate (Phoslo) 667 mg PO TIDCC [facility] Last Admin: 08/11/18 17:21 Dose: 667 mg Documented by: Clonidine HCl (Catapres) 0.05 mg PO TID [facility] Last Admin: 08/11/18 20:26 Dose: 0.05 mg Documented by: Clonidine HCl (Catapres) 0.1 mg PO TIDP PRN PRN Reason: sbp>160 Last Admin: 08/11/18 07:51 Dose: 0.1 mg Documented by: Doxazosin Mesylate (Cardura) 1 mg PO QAM [facility] Last Admin: 08/11/18 09:41 Dose: 1 mg Documented by: Doxazosin Mesylate (Cardura) 2 mg PO HS [facility] Last Admin: 08/11/18 20:27 Dose: 2 mg Documented by: Furosemide (Lasix) 80 mg PO QDAY [facility] Last Admin: 08/11/18 09:41 Dose: 80 mg Documented by: Gabapentin (Neurontin) 100 mg PO QHS [facility] Last Admin: 08/11/18 20:26 Dose: 100 mg Documented by: Labetalol HCl (Trandate) 0 mg IV Q10M PRN PRN Reason: htn Last Admin: 08/11/18 05:38 Dose: 10 mg Documented by: Lisinopril (Zestril) 10 mg PO DAILY [facility] Lorazepam (Ativan) 0.5 mg PO 5XD [facility] Last Admin: 08/11/18 20:25 Dose: 0.5 mg Documented by: Nifedipine (Procardia Xl) 30 mg PO QDAY [facility] Last Admin: 08/11/18 09:42 Dose: 30 mg Documented by: Ondansetron HCl (Zofran) 4 mg IV Q4HP PRN PRN Reason: Nausea And Vomiting Pantoprazole Sodium (Protonix) 40 mg IV QAMAC [facility] Last Admin: 08/12/18 07:12 Dose: 40 mg Documented by: Paroxetine HCl (Paxil) 30 mg PO QDAY [facility] Last Admin: 08/11/18 09:42 Dose: 30 mg Documented by: Gentamicin 0.1% (Topical Ointment) 1 dose TOPICAL DAILY [facility] Last Admin: 08/11/18 09:45 Dose: Not Given Documented by: Promethazine HCl (Phenergan) 0 mg PO Q6HP PRN PRN Reason: Nausea And Vomiting Propranolol HCl (Inderal) 60 mg PO BID [facility] Last Admin: 08/11/18 20:27 Dose: 60 mg Documented by: Sodium Bicarbonate (Sodium Bicarbonate) 1,300 mg PO BID [facility] Last Admin: 08/11/18 20:26 Dose: 1,300 mg Documented by: Sodium Chloride (Saline Flush) 10 ml IV Q8 [facility] Last Admin: 08/12/18 05:17 Dose: 10 ml Documented by: Medical - PN: A/P - Time Spent With Patient Total time spent is greater than 50% in coordination of care (as documented) at patient's floor/unit and/or counseling patient: - Narrative A/P Narrative: A: *Generalized weakness/deconditioning/inability to care for self: *Bright red blood per rectum with rectal prolapse and recent h/o: 2/2 ulcer caused by prolapse -follows with Dr. Estrada -stool now brown instead of BRB *Anemia, acute on chronic from acute blood loss: Baseline hemoglobin runs 8-9's -received 2 PRBC in ED (08/10) -H&H stable *ESRD: Peritoneal dialysis with Dr. Boyd *HYponatremia: improved *hypomag: *HTN: imporved *Anxiety/depression: *Tobacco abuse: *GERD: * P: - -Case was discussed with GI in the ED, no concerns for GI bleed - evaluated, noted cause of bleeding from prolapse and ulcer, no recs, conserv mgmnt -Dr. Boyd for dialysis/electrolyte abnormalities -cont home clonidine/enalapril/nifedipine/propranolol/doxazosin, prn clonidine and labetalol -pt/ot -Case management -Smoking cessation counseling -ppx: [facility] - PN: Qual - VTE Deep Vein Thrombosis/Pulmonary Embolism Present on Admission: No
--- NOTE | 2018-08-12 07:41 | Nephrology Progress Note ---
Subjective Patient information: Note initiated : 08/12/18 at 7:39 am Patient: Yessy Valderrama 78 y/o F admitted on 08/11/18 for low Hgb, rectal b leeding. Chief Complaint: Rectal bleeding Pertinent ROS: Feels better. Weakness. Objective - Vital Signs Vital signs: Vital Signs Temp Pulse Resp BP Pulse Ox 08/12/18 07:01 98.4 F 20 164/72 95 08/12/18 06:01 148/74 08/12/18 05:01 136/71 08/12/18 04:01 98.2 F 18 144/52 08/12/18 03:01 151/60 08/12/18 02:01 145/55 08/12/18 01:01 154/59 08/12/18 00:01 98.4 F 18 149/58 08/11/18 23:01 157/56 08/11/18 22:01 163/60 08/11/18 21:31 156/51 08/11/18 21:01 137/63 08/11/18 20:31 161/59 08/11/18 20:01 99.2 F H 20 172/68 08/11/18 19:31 157/60 08/11/18 19:01 144/66 08/11/18 18:31 155/73 08/11/18 18:01 151/110 08/11/18 17:31 156/130 08/11/18 17:01 143/98 08/11/18 16:31 162/67 08/11/18 16:01 158/59 08/11/18 15:31 149/83 08/11/18 15:01 158/58 08/11/18 14:31 133/54 08/11/18 14:01 143/57 08/11/18 13:31 161/56 08/11/18 13:01 162/70 08/11/18 12:31 147/75 08/11/18 12:01 97.7 F 159/99 08/11/18 11:31 167/57 08/11/18 11:02 169/59 08/11/18 10:31 172/63 08/11/18 10:01 184/66 08/11/18 09:52 96.7 F L 187/61 08/11/18 09:31 72 187/61 92 08/11/18 09:01 72 171/74 92 08/11/18 08:31 98.4 F 174/65 08/11/18 08:22 75 188/73 98 Intake and Output 08/11/18 08/12/18 08/12/18 21:59 05:59 13:59 Intake Total 260 Output Total 1100 725 Balance -840 -725 Intake: Nourishment/Supplement quantity 60 (ml) Oral 200 Output: Urine Catheter Amount 1100 725 Other: Meal Dinner Percent of Meal Consumed 75% Nourishment/Supplement name nepro Urine Appearance Clear Uretheral (Ybarra) Clear Urine Color Bright Yellow Uretheral (Ybarra) Bright Yellow Urine Odor Normal Stool Size Moderate Stool Color Brown Stool Consistency Loose # Bowel Movements 1 Weight 136 lb 7 oz Intake & Output: Intake & Output 08/11/18 08/12/18 08/12/18 21:59 05:59 13:59 Intake Total 260 Output Total 1100 725 Balance -840 -725 Weight 136 lb 7 oz Intake: Nourishment/Supplement quantity 60 (ml) Oral 200 Output: Urine Catheter Amount 1100 725 Other: Meal Dinner Percent of Meal Consumed 75% Nourishment/Supplement name nepro Urine Appearance Clear Uretheral (Ybarra) Clear Urine Color Bright Yellow Uretheral (Ybarra) Bright Yellow Urine Odor Normal Stool Size Moderate Stool Color Brown Stool Consistency Loose # Bowel Movements 1 - General Appearance General appearance: appears started age, fatigue EENT: mucous membranes moist Neck: supple Respiratory: clear Cardiology: no edema Gastrointestinal: no tenderness Integumentary: warm and dry Neurologic: no focal deficit, alert and oriented x3 Musculoskeletal: no deformities Psychiatric: mood/affect appropriate, cooperative - Lab 08/12/18 04:25 08/12/18 04:25 Most recent lab results Calcium 8.4 mg/dl (8.6-10.4) L 08/12/18 04:25 Phosphorus 4.3 mg/dL (2.7-4.5) 08/12/18 04:25 Magnesium 1.9 mg/dL (1.6-2.5) 08/12/18 04:25 Assessment and Plan (1) ESRD (end stage renal disease) on dialysis Yessy Valderrama is a 78-year-old female with end stage renal disease due to diabetic nephropathy and hypertensive nephrosclerosis by kidney biopsy admitted on 5/15/19 for recurrent rectal prolapse associated with pain and bleeding. End stage renal disease. She switched from hemodialysis to peritoneal dialysis. Currently has been doing 2 CAPD exchanges at home. Plan: CAPD with icodextrin 7.5% 2000 ml twice daily 8-16 hours dwells. Status: Chronic Priority: Medium (2) Anemia in ESRD (end-stage renal disease) The patient received Aranesp and Ferrlecit on 08/10/18 [facility] and 2 units PRBC in ED. Hb >10.0 and stable. Status: Chronic Priority: Medium (3) Hypomagnesemia Common with [facility]. Received magnesium Sulfate 2 gram IV x 1. Resolved. Status: Resolved Priority: Medium
[2018-08-12] MEDS: CALCIUM ACETATE 667 MG CAPSULE PO SCH ×2 (07:49→12:07)
[2018-08-12] MEDS: ACETAMINOPHEN 325 MG TABLET PO PRN (07:49)
--- NOTE | 2018-08-12 08:25 | Discharge Summary ---
Medical - DS: Prov Patient information: Note initiated : 08/12/18 at 8:23 am Service Date, if different from initiated Date: [] Patient: Yessy Valderrama 78 y/o F admitted on 08/11/18 for low Hgb, rectal bleeding. Chief Complaint: [] Date of admission: 08/11/18 01:01 Discharge date: 08/12/18 Primary care physician: Vasu Lazo Consults: 08/10/18 Consult to Physician [CONS] Stat Comment: Consulting Provider: José Luis Mcdonnell Reason For Exam: Physician to Consult 08/11/18 01:02 Consult to Physician [CONS] Routine Comment: Consulting Provider: Arthur Boyd Reason For Exam: Physician to Consult Consult to Physician [CONS] Routine Comment: rectal prolapse with bleeding Consulting Provider: Mimi Vigil Reason For Exam: Physician to Consult Medical - DS: Meds - Discharge Medications Active and Home Medications: Home Medications lovastatin 40 mg tablet 40 mg PO QHS tab 09/14/14 [History Confirmed 08/11/18 Last Taken 08/09/18 21:00] nifedipine ER 30 mg tablet,extended release 30 mg PO QDAY tab 09/14/14 [History Confirmed 08/11/18 Last Taken 08/10/18 08:00] omega-3 fatty acids-fish oil 684 mg-1,200 mg capsule,delayed release 2 cap PO BID cap 09/14/14 [History Confirmed 08/08/18 Last Taken 08/10/18 08:00] Acetaminophen [Tylenol] 650 mg PO Q6HP PRN tab 02/21/17 [Rx Confirmed 08/11/18 Last Taken 08/10/18 08:00] paroxetine 20 mg tablet 30 mg PO QDAY tab 06/22/17 [History Confirmed 08/11/18 Last Taken 08/10/18 08:00] omeprazole 20 mg capsule,delayed release 20 mg PO QDAY cap 10/05/17 [History Confirmed 08/11/18 Last Taken 08/10/18 08:00] Enalapril [Vasotec] 10 mg PO DAILY 12/09/17 [History Confirmed 08/11/18 Last Taken 08/10/18 08:00] Propranolol [Inderal] 60 mg PO BID 12/09/17 [History Confirmed 08/11/18 Last Taken 08/10/18 08:00] gentamicin 0.1 % topical ointment 1 applic TOPICAL QDAY #30 g 04/01/18 [Rx Confirmed 08/11/18 Last Taken 07/28/18] clonidine HCl 0.1 mg tablet 0.05 mg PO TID #45 tab 04/26/18 [Rx Confirmed 08/11/18 Last Taken 08/10/18 12:00] gabapentin 100 mg capsule 100 mg PO QHS #30 cap 06/28/18 [Rx Confirmed 08/11/18 Last Taken 08/10/18 08:00] calcium acetate 667 mg capsule 667 mg PO .TID with meals #270 cap 07/06/18 [Rx Confirmed 08/11/18 Last Taken 08/10/18 12:00] levofloxacin 250 mg tablet 250 mg PO Q48H #4 tab 07/17/18 [Rx Confirmed 08/11/18 Last Taken 07/28/18] doxazosin 2 mg tablet See Rx Instructions .ROUTE .COMPLEX #135 tab 07/25/18 [Rx Confirmed 08/11/18 Last Taken 08/10/18 08:00] furosemide 80 mg tablet 80 mg PO QDAY #90 tab 07/25/18 [Rx Confirmed 08/11/18 Last Taken 08/10/18 08:00] sodium bicarbonate 650 mg tablet 1,300 mg PO BID #120 tab 07/26/18 [Rx Confirmed 08/11/18 Last Taken 08/10/18 08:00] LORazepam [Ativan] 0.5 mg PO 5XD 08/11/18 [History Confirmed 08/11/18 Last Taken Unknown] Medical - DS: Hosp Hospital course: Ms. 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 Mccoy for low hemoglobin. Patient also has a headache history of rectal prolapse and follows with Dr. Vigil. she has been feeling very fatigued lately. She has bright red blood per rectum. 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 Patient says she has some bleeding from her right rectum daily for the past 3 to 4 days and she is been feeling weaker. Hemoglobin is checked several times and it remained stable in the upper sevens. She is getting blood in the ER. Blood pressure stable, only a little blood noted in the ED. Case was discussed with Dr. Hernandez from the ED. Patient denies any lightheadedness or chest pain or shortness of breath. CT abdomen pelvis is pending and patient was transferred over the floor pending the results of the CT; if there is anything concerning on the CT this will need to be further pursued before transferring over or discussed with the surgeon. 08/11 Still very weak but states little better than when she came to the ED. Took a while for her to fall asleep but finally fell asleep and slept okay. No other issues. Nursing note did report bright red blood. Some lower abdominal discomfort. 08/12 Feeling better. Wants to go home. Mild headache but otherwise no complaints. Nursing notes report stool was brown. Discharge diagnosis: Rectal bleeding from ulcer from prolapse, anemia, generalized weakness Secondary discharge diagnosis: Chronic anemia end-stage renal disease electrolyte abnormalities hypertension depression anxiety tobacco abuse - Time Spent with Patient Total time spent providing and/or coordinating discharge services: Medical - DS: Exam - Constitutional Vitals: Vital Signs Temp Pulse Resp BP Pulse Ox 08/12/18 07:01 98.4 F 20 164/72 95 08/12/18 06:01 148/74 08/12/18 05:01 136/71 08/12/18 04:01 98.2 F 18 144/52 08/12/18 03:01 151/60 08/12/18 02:01 145/55 08/12/18 01:01 154/59 08/12/18 00:01 98.4 F 18 149/58 08/11/18 23:01 157/56 08/11/18 22:01 163/60 08/11/18 21:31 156/51 08/11/18 21:01 137/63 08/11/18 20:31 161/59 08/11/18 20:01 99.2 F H 20 172/68 08/11/18 19:31 157/60 08/11/18 19:01 144/66 08/11/18 18:31 155/73 08/11/18 18:01 151/110 08/11/18 17:31 156/130 08/11/18 17:01 143/98 08/11/18 16:31 162/67 08/11/18 16:01 158/59 08/11/18 15:31 149/83 08/11/18 15:01 158/58 08/11/18 14:31 133/54 05/16/19 14:01 143/57 08/11/18 13:31 161/56 08/11/18 13:01 162/70 08/11/18 12:31 147/75 08/11/18 12:01 97.7 F 159/99 08/11/18 11:31 167/57 08/11/18 11:02 169/59 08/11/18 10:31 172/63 08/11/18 10:01 184/66 08/11/18 09:52 96.7 F L 187/61 08/11/18 09:31 72 187/61 92 08/11/18 09:01 72 171/74 92 08/11/18 08:31 98.4 F 174/65 Intake and Output 08/11/18 08/12/18 08/12/18 21:59 05:59 13:59 Intake Total 260 Output Total 1100 725 Balance -840 -725 Intake: Nourishment/Supplement quantity 60 (ml) Oral 200 Output: Urine Catheter Amount 1100 725 Other: Meal Dinner Percent of Meal Consumed 75% Nourishment/Supplement name nepro Urine Appearance Clear Uretheral (Ybarra) Clear Urine Color Bright Yellow Uretheral (Ybarra) Bright Yellow Urine Odor Normal Stool Size Moderate Stool Color Brown Stool Consistency Loose # Bowel Movements 1 Weight 61.887 kg Medical - DS: Data Labs on day of discharge: Labs from last 24 hours 08/12/18 08/12/18 04:25 04:25 WBC 6.4 RBC 3.38 L Hgb 10.4 L Hct 30.7 L MCV 90.8 MCH 30.7 MCHC 33.8 RDW 17.1 H Plt Count 268 MPV 8.1 Gran % 72.2 Lymph % (Auto) 15.0 L [place] % (Auto) 9.4 Eos % (Auto) 2.1 Baso % (Auto) 1.3 Gran # 4.6 Lymph # (Auto) 1.0 L [place] # (Auto) 0.6 Eos # (Auto) 0.1 Baso # (Auto) 0.1 Sodium 134 Potassium 3.4 Chloride 96 Carbon Dioxide 22 Anion Gap 16.0 BUN 71 H Creatinine 6.0 H* GFR Calculation 6 Glucose 92 Uric Acid 5.3 Calcium 8.4 L Phosphorus 4.3 Magnesium 1.9 Total Bilirubin 0.4 Direct Bilirubin < 0.2 GGT 13 AST 9 ALT 6 Alkaline Phosphatase 83 Lactate Dehydrogenase 188 Total Protein 5.3 L Albumin 2.4 L Globulin 2.9 Albumin/Globulin Ratio 0.8 L Triglycerides 117 Medical - DS: A/P - Patient/Caregiver Discharge Instructions Activity: increase activity as tolerated Diet: Renal - Follow up Plan Follow up with: Vasu Lazo MD [Primary Care Provider] - Disposition: Home Health Service Prognosis: Fair Rehab Potential: Fair Overall status at discharge: patient is back to baseline Medical - DS: Qual - VTE Deep Vein Thrombosis/Pulmonary Embolism Present on Admission: No
[2018-08-12] MEDS ORDERED: LISINOPRIL 10 MG TABLET PO SCH (09:00)
[2018-08-12] MEDS: FUROSEMIDE 80 MG TABLET PO SCH (09:35)
[2018-08-12] MEDS: PARoxetine 20 MG TABLET PO SCH (09:35)
[2018-08-12] MEDS: SODIUM BICARBONATE 650 MG TABLET PO SCH (09:35)
[2018-08-12] MEDS: DOXAZOSIN 1 MG TABLET PO SCH (09:35)
[2018-08-12] MEDS: LORazepam 0.5 MG TABLET PO SCH ×3 (09:35→14:12)
[2018-08-12] MEDS: PROPRANOLOL 40 MG TABLET PO SCH (09:36)
[2018-08-12] MEDS: NIFEdipine 30 MG TAB.XL.24H PO SCH (09:36)
[2018-08-12] MEDS: cloNIDine HCL 0.1 MG TABLET PO SCH ×2 (09:36→14:11)
[2018-08-12] MEDS: GENTAMICIN 0.1% TOPICAL SCH (10:25)
== END 2018-08-12 15:50 | disposition home health service (06) ==
LOC: ED 16:24 → ICU 08-11 01:01 → INTOOBSV 08-11 01:01 → ICU 08-11 01:10
PROVIDERS: ADMIT Internal Medicine; ATTEND Internal Medicine